=== PATIENT | male | born 1955 | race Caucasian/White ===

== ENCOUNTER 2020-10-06 13:37 | Outpatient (REF) | payer OTHER, SELFPAY ==
--- NOTE | ~2020-10-06 | XR_ITS ---
EXAMINATION: XR HAND, LEFT CLINICAL INFORMATION: S69.90XA - Unspecified injury of unspecified wrist, hand COMPARISON: None TECHNIQUE: PA, lateral, and oblique views of the left hand. FINDINGS: There is no fracture dislocation or destructive process. The ulnar variance is neutral. The MCP and PIP joints are unremarkable. There is some mild spurring at the DIP joints. No erosive change. XR/XR hand LT min 3V IMPRESSION: No fracture or dislocation or destructive process.
== END 2020-10-06 13:38 | disposition home or self-care (01) ==
LOC: HO.HMGCX 13:37
PROVIDERS: PCP Nurse Practitioner Family; Visit Provider Nurse Practitioner Family
DX: S69.92XA Unspecified injury of left wrist, hand and finger(s), initial encounter (principal); X58.XXXA Exposure to other specified factors, initial encounter; Y93.9 Activity, unspecified; Y92.9 Unspecified place or not applicable; Y99.9 Unspecified external cause status
CPT/HCPCS: 73130

== ENCOUNTER 2020-10-22 15:46 | Outpatient (REF) | payer OTHER, SELFPAY | END 2020-10-22 15:47 | disposition home or self-care (01) | LOC: HO.LNP 15:46 | PROVIDERS: Visit Provider Nurse Practitioner Family | DX: S41.109A Unspecified open wound of unspecified upper arm, initial encounter (principal); X58.XXXA Exposure to other specified factors, initial encounter; Y93.9 Activity, unspecified; Y92.9 Unspecified place or not applicable; Y99.9 Unspecified external cause status | CPT/HCPCS: 87071; 87147; 87186; 87205 ==

== ENCOUNTER 2021-03-16 10:03 | Outpatient (REF) | payer OTHER, SELFPAY ==
--- NOTE | ~2021-03-16 | XR_ITS ---
EXAMINATION: XR LUMBOSACRAL SPINE CLINICAL INFORMATION: Low back pain. COMPARISON: MRI lumbar spine 05/03/2010 TECHNIQUE: AP and lateral views of the lumbosacral spine are obtained. A lateral coned-down view of the lumbosacral junction is obtained. FINDINGS: There is no acute fracture or subluxation. There is worsening severe degenerative disc disease at L5-S1, with severe disc space narrowing, endplate sclerosis, and marginal osteophytes. There is moderate bilateral facet arthropathy at L4-L5 and L5-S1. XR/XR lumbar spine 2-3V IMPRESSION: Worsening severe degenerative disc disease at L5-S1 and moderate bilateral facet arthropathy at L4-L5 and L5-S1.
== END 2021-03-16 10:04 | disposition home or self-care (01) ==
LOC: HO.HMGCX 10:03
PROVIDERS: PCP Nurse Practitioner Family; Visit Provider Nurse Practitioner Family
DX: Z13.89 Encounter for screening for other disorder (principal)
CPT/HCPCS: 72100

== ENCOUNTER 2021-04-19 09:40 | Outpatient (REF) | payer OTHER, SELFPAY | END 2021-04-19 09:41 | disposition home or self-care (01) | LOC: HO.MRI 09:40 | PROVIDERS: Visit Provider Nurse Practitioner Family | DX: Z13.89 Encounter for screening for other disorder (principal) ==

== ENCOUNTER 2021-05-05 08:51 | Outpatient (REF) | payer OTHER, SELFPAY ==
--- NOTE | ~2021-05-05 | MR_ITS ---
EXAMINATION: MR LUMBAR SPINE WITHOUT CONTRAST CLINICAL INFORMATION: Lower back pain. COMPARISON: Lumbar spine MRI from 05/03/2010. Lumbar spine radiographs from 03/16/2021. TECHNIQUE: MRI of the lumbar spine was obtained using routine sequences without contrast. FINDINGS: Minimal degenerative spaces of L5 on S1. Otherwise, normal anatomic alignment. Advanced degenerative disc disease at L5-S1. Mild degenerative disc disease from L2-L5. Associated mixed Modic type discogenic endplate changes including minimal Modic type I discogenic edema at L5-S1. Mild marrow edema associated with the L3-L4 facets suggestive of degenerative stress reaction. No additional suspicious marrow edema. The vertebral body heights are well-maintained. The conus medullaris terminates at the level of L1-L2. The distal spinal cord is normal in appearance. No significant abnormalities of the paraspinal musculature. Multiple bilateral peripelvic renal cysts. Otherwise, limited evaluation of the intra-abdominal structures without significant abnormalities. The abdominal aorta is of normal contour and caliber. AXIAL SPINAL LEVELS: L1-L2: Normal annular contour. There is mild bilateral facet joint arthropathy. There is no neural foraminal stenosis. There is no spinal canal stenosis. L2-L3: Shallow diffuse disc bulge. There is mild bilateral facet joint arthropathy. There is no neural foraminal stenosis. There is no spinal canal stenosis. L3-L4: Shallow diffuse disc bulge. There is mild bilateral facet joint arthropathy. There is mild right and no left neural foraminal stenosis. There is no spinal canal stenosis. L4-L5: Mild diffuse disc bulge with superimposed right foraminal disc protrusion. There is moderate bilateral facet joint arthropathy. There is mild bilateral neural foraminal stenosis. There is narrowing of the subarticular zones with no overt spinal canal stenosis centrally. L5-S1: Mild diffuse disc bulge with posterior osseous ridging. There is moderate facet joint arthropathy. There is moderate bilateral neural foraminal stenosis. There is no spinal canal stenosis. MR/MR lumbar spine wo con IMPRESSION: Mild to moderate multilevel degenerative spondyloarthropathy of the lumbar spine as described in detail above. Most notably, there are moderate neural foraminal stenoses at L5-S1. Mild narrowings of the neural foramina and subarticular zones at L4-L5. No overt spinal canal stenosis centrally. Overall, degenerative changes appear similar to slightly progressed compared to exam from 2009.
== END 2021-05-05 08:52 | disposition home or self-care (01) ==
LOC: HO.MRI 08:51
PROVIDERS: Visit Provider Nurse Practitioner Family
DX: M54.50 Low back pain, unspecified (principal); M51.36 Other intervertebral disc degeneration, lumbar region
CPT/HCPCS: 72148

== ENCOUNTER 2021-06-01 07:46 | Outpatient (REF) | payer OTHER, SELFPAY ==
--- NOTE | ~2021-06-01 | CT_ITS ---
EXAMINATION: CT CHEST SCREENING CLINICAL INFORMATION: Nicotine dependence. Current smoker. COMPARISON: 01/03/2019 and 01/01/2018. TECHNIQUE: Multidetector volumetric CT imaging of the chest is performed without contrast using low dose technique. Additional 2D coronal and sagittal reformatted images and axial 3D maximum intensity projection (MIP) images are generated on the CT workstation. This CT examination was performed using dose optimization techniques as appropriate, variously including the following: *Automated exposure control *Adjustment of mA and/or kV according to patient size (this includes techniques or standardized protocols for targeted exams where dose is matched to indication/reason for exam; i.e. extremities or head) *Use of iterative reconstruction technique DLP: 48 mGy-cm. CTDI: 1.55 mGy. FINDINGS: LUNGS: Central airways are patent. There is some mild central bronchial wall thickening seen bilaterally. No confluent parenchymal disease identified. No bronchiectasis is seen. There are bujw-bj-tmoyglqq changes of centrilobular and paraseptal emphysema present. Calcified granulomas are present. There are a few scattered sub-4 mm noncalcified densities present. No suspicious lung masses identified. MEDIASTINUM: Visualized thyroid gland appears unremarkable. Heart normal size. Mild coronary artery calcified plaque present. No pericardial effusion. No thoracic aortic aneurysm. No mediastinal or hilar lymphadenopathy is appreciated. PLEURA: There is no pleural effusion. No pleural mass or thickening. AXILLA: No lymphadenopathy. UPPER ABDOMEN: Unremarkable OSSEOUS STRUCTURES: No destructive bony lesions are appreciated. CT/CT lung screening IMPRESSION: No suspicious lung nodules identified. Old granulomatous disease. ASSESSMENT: Lung-RADS category 2: Benign RECOMMENDATION: Routine annual low-dose CT screening in 12 months.
== END 2021-06-01 07:47 | disposition home or self-care (01) ==
LOC: HO.CT 07:46
PROVIDERS: PCP Nurse Practitioner Family; Visit Provider Physician Assistant Medical
DX: Z12.2 Encounter for screening for malignant neoplasm of respiratory organs (principal); F17.210 Nicotine dependence, cigarettes, uncomplicated
CPT/HCPCS: 71271

== ENCOUNTER 2021-12-09 15:40 | Outpatient (REF) | payer OTHER, SELFPAY ==
--- NOTE | ~2021-12-09 | XR_ITS ---
EXAMINATION: XR WRIST, RIGHT CLINICAL INFORMATION: Right wrist pain. COMPARISON: None TECHNIQUE: PA, lateral, and oblique views of the right wrist. FINDINGS: The bones and soft tissues are normal. No fracture. Alignment is anatomic with normal joint spaces. Probable old healed fifth metacarpal fracture. No erosions or abnormal soft tissue calcifications. XR/XR wrist RT min 3V IMPRESSION: No acute right wrist abnormality.
--- NOTE | ~2021-12-09 | XR_ITS ---
EXAMINATION: XR FOREARM, RIGHT CLINICAL INFORMATION: Right forearm pain. COMPARISON: None TECHNIQUE: AP and lateral views of the right forearm were obtained. FINDINGS: The bones and soft tissues are normal. No fracture. Imaged portions of the elbow and wrist are unremarkable. XR/XR forearm RT 2V IMPRESSION: Unremarkable right forearm.
== END 2021-12-09 15:41 | disposition home or self-care (01) ==
LOC: HO.HMGCX 15:40
PROVIDERS: PCP Nurse Practitioner Family; Visit Provider Nurse Practitioner Family
DX: M79.631 Pain in right forearm (principal); M25.531 Pain in right wrist
CPT/HCPCS: 73090; 73110

== ENCOUNTER 2022-03-15 15:31 | Outpatient (REF) | payer OTHER, SELFPAY ==
--- NOTE | ~2022-03-15 | MR_ITS ---
EXAMINATION: MRI FOREARM WITHOUT CONTRAST, RIGHT CLINICAL INFORMATION: Forearm pain. COMPARISON: X-ray 12/09/2021. TECHNIQUE: MRI multiplanar multisequence imaging in a high-field magnet without contrast. FINDINGS: Large ohdwv-bo-jmpc study, rylgf-mz-zobs extending from the level of the distal humeral metadiaphysis to the mid hand, limiting evaluation. There is significant motion artifact degrading images. In particular, there is significant motion artifact on the axial sequences. On the provided sequences, there is an area of amorphous increased T2/intermediate T1 signal, in the distal forearm at the level of the distal radial metadiaphysis. This is located in the region of the palmar muscles, possibly in the region of the flexor digitorum superficialis muscle. This extends over a distance of approximately 1 x 0.5 x 4.1 cm (transverse, AP, length). Reference image 6:04-29, 4:04-26. This is incompletely imaged and evaluated. No gross signal abnormalities otherwise in the muscles on the motion degraded sequence.. No significant abnormality is identified along the course of the neurovascular bundles. No evidence of obvious abnormal marrow signal in the visualized radius and ulna. MR/MR forearm RT wo con IMPRESSION: Large bkcsd-ob-cjug study with significant motion artifact degrading images, limiting evaluation. Apparent area of abnormal signal in the palmar muscles at the level of the distal forearm measuring approximately 1 x 0.5 x 4.1 cm. This is of indeterminate etiology and significance. This can be further evaluated with repeat MRI of the forearm without and with contrast.
== END 2022-03-15 15:32 | disposition home or self-care (01) ==
LOC: HO.MRI 15:31
PROVIDERS: Visit Provider Nurse Practitioner Family
DX: M79.631 Pain in right forearm (principal)
CPT/HCPCS: 73218

== ENCOUNTER 2022-04-15 08:06 | Outpatient (REF) | payer OTHER, SELFPAY ==
--- NOTE | ~2022-04-15 | MR_ITS ---
EXAMINATION: MR UPPER EXTREMITY WITHOUT CONTRAST, RIGHT CLINICAL INFORMATION: Right forearm pain. COMPARISON: 03/15/2022 TECHNIQUE: MRI of the right forearm was performed using routine sequences on a high-field scanner. The imaging of the patient with the forearm by the side significantly limits the assessment. There is significant motion artifact as well, particularly on axial T2 fat-saturated sequences and sagittal STIR sequences. Axial T2 fat-saturated sequences were repeated. There is poor fat saturation at the proximal and distal margins of the assessment, likely related to field inhomogeneity that was exacerbated by the positioning of the patient's arm. As on the prior study, the large [id number] limits the sensitivity and specificity of the study. FINDINGS: The previously seen abnormal T2 signal around the palmar musculature of the distal forearm does not demonstrate significant enhancement on postcontrast images. As seen on the prior study, this measures approximately 3.6 x 0.8 x 0.5 cm and occurs around the myotendinous junction of the flexor digitorum superficialis within the distal forearm, deep to the flexor carpi radialis tendon, around the region of the median nerve. No additional signal abnormalities are identified. No abnormal enhancement on postcontrast images. Bones are normal in signal intensity. No muscle atrophy or abnormal muscle enhancement. Tendons appear intact. Joints are unremarkable. MR/MR forearm RT wo/w con IMPRESSION: Assessment of the abnormality in the distal forearm is also limited by the large nqilh-al-twhy, positioning, and motion. There is no appreciable enhancement of this lesion on postcontrast images. It occurs along the course of the median nerve and could correspond to a peripheral nerve sheath tumor. A focal muscle strain is also on the differential, though felt to be less likely as it appears to have discrete margins on these images. Consider localized ultrasound to the palmar aspect of the distal forearm at the median nerve for further assessment.
== END 2022-04-15 08:07 | disposition home or self-care (01) ==
LOC: HO.MRI 08:06
PROVIDERS: Visit Provider Nurse Practitioner Family
DX: M79.631 Pain in right forearm (principal); R93.6 Abnormal findings on diagnostic imaging of limbs
CPT/HCPCS: 73220; A9585

== ENCOUNTER 2022-05-11 11:19 | Outpatient (REF) | payer OTHER, SELFPAY ==
--- NOTE | ~2022-05-11 | US_ITS ---
EXAMINATION: ULTRASOUND NONVASCULAR UPPER EXTREMITY, RIGHT CLINICAL INFORMATION: Distal forearm pain. Evaluate median nerve. COMPARISON: MRI 03/15/2022 and 04/15/2022 TECHNIQUE: Targeted ultrasound along the volar aspect of the distal right forearm. FINDINGS: There is a hypoechoic and slightly heterogeneous lesion of the median nerve just proximal to the carpal tunnel measuring 3.5 x 0.8 x 1.7 cm. Patient reports a history of carpal tunnel surgery. May represent a peripheral nerve sheath tumor or possibly a posttraumatic neuroma. This corresponds with the slightly heterogeneous and T2 hyperintense lesion on the MRI. US/US extremity nonvascular nieto IMPRESSION: The structure along the volar aspect of the distal right forearm is of the median nerve, possibly a peripheral nerve sheath tumor or neuroma.
== END 2022-05-11 11:20 | disposition home or self-care (01) ==
LOC: HO.HMGCX 11:19
PROVIDERS: PCP Nurse Practitioner Family; Visit Provider Nurse Practitioner Family
DX: M79.631 Pain in right forearm (principal); R93.6 Abnormal findings on diagnostic imaging of limbs
CPT/HCPCS: 76882

== ENCOUNTER → 2022-05-31 14:24 | Outpatient (BNVA) | payer OTHER, SELFPAY | PROVIDERS: PCP Nurse Practitioner Family; Visit Provider Physician Assistant | DX: M79.631 Pain in right forearm (principal); M25.521 Pain in right elbow; M25.531 Pain in right wrist; R93.6 Abnormal findings on diagnostic imaging of limbs | CPT/HCPCS: 99202 ==

== ENCOUNTER → 2022-06-15 10:01 | Outpatient (BNVA) | payer OTHER, SELFPAY | PROVIDERS: PCP Nurse Practitioner Family; Visit Provider Orthopaedic Surgery | DX: M79.631 Pain in right forearm (principal); G56.01 Carpal tunnel syndrome, right upper limb | CPT/HCPCS: 99212 ==

== ENCOUNTER 2022-12-14 07:32 | Emergency (ER) | payer OTHER, SELFPAY ==
--- NOTE | ~2022-12-14 | CT_ITS ---
EXAMINATION: CT ABDOMEN AND PELVIS WITH CONTRAST CLINICAL INFORMATION: Abdominal pain and nausea COMPARISON: None available. TECHNIQUE: Multidetector volumetric images were obtained from the superior aspect of the liver through the pubic symphysis following administration 85 mL of Omnipaque 350 intravenous contrast. Sagittal and coronal reformatted images were obtained on the technologist's workstation. Oral contrast: Yes This CT examination was performed using dose optimization techniques as appropriate, variously including the following: *Automated exposure control *Adjustment of mA and/or kV according to patient size (this includes techniques or standardized protocols for targeted exams where dose is matched to indication/reason for exam; i.e. extremities or head) *Use of iterative reconstruction technique DLP: 350 mGy-cm FINDINGS: LUNG BASES: The visualized lung bases are unremarkable. LIVER, GALLBLADDER, AND BILIARY TREE: The liver is normal in size, shape, and attenuation. No focal hepatic lesion or biliary ductal dilatation is present. The gallbladder is unremarkable with no evidence of radiopaque gallstones, gallbladder wall thickening, or obvious pericholecystic inflammatory changes. PANCREAS: Unremarkable. SPLEEN: Unremarkable. ADRENAL GLANDS: Unremarkable. KIDNEYS AND URETERS: Small bilateral renal stones. No hydronephrosis, ureteral dilatation or ureteral stone. Bilateral renal peripelvic cysts. No imaging follow-up recommended. BLADDER: Abnormal soft tissue in the bladder in the left UVJ region. This measures 1.2 x 1.5 cm. The prostate gland is slightly enlarged and protrudes into the base of the bladder however this does not appear to be related to the prostate gland. Possible bladder neoplasm should be considered. Urology consultation and correlation with urine cytology recommended. GASTROINTESTINAL TRACT: Diverticulosis of the colon. No evidence of diverticulitis. The small and large bowel are otherwise unremarkable. The appendix is unremarkable. ABDOMINAL WALL: No significant hernia is appreciated. LYMPH NODES: Normal. VASCULAR: Atherosclerotic disease. No aneurysm. PELVIC VISCERA: The prostate gland is slightly enlarged and protrudes into the base of the bladder. OSSEOUS STRUCTURES: Degenerative disc disease at L5-S1. CT/CT abdomen pelvis w IV con IMPRESSION: Abnormal soft tissue in the bladder near the left UVJ region. Neoplasm should be excluded. Correlation with urine cytology and urology consultation recommended. Small nonobstructing bilateral renal stones. Diverticulosis. Fleischner guidelines were followed.
[2022-12-14 07:40] VITALS: BP 146/84; BP 153/94; PULSE 77; PULSE 80; RESP 18; TEMP 36.8; O2SAT 96; O2SAT 97
--- NOTE | 2022-12-14 07:41 | ED.GENADULT ---
HPI - General Adult General Chief complaint: Abdominal Pain Stated complaint: POP LRF PAIN RAD TO LLF AND LOW BACKPAIN Time Seen by Provider: 12/14/22 07:41 Source: patient and EMS Mode of arrival: EMS Limitations: no limitations History of Present Illness HPI narrative: Patient is a 67 year old assigned male at with a history of DDD and COPD presenting to the emergency department today with right sided flank pain. Patient states that he has been having right flank pain intermittently for the last 4 days. Patient denies any dizziness, lightheadedness, vomiting, fever, chills, blurry vision, double vision, loss of vision, chest pain, difficulty breathing, shortness of breath, back pain, night sweats, pain with urination, increased urinary frequency, increased urinary urgency, blood in his urine or stool, syncope or a near syncopal episode, recent trauma or falls, bowel incontinence, bladder incontinence, bowel retention, bladder retention, or any other complaints at this time. Onset (ago): day(s) (4) Location: abdomen and right Severity: mild Severity scale (1-10): 3 Quality: stabbing Pain Consistency: intermittent Relieving factors: none Exacerbating factors: none Associated symptoms: nausea/vomiting Treatments prior to arrival: none Related Data Home Medications Medication Instructions Recorded Confirmed umeclidinium 62.5 mcg/actuation 1 inh inhalation DAILY 08/23/21 08/23/21 blister powder for inhalation (Incruse Ellipta) Previous Rx's Medication Instructions Recorded ear thermometer #1 ea 05/06/20 tape thermometer (Forehead #1 ea 05/07/20 Thermometer) fluticasone furoate 100 1 inh inhalation DAILY #28 ea 07/29/20 mcg-vilanterol 25 mcg/dose inhalation powder (Breo Ellipta) rolling walker with seat and #1 ea 10/01/20 brakes tizanidine 2 mg capsule 2 mg PO BEDTIME PRN muscle 01/27/21 spasticity 10 days #10 caps chair, wheel (Wheel chair) #1 ea 04/08/21 miscellaneous medical supply 1 ea miscellaneous DAILY weakness 05/06/21 30 days #1 ea ketoconazole 2 % topical cream 1 appl topical DAILY 14 days #30 05/24/21 grams tramadol 100 mg tablet 100 mg PO DAILY PRN pain 10 days 06/01/21 #10 tabs prednisone 10 mg tablet 10 mg PO DAILY 12 days #31 tabs 08/23/21 cetirizine 10 mg tablet 10 mg PO DAILY #90 tabs 11/18/21 tramadol 50 mg tablet 50 mg PO BID PRN pain 7 days #14 03/24/22 tabs diazepam 10 mg tablet 10 mg PO ONCE PRN anxiety/MRI 1 04/06/22 day #1 tab albuterol sulfate 90 mcg/actuation 1 puff inhalation QID PRN 07/11/22 aerosol inhaler (Ventolin HFA) shortness of breath or wheezing #8.5 grams ipratropium 0.5 mg-albuterol 3 mg 3 ml inhalation QID #90 mL 07/12/22 (2.5 mg base)/3 mL nebulization soln pantoprazole 40 mg tablet,delayed 40 mg PO DAILY #90 tabs 09/11/22 release gabapentin 100 mg capsule 100 mg PO BEDTIME 30 days #30 caps 09/30/22 bed wedge #1 ea 10/05/22 atorvastatin 40 mg tablet 40 mg PO DAILY 90 days #90 tabs 12/02/22 cholecalciferol (vitamin D3) 50 50 mcg PO DAILY #90 tabs 12/09/22 mcg (2,000 unit) tablet magnesium citrate 75 ml PO DAILY PRN constipation 12/14/22 #296 mL Allergies Allergy/AdvReac Type Severity Reaction Status Date / Time No Known Allergies Allergy Verified 08/26/22 11:52 [No Known Allergies*] Review of Systems Constitutional: Constitutional: Reports no additional constitutional complaints, Denies chills, Denies fever(s) and Denies night sweats Eyes: Eyes: Reports no additional eye complaints, Denies blurry vision, Denies change in vision, Denies diplopia, Denies eye discharge, Denies loss of vision and Denies eye pain ENT: Denies dizziness Cardiovascular: Cardiovascular: Reports no additional cardiovascular complaints, Denies chest pain, Denies lightheadedness, Denies Loss of Consciousness and Denies dyspnea Respiratory: Respiratory: Reports no additional respiratory complaints and Denies dyspnea Gastrointestinal: Gastrointestinal: Reports no additional gastrointestinal complaints, Denies abdominal pain, Denies melena, Denies hematochezia, Denies change in bowel habits, Denies change in stool character and Reports nausea Genitourinary: Genitourinary: Reports no additional male genitourinary complaints, Denies hematuria, Denies oliguria, Denies difficulty urinating, Denies dysuria, Reports flank pain, Denies urinary frequency, Denies urinary hesitancy, Denies urinary incontinence and Denies urinary urgency Musculoskeletal: Musculoskeletal: Reports no additional musculoskeletal complaints, Denies numbness and Denies tingling Neurologic: Denies dizziness, Denies loss of vision, Denies numbness and Denies tingling Psychiatric: Psychiatric: Reports no additional psychiatric complaints Endocrine: Endocrine: Reports no additional endocrine complaints Hematologic/Lymphatic: Hematologic/Lymphatic: Reports no additional hematologic/lymphatic complaints Allergic/Immunologic: Allergic/Immunologic: Reports no additional allergic/immunologic complaints [facility] Past Medical History Attestation statement: The following information was validated with the patient. Source: old records reviewed and nursing notes reviewed Medical History Asthma GERD (gastroesophageal reflux disease) High cholesterol Muscle pain Social History Social History Housing: Apartment Patient Tobacco Use Status: Former Tobacco user Years Smoked: quit 2 years ago e-Cigarette/Vaping Use: Never Used Second Hand Smoke Exposure: No Advance Directives: No Advance Directives Information Provided: Yes service: No Current occupational status: disabled Physical Exam ED Vital Signs: Vital Signs - 24 hr 12/14/22 07:40 12/14/22 12:17 Temperature 98.3 F 98.3 F Pulse Rate 77 77 Respiratory Rate 18 18 Blood Pressure 153/94 H 153/94 H Pulse Oximetry 97 97 Oxygen Delivery Method Room Air Room Air BMI result Body Mass Index 20.0 Const General: cooperative, no acute distress, alert and awake Nutritional Appearance: well nourished Orientation/consciousness: patient oriented x3 Limitations: no limitations HENMT Head: Yes normal to inspection and Yes atraumatic Ears: hearing grossly normal bilaterally and external ears normal General nose exam: Normal external nose present, no nasal discharge noted and no epistaxis Face and sinus: Yes normal facial exam, No abrasion and No laceration Mouth: Normal oral and palatal mucosa present, no drooling and no muffled voice Eyes General: appearance normal, both eyes and all related structures Periorbital: periorbital findings normal Eyelids: Yes eyelids normal Conjunctivae: conjunctivae normal Pupils: Equal, round and reactive pupils present EOM: EOMs intact bilaterally Neck Neck: Yes normal visual inspection, Yes full ROM and Yes no lymphadenopathy Chest Chest palpation & inspection: normal inspection of the chest Resp Effort & Inspection: normal respiratory effort and able to speak in complete sentences GI Inspection: Yes normal to inspection Palpation (GI): Soft to palpation, not firm, nontender and no guarding General: Yes no CVA tenderness Back/Spine/Pelvis Back: no CVA tenderness Neuro General: patient oriented x3 and moves all extremities Cranial nerves: Yes Equal, round and reactive pupils present Cognition (Neuro): normal cognition Motor exam (neuro): 5/5 motor strength present throughout Sensory Exam: Normal double simultaneous stimulation for sensation Coordination: [id number] test normal Extrem General: Yes normal to inspection, Yes full ROM and Yes capillary refill normal Psych Appearance: grossly normal Mental Status: mental status grossly normal Affect: normal affect Attitude: cooperative Thought process: Normal thought process present Thought content: Normal thought content present Insight: Good insight present (Psych) Medications Administered Discontinued Medications Generic Name Dose Route Start Last Admin Trade Name Ezra PRN Reason Stop Dose Admin Iohexol 100 ml 12/14/22 08:54 12/14/22 08:55 Iohexol 350 Mg/Ml 100 Ml Infus..Btl IV 12/14/22 08:55 85 ml ONCE ONE Administration Ketorolac Tromethamine 15 mg 12/14/22 07:41 12/14/22 08:09 Ketorolac Tromethamine 15 Mg/Ml Vial IVPUSH 12/14/22 07:42 15 mg ONCE ONE Administration Medical Decision Making Medical Decision Making [facility] Narrative: Patient is a 67 year old assigned male at with a history of COPD and DDD presenting to the emergency department today with right flank pain. Patient's physical exam was unremarkable. Patient's blood work was unremarkable. Patient's abdomen/pelvis CT showed a possible bladder neoplasm as well as bilateral non-obstructing renal stones. I consulted with urology who confirmed the patient was appropriate for discharge and should follow up in the office on an outpatient basis for further work up of the possible neoplasm. I explained my physical exam findings as well as all test results to the patient. I answered all questions asked by the patient. I stressed the importance of the patient taking his medication as prescribed. I stressed the importance of the patient following up with his primary care provider. I stressed the importance of the patient returning to the emergency department immediately if his symptoms were to worsen or if he were to develop any dizziness, shortness of breath, difficulty breathing, chest pain, blurry vision, loss of vision, nausea, vomiting, abdominal pain, fever, chills, back pain, or any other complaints. Patient verbalized agreement and understanding with this treatment plan and discharge. Differential Diagnosis Differential Diagnoses: The differential diagnosis associated with the presentation includes bladder neoplasm, constipation, passed kidney stones Admission/Observation Patient would have been admitted to the hospital had his work up had any findings where hospital admission was appropriate. Consult Healthcare Provider Management of the patient was discussed with: [employer] (spoke with urology as noted in the MDM portion of this chart. ) Lab Data [facility] Lab Attestation statement: I reviewed the patient's lab results. 12/14/22 08:06 12/14/22 08:06 Labs: Lab Results 12/14/22 12/14/22 12/14/22 Range/Units 08:03 08:03 08:06 WBC 4.9 (4.8-10.8) X10*3/uL RBC 5.28 (4.60-5.80) X10*6/uL Hgb 15.9 (14.0-18.0) g/dl Hct 47.5 (42.0-52.0) % MCV 90.0 (80.0-98.0) fL MCH 30.1 (27.0-33.0) pg MCHC 33.5 (31.0-36.0) g/dl RDW 12.9 (11.0-16.0) % Plt Count 192 (160-400) X10*3/uL MPV 9.1 L (9.4-12.4) fL Immature Gran % (Auto) 0.4 (0.0-0.4) % Neut % (Auto) 69.3 (45-73) % Lymph % (Auto) 17.6 L (20-40) % [place] % (Auto) 9.8 (2-11) % Eos % (Auto) 2.5 (0-4) % Baso % (Auto) 0.4 (0-2) % Lymph # (Auto) 0.9 L (1.2-4.9) X10*3/uL [place] # (Auto) 0.5 (0.1-1.2) X10*3/uL Eos # (Auto) 0.1 (0.0-0.4) X10*3/uL Baso # (Auto) 0.0 (0.0-0.2) X10*3/uL Abs Immat Gran (auto) 0.02 (0.00-0.03) X10*3/uL Absolute Neuts (auto) 3.4 (2.0-8.3) x10*3/uL Absolute Nucleated RBC 0.000 (0.0-0.012) X10*3/uL Nucleated RBC % (auto) 0.0 (0.0-0.2) /100WBC Sodium (135-145) mmol/L Potassium (3.3-5.1) mmol/L Chloride (96-108) mmol/L Carbon Dioxide (22-29) mmol/L Anion Gap (12-20) BUN (9-16) mg/dL Creatinine (0.5-1.4) mg/dL Estim Creat Clear Calc Estimated GFR Random Glucose (60-115) mg/dL Calcium (8.4-10.2) mg/dL Magnesium (1.6-2.6) mg/dL Total Bilirubin (0.0-1.0) mg/dL AST (5-37) U/L ALT (0-40) U/L Alkaline Phosphatase (39-117) U/L Total Protein (6.5-8.0) g/dL Albumin (3.5-5.0) g/dL Urine Color Yellow Urine Appearance Clear Urine pH 8.0 (5.0-9.0) Ur Specific [place] 1.015 (1.005-1.025) Urine Protein Negative (Neg-Trace) mg/dL Urine Glucose (UA) Negative (Negative) mg/dL Urine Ketones Negative (Negative) mg/dL Urine Blood Negative (Negative) Urine Nitrite Negative (Negative) Ur Leukocyte Esterase Negative (Negative) COVID-19 (ADRIANA) Negative (Negative) COVID-19 Clin Com See Note 12/14/22 Range/Units 08:06 WBC (4.8-10.8) X10*3/uL RBC (4.60-5.80) X10*6/uL Hgb (14.0-18.0) g/dl Hct (42.0-52.0) % MCV (80.0-98.0) fL MCH (27.0-33.0) pg MCHC (31.0-36.0) g/dl RDW (11.0-16.0) % Plt Count (160-400) X10*3/uL MPV (9.4-12.4) fL Immature Gran % (Auto) (0.0-0.4) % Neut % (Auto) (45-73) % Lymph % (Auto) (20-40) % [place] % (Auto) (2-11) % Eos % (Auto) (0-4) % Baso % (Auto) (0-2) % Lymph # (Auto) (1.2-4.9) X10*3/uL [place] # (Auto) (0.1-1.2) X10*3/uL Eos # (Auto) (0.0-0.4) X10*3/uL Baso # (Auto) (0.0-0.2) X10*3/uL Abs Immat Gran (auto) (0.00-0.03) X10*3/uL Absolute Neuts (auto) (2.0-8.3) x10*3/uL Absolute Nucleated RBC (0.0-0.012) X10*3/uL Nucleated RBC % (auto) (0.0-0.2) /100WBC Sodium 142 (135-145) mmol/L Potassium 4.4 (3.3-5.1) mmol/L Chloride 109 H (96-108) mmol/L Carbon Dioxide 26 (22-29) mmol/L Anion Gap 11 L (12-20) BUN 15 (9-16) mg/dL Creatinine 0.71 (0.5-1.4) mg/dL Estim Creat Clear Calc 95.3 Estimated GFR > 60 Random Glucose 89 (60-115) mg/dL Calcium 9.3 (8.4-10.2) mg/dL Magnesium 2.3 (1.6-2.6) mg/dL Total Bilirubin 0.9 (0.0-1.0) mg/dL AST 18 (5-37) U/L ALT 16 (0-40) U/L Alkaline Phosphatase 81 (39-117) U/L Total Protein 6.0 L (6.5-8.0) g/dL Albumin 3.9 (3.5-5.0) g/dL Urine Color Urine Appearance Urine pH (5.0-9.0) Ur Specific [place] (1.005-1.025) Urine Protein (Neg-Trace) mg/dL Urine Glucose (UA) (Negative) mg/dL Urine Ketones (Negative) mg/dL Urine Blood (Negative) Urine Nitrite (Negative) Ur Leukocyte Esterase (Negative) COVID-19 (ADRI[place]) (Negative) COVID-19 Clin Com Independent Interpretation I performed an independent interpretation of an: CT Scan Interpretation: My interpretation is in agreement with the radiologist's impression of this imaging study. EXAMINATION: CT ABDOMEN AND PELVIS WITH CONTRAST? CLINICAL INFORMATION: Abdominal pain and nausea? COMPARISON: None available. TECHNIQUE: Multidetector volumetric images were obtained from the superior aspect of the liver through the pubic symphysis following administration 85 mL of Omnipaque 350 intravenous contrast. Sagittal and coronal reformatted images were obtained on the technologist's workstation.? Oral contrast: Yes This CT examination was performed using dose optimization techniques as appropriate, variously including the following: *Automated exposure control *Adjustment of mA and/or kV according to patient size (this includes techniques or standardized protocols for targeted exams where dose is matched to indication/reason for exam; i.e. extremities or head) *Use of iterative reconstruction technique DLP: 350 mGy-cm FINDINGS: LUNG BASES: The visualized lung bases are unremarkable.? LIVER, GALLBLADDER, AND BILIARY TREE: The liver is normal in size, shape, and attenuation. No focal hepatic lesion or biliary ductal dilatation is present. The gallbladder is unremarkable with no evidence of radiopaque gallstones, gallbladder wall thickening, or obvious pericholecystic inflammatory changes.? PANCREAS: Unremarkable.? SPLEEN: Unremarkable.? ADRENAL GLANDS: Unremarkable.? KIDNEYS AND URETERS: Small bilateral renal stones. No hydronephrosis, ureteral dilatation or ureteral stone. Bilateral renal peripelvic cysts. No imaging follow-up recommended. BLADDER: Abnormal soft tissue in the bladder in the left UVJ region. This measures 1.2 x 1.5 cm. The prostate gland is slightly enlarged and protrudes into the base of the bladder however this does not appear to be related to the prostate gland. Possible bladder neoplasm should be considered. Urology consultation and correlation with urine cytology recommended. GASTROINTESTINAL TRACT: Diverticulosis of the colon. No evidence of diverticulitis. The small and large bowel are otherwise unremarkable. The appendix is unremarkable.? ABDOMINAL WALL: No significant hernia is appreciated.? LYMPH NODES: Normal. VASCULAR: Atherosclerotic disease. No aneurysm. PELVIC VISCERA: The prostate gland is slightly enlarged and protrudes into the base of the bladder.? OSSEOUS STRUCTURES: Degenerative disc disease at L5-S1.? CT/CT abdomen pelvis w IV con IMPRESSION: Abnormal soft tissue in the bladder near the left UVJ region. Neoplasm should be excluded. Correlation with urine cytology and urology consultation recommended. Small nonobstructing bilateral renal stones. Diverticulosis.? ? Fleischner guidelines were followed. Dictated By: Jeannette Cox MD Signed By: Electronically signed by Jeannette Cox MD 12/14/22 1126 Independent Historian Clinical information obtained from an independent historian. History obtained from or confirmed by: EMS Critical Care Time Critical Care Time Critical Care Time: Yes Total Critical Care Time: 30 Attestation: I spent 30 minutes of Critical Care Time with this patient. This does not include time spent on separately reported billable procedures. Discharge Plan Discharge Clinical Impression: Bladder neoplasm, Flank pain, Constipation Patient Disposition: Home, Self-Care Instructions: Constipation (DC), Flank Pain (ED) Additional Instructions: Follow up with your primary care provider and a urologist. Return to the emergency department immediately if your symptoms worsen or if you develop any dizziness, shortness of breath, difficulty breathing, chest pain, blurry vision, loss of vision, nausea, vomiting, abdominal pain, fever, chills, back pain, or any other complaints. Prescriptions: New magnesium citrate Solution 75 ml PO DAILY PRN (Reason: constipation) Qty: 296 0RF No Action (DME) ear thermometer Misc See Rx Instructions .ROUTE .MEDSUPPLY Qty: 1 0RF Rx Instructions: As directed (DME) Forehead Thermometer Misc See Rx Instructions .ROUTE .MEDSUPPLY Qty: 1 0RF Rx Instructions: As directed Breo Ellipta 100-25 mcg/dose blister with device 1 inh inhalation DAILY Qty: 28 2RF (DME) rolling walker with seat and brakes See Rx Instructions .Route .MEDSUPPLY Qty: 1 0RF Rx Instructions: As directed tizanidine 2 mg capsule 2 mg PO BEDTIME PRN (Reason: muscle spasticity) 10 Days Qty: 10 0RF (DME) Wheel chair Kit See Rx Instructions .Route Qty: 1 0RF Rx Instructions: use daily as needed ketoconazole 2 % cream 1 appl topical DAILY 14 Days Qty: 30 0RF tramadol 100 mg tablet 100 mg PO DAILY PRN (Reason: pain) 10 Days Qty: 10 0RF cetirizine 10 mg tablet 10 mg PO DAILY Qty: 90 1RF tramadol 50 mg tablet 50 mg PO BID PRN (Reason: pain) 7 Days Qty: 14 0RF Rx Instructions: NARCOTIC PAIN MEDICATION do not share, drive while on this medication, or share this medication diazepam 10 mg tablet 10 mg PO ONCE PRN (Reason: anxiety/MRI) 1 Days Qty: 1 0RF Rx Instructions: please take tab 45 minutes before procedure, you cannot drive while on this med albuterol sulfate [Ventolin HFA] 90 mcg/actuation HFA aerosol inhaler 1 puff inhalation QID PRN (Reason: shortness of breath or wheezing) Qty: 8.5 2RF ipratropium-albuterol 0.5 mg-3 mg(2.5 mg base)/3 mL solution for nebulization 3 ml inhalation QID Qty: 90 0RF pantoprazole 40 mg tablet,delayed release (DR/EC) 40 mg PO DAILY Qty: 90 0RF gabapentin 100 mg capsule 100 mg PO BEDTIME 30 Days Qty: 30 1RF (DME) bed wedge See Rx Instructions .Route .MEDSUPPLY Qty: 1 0RF Rx Instructions: As directed atorvastatin 40 mg tablet 40 mg PO DAILY 90 Days Qty: 90 0RF cholecalciferol (vitamin D3) 50 mcg (2,000 unit) tablet 50 mcg PO DAILY Qty: 90 1RF miscellaneous medical supply Misc 1 ea miscellaneous DAILY 30 Days Qty: 1 0RF Rx Instructions: CANE with a handle Incruse Ellipta 62.5 mcg/actuation blister with device 1 inh inhalation DAILY prednisone 10 mg tablet 10 mg PO DAILY 12 Days Qty: 31 0RF Rx Instructions: take 5 tabs for 2 days, 4 tabs for 2 days, 3 tabs for 2 days, 2 tabs for 2 days, 1 tab for 2 days, .5 tab for 2 days Referrals: [facility] [Provider Group] (Call to establish and follow up with a urologist to further investigate a possible bladder neoplasm.) Fernando Esparza, [employer] [Primary Care Provider] - Interventions: ED Discharge Assessment Last Done: 12/14/22 12:17 Discharge Date/Time: 12/14/22 12:18 Print Language: Yoruba
[2022-12-14] MEDS: Ketorolac Tromethamine 15 MG/ML VIAL IVPUSH (08:09)
[2022-12-14 08:11] LABS: MANUAL DIFF FLAG NO
[2022-12-14 08:13] LABS: Basophils Percent Auto 0.4 % (0-2); Eosinophils Absolute Auto 0.1 X10*3/uL (0.0-0.4); Eosinophils Percent Auto 2.5 % (0-4); Hematocrit 47.5 % (42.0-52.0); Hemoglobin 15.9 g/dl (14.0-18.0); Imm Gran Abs Auto 0.02 X10*3/uL (0.00-0.03); Imm Gran Pct Auto 0.4 % (0.0-0.4); Lymphocytes Absolute Auto 0.9 X10*3/uL (1.2-4.9); Lymphocytes Percent Auto 17.6 % (20-40); Mean Corpuscular HGB Conc 33.5 g/dl (31.0-36.0); Mean Corpuscular Hemoglobin 30.1 pg (27.0-33.0); Mean Platelet Volume 9.1 fL (9.4-12.4); Monocytes Absolute Auto 0.5 X10*3/uL (0.1-1.2); Monocytes Percent Auto 9.8 % (2-11); Neutrophils Absolute Auto 3.4 x10*3/uL (2.0-8.3); Neutrophils Percent Auto 69.3 % (45-73); Platelet Count 192 X10*3/uL (160-400); Red Blood Count 5.28 X10*6/uL (4.60-5.80); Red Cell Distribution Width 12.9 % (11.0-16.0); White Blood Count 4.9 X10*3/uL (4.8-10.8)
[2022-12-14 08:15] LABS: Appearance Urine Clear; Color Urine Yellow; Glucose Urine UA Negative (Negative); Leukocyte Esterase Urine Negative (Negative); Nitrite Urine Negative (Negative); Specific Gravity - Urine 1.015 (1.005-1.025); Urine Blood Negative (Negative); Urine Ketones Negative (Negative); Urine Protein Negative (Neg-Trace)
[2022-12-14 08:27] LABS: Alanine Aminotransferase 16 U/L (0-40); Albumin Level 3.9 g/dL (3.5-5.0); Alkaline Phosphatase 81 U/L (39-117); Anion Gap 11 (12-20); Aspartate Amino Transferase 18 U/L (5-37); Bilirubin Total 0.9 mg/dL (0.0-1.0); Blood Urea Nitrogen 15 mg/dL (9-16); Calcium 9.3 mg/dL (8.4-10.2); Carbon Dioxide 26 mmol/L (22-29); Chloride 109 mmol/L (96-108); Creatinine Clr Calc Pharmacy 95.3; Estimated Glomerular Filt Rate > 60; Glucose Random 89 mg/dL (60-115); Magnesium 2.3 mg/dL (1.6-2.6); Potassium 4.4 mmol/L (3.3-5.1); Sodium 142 mmol/L (135-145)
[2022-12-14 08:54] LABS: COVID-19 Test Negative (Negative); IDNOW Serial# BCCEAD1C
[2022-12-14] MEDS: iohexoL 350 MG/ML 100 ML INFUS..BTL IV (08:55)
[2022-12-14 12:17] VITALS: BP 153/94; PULSE 77; RESP 18; TEMP 36.8; O2SAT 97
== END 2022-12-14 12:18 | disposition home or self-care (01) ==
PROVIDERS: Physician Assistant Medical; Emergency Provider Emergency Medicine; PCP Nurse Practitioner Family
DX: K59.00 Constipation, unspecified (principal); R10.9 Unspecified abdominal pain; D41.4 Neoplasm of uncertain behavior of bladder; Z20.822 Contact with and (suspected) exposure to COVID-19; Z87.891 Personal history of nicotine dependence; Z79.899 Other long term (current) drug therapy
CPT/HCPCS: 74177; 80053; 81003; 83735; 85025; 87635; 96374; 99284; J1885; Q9967

== ENCOUNTER 2022-12-28 10:37 | Outpatient (REF) | payer OTHER, SELFPAY ==
--- NOTE | ~2022-12-28 | XR_ITS ---
EXAMINATION: XR CHEST CLINICAL INFORMATION: COPD COMPARISON: Previous chest CT May 2021 TECHNIQUE: 2 views of the chest were obtained. FINDINGS: The cardiac and mediastinal contours are normal. The lungs are clear. The lungs are well inflated. No pleural effusion or thorax. Bony structures are unremarkable. XR/XR chest 2V IMPRESSION: No evidence for acute disease in the chest.
[2022-12-28 11:22] LABS: MANUAL DIFF FLAG NO
[2022-12-28 11:43] LABS: Basophils Absolute Auto 0.1 X10*3/uL (0.0-0.2); Basophils Percent Auto 0.6 % (0-2); Eosinophils Absolute Auto 0.1 X10*3/uL (0.0-0.4); Eosinophils Percent Auto 0.8 % (0-4); Hematocrit 48.9 % (42.0-52.0); Hemoglobin 16.2 g/dl (14.0-18.0); Imm Gran Abs Auto 0.03 X10*3/uL (0.00-0.03); Imm Gran Pct Auto 0.3 % (0.0-0.4); Lymphocytes Absolute Auto 1.3 X10*3/uL (1.2-4.9); Lymphocytes Percent Auto 13.1 % (20-40); Mean Corpuscular HGB Conc 33.1 g/dl (31.0-36.0); Mean Corpuscular Hemoglobin 30.8 pg (27.0-33.0); Mean Platelet Volume 9.8 fL (9.4-12.4); Monocytes Absolute Auto 0.8 X10*3/uL (0.1-1.2); Monocytes Percent Auto 8.5 % (2-11); Neutrophils Absolute Auto 7.5 x10*3/uL (2.0-8.3); Neutrophils Percent Auto 76.7 % (45-73); Platelet Count 278 X10*3/uL (160-400); Red Blood Count 5.26 X10*6/uL (4.60-5.80); White Blood Count 9.7 X10*3/uL (4.8-10.8)
[2022-12-28 12:20] LABS: Alanine Aminotransferase 16 U/L (0-40); Albumin Level 4.3 g/dL (3.5-5.0); Alkaline Phosphatase 92 U/L (39-117); Anion Gap 11 (12-20); Aspartate Amino Transferase 19 U/L (5-37); Bilirubin Total 1.5 mg/dL (0.0-1.0); Blood Urea Nitrogen 20 mg/dL (9-16); Calcium 9.3 mg/dL (8.4-10.2); Carbon Dioxide 29 mmol/L (22-29); Chloride 105 mmol/L (96-108); Estimated Glomerular Filt Rate > 60; Glucose Random 98 mg/dL (60-115); Potassium 3.8 mmol/L (3.3-5.1); Sodium 141 mmol/L (135-145); Total Protein 6.8 g/dL (6.5-8.0)
[2022-12-28 12:28] LABS: Prostate Specific Antigen Scr 3.15 ng/mL (<0.05-4.0); TSH reflex Free T4 1.35 uIU/mL (0.32-4.0)
[2022-12-28 14:00] LABS: Appearance Urine Turbid; Color Urine Dark Yellow; Glucose Urine UA Negative (Negative); Leukocyte Esterase Urine Negative (Negative); Nitrite Urine Negative (Negative); PH 5.5 (5.0-9.0); Specific Gravity - Urine 1.025 (1.005-1.025); Urine Blood Negative (Negative); Urine Ketones Negative (Negative); Urine Protein Trace mg/dL (Neg-Trace)
== END 2022-12-28 10:38 | disposition home or self-care (01) ==
LOC: HO.HMGCX 10:37
PROVIDERS: PCP Nurse Practitioner Family; Visit Provider Nurse Practitioner Family
DX: J44.9 Chronic obstructive pulmonary disease, unspecified (principal); Z12.5 Encounter for screening for malignant neoplasm of prostate; F41.9 Anxiety disorder, unspecified; R63.8 Other symptoms and signs concerning food and fluid intake
CPT/HCPCS: 36415; 71046; 80053; 81003; 84153; 84443; 85025

== ENCOUNTER → 2022-12-30 08:25 | Outpatient (BNVA) | payer OTHER, SELFPAY | PROVIDERS: PCP Nurse Practitioner Family; Visit Provider Nurse Practitioner Family | DX: D41.4 Neoplasm of uncertain behavior of bladder (principal) | CPT/HCPCS: 52000; 99202 ==

== ENCOUNTER 2023-01-30 11:32 | Day surgery (SDC) | payer OTHER, SELFPAY ==
[2023-01-27 09:16] VITALS: BMI 19.6
[2023-01-30] VITALS (11 sets, daily range): BP systolic 132–154; BP diastolic 72–82; PULSE 66–94; RESP 16–20; TEMP 36.7–37.4; O2SAT 96–99
[2023-01-30] MEDS: Lactated Ringers 1,000 ML 100 ML IVCONT (12:51)
--- NOTE | 2023-01-30 13:42 | HO.ANESPROP2 ---
HPI - Anesthesia Eval Consult details Narrative: 67yo for cysto Copd with freqnt SOB PMFSH Active Problems Active Problems: All Active Problems (Updated 01/30/23 @ 12:47 by Breanna Sanders RN) Acute asthma (Acute) Bronchitis with chronic airway obstruction (Acute) History of smoking (Acute) Chronic GERD (Acute) Unilateral primary osteoarthritis, right knee (Acute) COPD (chronic obstructive pulmonary disease) (Acute) Hand injury (Acute) Abscess (Acute) Pseudofolliculitis (Acute) Low back pain radiating to both legs (Acute) DDD (degenerative disc disease), lumbar (Acute) Physical exam (Acute) Screening PSA (prostate specific antigen) (Acute) Screening for colon cancer (Acute) Right wrist pain (Acute) Right forearm pain (Acute) Right elbow pain (Acute) Abnormal MRI scan, arm (Acute) Numbness of right hand (Acute) Carpal tunnel syndrome of right wrist (Acute) Complaint of melena (Acute) Hematemesis (Acute) Abdominal pain (Acute) Bladder neoplasm of uncertain malignant potential (Acute) Past Medical History Medical History (Updated 01/30/23 @ 12:47 by Breanna Sanders RN) Asthma Bilateral cataracts GERD (gastroesophageal reflux disease) High cholesterol Muscle pain Family History Family history of problems with anesthesia: No Surgical History History of Problems with Anesthesia: No Social History Social History Housing: Apartment Patient Tobacco Use Status: Former Tobacco user Years Smoked: quit 2 years ago e-Cigarette/Vaping Use: Never Used Second Hand Smoke Exposure: No Use of substances other than those prescribed or required for medical reasons: Yes Are you DNR?: No Advance Directives: No Advance Directives Information Provided: Yes Recently lost weight without trying: Yes How much weight loss: 24-33 pounds service: No Current occupational status: disabled Cognitive needs: No Hearing needs: No Vision needs: No Meds Allergies Allergy/AdvReac Type Severity Reaction Status Date / Time No Known Allergies Allergy Verified 12/30/22 09:04 [No Known Allergies*] Active Medications: Current Medications Albuterol Sulfate (Albuterol Sulfate (0.083%) 2.5 Mg/3 Ml Vial.Neb) 2.5 mg INHALE ONCE PRN PRN Reason: Shortness of Breath/Wheezing Lactated Ringer's (Lr) 1,000 mls @ 100 mls/hr IVCONT .Q10H ROXIE Last Admin: 01/30/23 12:51 Dose: 100 mls/hr Home Medications Medication Instructions Recorded Confirmed Last Taken Type umeclidinium 62.5 mcg/actuation 1 inh inhalation DAILY 08/23/21 08/23/21 Unknown History blister powder for inhalation (Incruse Ellipta) Exam Exam Date and Time: January 30, 2023 1342 Height,Weight and Vital Signs: Height 5 ft 11 in Weight 63.73 kg Airway Mallampati Class: I TM Dist: >3cm Neck ROM: Full Denture: Upper and Lower Heart: rr Lungs: cta Assessment and Plan Assessment Anesthesia Assessment: Anesthesia Plan Discussed and Chart Reviewed Final Anesthetic Review Family History of Problems with Anesthesia: No History of Problems with Anesthesia: No NPO: Yes ASA Class: II Final Preanesthetic Review: No Changes in Pt Med Stat, Meds/Allgs Chart Reviewed, Consent Obtained/Reviewed and Anes Risks/Benef Reviewed Patient Risk: Intermediate Procedure Risk: Low Anesthetic Plan Anesthetic Plan: GA Disposition: Standard PACU
[2023-01-30] MEDS: Albuterol Sulfate (0.083%) 2.5 MG/3 ML VIAL.NEB INHALE (13:49)
--- NOTE | 2023-01-30 14:52 | MHC.SHP ---
Pre-Procedural Eval Section A Date of Service: 01/30/23 The patient is an INPATIENT: No Changes since office visit: No Cold of Flu in the past 2 weeks, No New Medical Problems, No Changes in Medication and No Patient answered all questions The History & Physical has been completed within 30 days and I have reviewed it.: Yes Section B Chief Complaint: Neoplasm of uncertain behavior of bladder Allergies: Allergies Allergy/AdvReac Type Severity Reaction Status Date / Time No Known Allergies Allergy Verified 12/30/22 09:04 [No Known Allergies*] Plan Diagnosis/Plan: Unchanged (TURBT) I have reviewed the history and physical and performed a pertinent physical examination on my patient. No changes have occurred unless specified. Time Spent With Patient Time: Total time managing care of this patient today ____ minutes.
--- NOTE | 2023-01-30 15:58 | P.OP_ITS ---
Operative Note Operative Note Date of Service: 01/30/23 Narrative: PreOperative Diagnosis: bladder cancer Post Operative Diagnosis: bladder cancer Procedure: TURBT, left stent placement Surgeon: Dr Vladimir Puentes Anesthesia: general Indications for procedure: Presentation with hematuria. Imaging showed 2 cm lesion on left lower bladder base. Confirmed in office cystoscopy. Procedure: After informed consent was verified the patient was brought to the operating room and placed in a supine position. Anesthesia was administered per protocol. The patient was placed in a modified dorsal lithotomy position and prepped and draped in a sterile fashion. Safety pause time-out was performed. Antibiotics were confirmed. A 26 Malaysian continuous flow resectoscope was inserted per urethra. The visual obturator was used in order to minimize potential for urethral damage. The lesion as described on imaging with seen at the left bladder base. It appeared to involve the area above the left ureteric orifice. Resection was performed using the bipolar resectoscope. After resection was performed we could see that the ureteric orifice had been involved with the area of tumor. Decision was made to place stent. The resectoscope was removed. The cystoscope was placed. The small opening was located. A Glidewire was placed up the ureteric orifice. A 6 Malaysian by 28 cm double-J stent was then placed without difficulty. At this point in attempts made to place the resectoscope in order to address a few small oozing areas. Unfortunately the patient had an erection and due to the length of his urethra we were unable to gain access to the bladder fully. At the completion of the procedure the bladder was irrigated. The cystoscope was removed. A [address] Maurice catheter was inserted into the bladder. 10 cc was placed in the balloon. The patient tolerated the procedure well. They were extubated in the operating room and transferred in stable condition to the recovery area. Pathology: Superficial bladder tumor Drains: None
[2023-01-30] MEDS: traMADoL HCL 50 MG TABLET PO (16:26)
[2023-01-30] MEDS: Phenazopyridine HCL 100 MG TABLET PO (16:27)
[2023-01-30] MEDS: Tranexamic Acid 1,000 MG in 0.9 % Sodium Chloride 50 ML 360 MG IV (17:08)
== END 2023-01-30 18:00 | disposition home or self-care (01) ==
PROVIDERS: PCP Nurse Practitioner Family; Visit Provider Urology
PROC: 0TBB8ZZ Excision of Bladder, Via Natural or Artificial Opening Endoscopic (ICD-10-PCS; CPT 52234; principal; 2023-01-30 13:50)
DX: C67.6 Malignant neoplasm of ureteric orifice (principal); R31.9 Hematuria, unspecified; J44.9 Chronic obstructive pulmonary disease, unspecified; G47.33 Obstructive sleep apnea (adult) (pediatric); E78.5 Hyperlipidemia, unspecified; Z99.89 Dependence on other enabling machines and devices; Z79.51 Long term (current) use of inhaled steroids; Z79.899 Other long term (current) drug therapy; Z87.891 Personal history of nicotine dependence
CPT/HCPCS: 52234; 88307; 94640; C1758; C1769; C2617; J1956; J2405; J2550; J3010

== ENCOUNTER → 2023-01-30 11:32 | Outpatient (BNV) | payer OTHER, SELFPAY | PROVIDERS: PCP Nurse Practitioner Family; Visit Provider Urology | DX: C67.0 Malignant neoplasm of trigone of bladder (principal) | CPT/HCPCS: 52235; 52282 ==

== ENCOUNTER 2023-02-15 13:18 | Outpatient (AMB) | payer OTHER, SELFPAY ==
--- NOTE | 2023-02-15 13:20 | A.OFFVIS_ITS ---
Intake Intake Visit Reasons: 2 weeks (turbt) Intake Note: Patient is present for Follow Up TURBT Urology Med: None Antibiotic Allergy: None Blood Thinner: None Pharmacy: [facility] Allergies No Known Allergies [No Known Allergies*] Allergy (Verified 02/15/23 13:21) Medication List - Last Reconciled 02/15/23 by Vladimir Puentes MD albuterol sulfate 90 mcg/actuation (Ventolin HFA) 1 puff inhalation QID PRN atorvastatin 40 mg PO DAILY 90 days [bed wedge As directed] cetirizine 10 mg PO DAILY chair, wheel (Wheel chair) use daily as needed cholecalciferol (vitamin D3) 50 mcg PO DAILY diazepam 5 mg PO ONCE PRN 1 day ear thermometer As directed fluticasone furoate-vilanterol 100-25 mcg/dose (Breo Ellipta) 1 inh inhalation DAILY gabapentin 100 mg PO BEDTIME 30 days ipratropium-albuterol 0.5 mg-3 mg(2.5 mg base)/3 mL 3 mL inhalation QID ketoconazole 2% 1 appl topical DAILY 14 days magnesium citrate 75 mL PO DAILY PRN miscellaneous medical supply 1 ea miscellaneous DAILY 30 days pantoprazole 40 mg PO DAILY phenazopyridine (Pyridium) 100 mg PO TID PRN 4 days [rolling walker with seat and brakes As directed] tape thermometer (Forehead Thermometer) As directed tramadol 50 mg PO BID PRN 7 days umeclidinium 62.5 mcg/actuation (Incruse Ellipta) 1 inh inhalation DAILY HPI HPI Comments History of Present Illness Details Mert is a pleasant male. He is a patient Dr. Carroll. He seen for the following urologic conditions - superficial bladder cancer Telemedicine Evaluation 15 min Consultation [facility] [place] Video attempted Discussed pathology Plan cysto removal of stent in 3 weeks Superficial bladder cancer 02/05 TURBT Initial presentation abnormality noted on CT scan TURBT - 02/05 - required stent since lesion located on top of left ureteric orifice Pathology - T1 low-grade Has grade 2 trabeculations on initial cystoscopy Imaging - 01/06 CT scan 1.5 cm lesion on left UVJ, no evidence hydronephrosis, mildly enlarged prostatic gland Longstanding cigarette smoker [employer] Medical History Asthma Bilateral cataracts GERD (gastroesophageal reflux disease) High cholesterol Muscle pain Social History Housing: Apartment Patient Tobacco Use Status: Former Tobacco user Years Smoked: quit 2 years ago e-Cigarette/Vaping Use: Never Used Second Hand Smoke Exposure: No service: No Current occupational status: disabled Cognitive needs: No Hearing needs: No Vision needs: No Review of Systems Const All systems reviewed & are unremarkable except as noted in HPI and below Reports no additional complaints Resp Reports no additional complaints GI Reports no additional complaints Reports as per HPI Musc Reports no additional complaints Physical Exam Telemedicine evaluation Appropriate responses Regular breathing rate and rhythm HEENT Head: Yes normal to inspection Ears: hearing grossly normal bilaterally Eyes General: appearance normal, both eyes and all related structures Neck Neck: Yes normal visual inspection Chest Chest palpation & inspection: normal inspection of the chest Resp Effort & Inspection: normal respiratory effort and able to speak in complete sentences Assessment & Plan Assessment & Plan (1) Bladder cancer: Comment: 02/05 TURBT T1LG Code(s): C67.9 - Malignant neoplasm of bladder, unspecified Plan Three week follow-up office cystoscopy removal Patient Instructions: Imaging studies, laboratory and physical exam results were discussed and reviewed in detail. No major barriers to patient understanding were identified. An opportunity to ask questions regarding the treatment plan was provided. All questions were answered. The patient expressed understanding and agreement with the above treatment plan. The patient is aware they should contact our office by phone for worsening of their current condition or the appearance of new urologic symptoms. Compliance is encouraged with any medications and followup testing that is ordered. It is a privilege to participate in the urologic care of your patient. If you have any questions or concerns regarding treatment for the above conditions, or other urologic issues, please do not hesitate to contact me. The office telephone contact is [phone]. This note is constructed using voice recognition software. While every effort has been made to ensure accuracy tube cutter errors may have been included. Yours sincerely, Dr Vladimir Puentes MD, [facility] - Urology Providers of Expert, Compassionate Care for the Genitourinary System Telehealth Telehealth Location of provider rendering services: practice address Location of patient: address on file Patient Identification confirmed using: Name, : Yes Telehealth method: video Patient verbally consented to treatment: Yes Patient verbally consented to billing insurance company: Yes Patient informed of any privacy concerns related to visit: Yes Coding Level of Care Code Tele Est Pt Level 3 (94385) Diagnoses Bladder cancer C67.9
== END 2023-02-15 13:49 | disposition home or self-care (01) ==
LOC: HO.HUSH 13:18
PROVIDERS: PCP Nurse Practitioner Family; Visit Provider Urology
DX: C67.9 Malignant neoplasm of bladder, unspecified (principal)
CPT/HCPCS: 99213

== ENCOUNTER → 2023-02-15 13:18 | Outpatient (BNVA) | payer OTHER, SELFPAY | PROVIDERS: PCP Nurse Practitioner Family; Visit Provider Urology | DX: C67.9 Malignant neoplasm of bladder, unspecified (principal); Z87.891 Personal history of nicotine dependence | CPT/HCPCS: Q3014 ==

== ENCOUNTER 2023-02-17 11:22 | Outpatient (AMB) | payer OTHER, SELFPAY ==
[2023-02-17 11:41] VITALS: BP 114/62; PULSE 72; BMI 19.4
--- NOTE | 2023-02-17 11:41 | A.OFFVIS_ITS ---
Intake Vital Signs 02/17/23 11:41 Height 5 ft 11 in Weight 139 lb 5.314 oz BMI 19.4 BP 114/62 Blood Pressure Location Lt brachial Position Sitting Pulse 72 Intake Visit Reasons: colonoscopy screening Intake Note: Mert presents in office as a new.patient for a colonoscopy screening PT CC: pt reports having constipation pt denies any other GI Issues Stewarding Supervisor Required: No Accompanied by: Self / Same As Patient Allergies No Known Allergies [No Known Allergies*] Allergy (Verified 02/17/23 11:42) HPI colonoscopy screening HPI Details 67 year old? male with past medical history of chronic GERD, COPD, DDD, bladder CA status post TURP is here today for pre colonoscopy screening.? Patient was sent to us by his PCP.? Patient had colonoscopy in 2013 that showed no polyps, diverticulosis was found. Upper endoscopy was performed then and again in 2014. Patient does have trouble swallowing solids, okay drinking fluids.? Patient reports to have acid reflux despite taking pantoprazole daily. Patient also reports constipation. Denies any personal or family history of gastrointestinal disease, colon polyps, or cancer.? Denies history of difficulty with sedation or anesthesia in the past.? History of sleep apnea using CPAP. ? Denies any history of cardiac, renal, pulmonary, or hepatic disease.?? No history of infectious? diseases like hepatitis A, B, C, HIV or tuberculosis.? Patient is not on any anticoagulation therapy. [facility] Medical History Asthma Bilateral cataracts GERD (gastroesophageal reflux disease) High cholesterol Muscle pain Social History Housing: Apartment Patient Tobacco Use Status: Former Tobacco user Years Smoked: quit 2 years ago e-Cigarette/Vaping Use: Never Used Second Hand Smoke Exposure: No service: No Current occupational status: disabled Cognitive needs: No Hearing needs: No Vision needs: No Review of Systems Const Denies weight gain and Denies weight loss ENT Reports no additional complaints, Reports dysphagia (With solids) and Denies odynophagia Card Reports no additional complaints Resp Reports no additional complaints GI Denies abdominal pain, Denies belching, Denies melena, Denies bloating, Reports constipation, Reports dysphagia (With solids), Denies excessive flatus, Denies dyspepsia, Denies heartburn, Denies diarrhea, Denies loose stools, Denies nausea, Denies odynophagia and Denies vomiting Reports no additional complaints Musc Reports no additional complaints Neuro Reports no additional complaints Psych Reports no additional complaints Endo Reports no additional complaints Physical Exam Vital Signs: Last Vital Signs Pulse 72 02/17/23 11:41 BP 114/62 02/17/23 11:41 BMI result Body Mass Index 19.4 Const General: healthy appearing, no acute distress and well developed Nutritional Appearance: well nourished Orientation/consciousness: patient oriented x3 HEENT Head: Yes normal to inspection, Yes normocephalic and Yes atraumatic Face and sinus: Yes normal facial exam Mouth: Normal oral and palatal mucosa present Throat: Yes posterior oropharynx normal, Yes tonsils normal and Yes uvula mid line Eyes General: appearance normal, both eyes and all related structures Neck Neck: Yes normal visual inspection, Yes full ROM and Yes trachea midline Thyroid: Thyroid normal Resp Effort & Inspection: normal respiratory effort, able to speak in complete sentences, no tracheal deviation and symmetric chest movement Auscultation: clear to auscultation bilaterally Cardio Rate: regular rate Heart sounds: S1 normal heart sound present and S2 normal heart sound present GI Inspection: Yes normal to inspection and No distended Palpation (GI): Soft to palpation, not firm, nontender and No hepatosplenomegaly present Auscultation: normal bowel sounds General: Yes no CVA tenderness Back/Spine/Pelvis Back: no CVA tenderness Skin General skin exam: elasticity normal, turgor normal and dry skin Neuro General: patient oriented x3 Psych Appearance: grossly normal Mental Status: mental status grossly normal Speech and movement: Normal speech and movement present Affect: normal affect Assessment & Plan Assessment & Plan (1) Chronic GERD: Code(s): K21.9 - Gastro-esophageal reflux disease without esophagitis Plan: Patient reports acid reflux despite taking pantoprazole. He can start taking Nexium daily. Discussed with patient avoiding dietary triggers in late night snacking. Staying upright for minimal 3 hours after meals discussed with patient. (2) Screening for colon cancer: Code(s): Z12.11 - Encounter for screening for malignant neoplasm of colon Plan: Patient denies any GI, cardiac or respiratory symptoms.? Patient reports of symptoms of acid reflux as well as constipation. Denies any issues with anesthesia in the past.? Patient has a history of sleep apnea and using CPAP every night.? No history infectious diseases in the past or present.? Not on any anticoagulation therapy.? No family or personal history of colon cancer or polyps.? Patient denies melena, hematochezia, unintentional weight loss or ribbon like stools.? (3) Constipation: Code(s): K59.00 - Constipation, unspecified Qualifiers: Constipation type: other constipation type Qualified Code(s): K59.09 - Other constipation Plan: History of constipation will start patient on MiraLax in the morning and Senokot at bedtime. Patient will return in 4 weeks, sooner on as needed basis. He is agreeable to this plan and verbalizes understanding of instructions. He was given the opportunity to ask questions all questions answered. Thank you for allowing me to participate in his care Medications: New esomeprazole magnesium (Nexium) 40 mg PO DAILY 30 caps 5RF K21.9 - Gastro- esophageal reflux disease without esophagitis sennosides (Natural Senna Laxative) 8.6 mg PO BEDTIME 90 tabs 3RF constipation K59.00 - Constipation, unspecified polyethylene glycol 3350 (Miralax) 17 grams PO DAILY 510 grams 2RF Discontinued pantoprazole Discontinued Reason: Doctor's Order 40 mg PO DAILY 90 tabs 0RF K21.9 - Gastro-esophageal reflux disease without esophagitis Coding Level of Care Code New Pt Level 3 (21228) Diagnoses Chronic GERD K21.9 Screening for colon cancer Z12.11 Constipation K59.09 Constipation type: other constipation type Time Spent (min) 40 Comment 30 minutes spent with patient and additional 10 minutes spent reviewing his records
== END 2023-02-17 12:04 | disposition home or self-care (01) ==
PROVIDERS: PCP Nurse Practitioner Family; Visit Provider Nurse Practitioner Family
DX: K21.9 Gastro-esophageal reflux disease without esophagitis (principal); Z12.11 Encounter for screening for malignant neoplasm of colon; K59.09 Other constipation
CPT/HCPCS: 99203

== ENCOUNTER → 2023-02-17 11:22 | Outpatient (BNVA) | payer OTHER, SELFPAY | PROVIDERS: PCP Nurse Practitioner Family; Visit Provider Nurse Practitioner Family | DX: Z12.11 Encounter for screening for malignant neoplasm of colon (principal); K21.9 Gastro-esophageal reflux disease without esophagitis; K59.09 Other constipation | CPT/HCPCS: 99202 ==

== ENCOUNTER 2023-03-10 10:02 | Outpatient (AMB) | payer OTHER, SELFPAY ==
--- NOTE | 2023-03-10 10:33 | A.OFFVIS_ITS ---
Intake Intake Visit Reasons: 3w/cysto stent removal Allergies No Known Allergies [No Known Allergies*] Allergy (Verified 02/17/23 11:42) Medication List - Last Reconciled 03/10/23 by Vladimir Puentes MD albuterol sulfate 90 mcg/actuation (Ventolin HFA) 1 puff inhalation QID PRN atorvastatin 40 mg PO DAILY 90 days [bed wedge As directed] cetirizine 10 mg PO DAILY chair, wheel (Wheel chair) use daily as needed cholecalciferol (vitamin D3) 50 mcg PO DAILY diazepam 5 mg PO ONCE PRN 1 day ear thermometer As directed esomeprazole magnesium (Nexium) 40 mg PO DAILY fluticasone furoate-vilanterol 100-25 mcg/dose (Breo Ellipta) 1 inh inhalation DAILY gabapentin 100 mg PO BEDTIME 30 days ipratropium-albuterol 0.5 mg-3 mg(2.5 mg base)/3 mL 3 mL inhalation QID ketoconazole 2% 1 appl topical DAILY 14 days magnesium citrate 75 mL PO DAILY PRN miscellaneous medical supply 1 ea miscellaneous DAILY 30 days phenazopyridine (Pyridium) 100 mg PO TID PRN 4 days polyethylene glycol 3350 (Miralax) 17 grams PO DAILY [rolling walker with seat and brakes As directed] sennosides (Natural Senna Laxative) 8.6 mg PO BEDTIME tape thermometer (Forehead Thermometer) As directed tramadol 50 mg PO BID PRN 7 days umeclidinium 62.5 mcg/actuation (Incruse Ellipta) 1 inh inhalation DAILY HPI HPI Comments History of Present Illness Details Mert is a pleasant male. He is a patient Dr. Carroll. He seen for the following urologic conditions - superficial bladder cancer - nephrolithiasis Here for cystoscopy with stent removal Discussed pathology Plan for repeat cysto in 4 months Superficial bladder cancer 02/05 TURBT - required stent since close to ureteric orifice Initial presentation abnormality noted on CT scan TURBT - 02/05 - required stent since lesion located on top of left ureteric orifice Pathology - T1 low-grade Has grade 2 trabeculations on initial cystoscopy Imaging - 01/06 CT scan 1.5 cm lesion on left UVJ, no evidence hydronephrosis, mildly enlarged prostatic gland Longstanding cigarette smoker Nephrolithiasis Prior ESWL Surveillance [facility] Medical History Asthma Bilateral cataracts GERD (gastroesophageal reflux disease) High cholesterol Muscle pain Social History Housing: Apartment Patient Tobacco Use Status: Former Tobacco user Years Smoked: quit 2 years ago e-Cigarette/Vaping Use: Never Used Second Hand Smoke Exposure: No service: No Current occupational status: disabled Cognitive needs: No Hearing needs: No Vision needs: No Review of Systems Const Denies chills and Denies fever(s) Card Reports no additional complaints and Denies syncope Resp Denies cough GI Denies abdominal pain and Denies heartburn Reports as per HPI and Denies change in libido Neuro Denies syncope Psych Denies change in libido Endo Denies change in libido Physical Exam Const General: cooperative, healthy appearing, comfortable and no acute distress Orientation/consciousness: patient oriented x3 HEENT Face and sinus: Yes normal facial exam Mouth: moist mucous membranes Neck Neck: Yes normal visual inspection, Yes full ROM and Yes trachea midline Chest Chest palpation & inspection: normal inspection of the chest Resp Effort & Inspection: normal respiratory effort, able to speak in complete sentences and no respiratory distress GI Inspection: Yes normal to inspection Back/Spine/Pelvis Cervical Spine: normal cervical lordosis Thoracic/Lumbar Spine: thoracic and lumbar spine normal to inspection Skin General skin exam: no rashes or lesions noted Neuro General: patient oriented x3, gait normal, tone normal and moves all extremities Extrem General: Yes normal to inspection and Yes capillary refill normal Office Procedures Cystoscopy Consent Discussed risk and benefit or proposed procedure with the patient. Information consent for procedure given to the patient. Discussed technical aspects, risks, benefits and alternatives in full. Addressed all of the patient's questions and concerns regarding the procedure. The patient demonstrated knowledge and understanding. They wish to proceed with this procedure. Preparation The patient was prepped in the usual manner. A sand mill operator was present and in the room. Genitalia was prepped with betadine solution in a sterile manner. Lidocaine Jelly 2% was placed into the urethra and 16Fr flexible Olympus cystoscope was inserted into the meatus after adequate lubrication. Procedure A well lubricated 16 Japanese cystoscope was placed No abnormality noted of urethra during placement Indwelling stent seen within bladder emerging from right ureteric orifices The stent was grasped with a 3 prong grasper and removed without difficulty The patient tolerated the procedure well [id number] with stent removal DISPOSABLE SCOPE URO-G FLEXIBLE SCOPE Procedure code (CPT) selection complete Office Meds lidocaine HCl Performing Provider: Vladimir Puentes MD Administered by: Vladimir Puentes MD on 03/10/23 10:47 Dose Route Admin Location Lot Number Expiration Date NDC Care Navigator 10 mL intra-urethral Assessment & Plan Assessment & Plan (1) Nephrolithiasis: Code(s): N20.0 - Calculus of kidney (2) Bladder cancer: Comment: 02/05 TURBT T1LG Code(s): C67.9 - Malignant neoplasm of bladder, unspecified Plan Four month follow-up renal ultrasound and check cystoscopy Orders: Orders US renal BI 4 Months N20.0 - Calculus of kidney AMB Cystoscopy Today C67.9 - Malignant neoplasm of bladder, unspecified AMB Urinalysis Automated Today Z13.9 - Encounter for screening, unspecified Patient Instructions: Imaging studies, laboratory and physical exam results were discussed and reviewed in detail. No major barriers to patient understanding were identified. An opportunity to ask questions regarding the treatment plan was provided. All questions were answered. The patient expressed understanding and agreement with the above treatment plan. The patient is aware they should contact our office by phone for worsening of their current condition or the appearance of new urologic symptoms. Compliance is encouraged with any medications and followup testing that is ordered. It is a privilege to participate in the urologic care of your patient. If you have any questions or concerns regarding treatment for the above conditions, or other urologic issues, please do not hesitate to contact me. The office telephone contact is [phone]. This note is constructed using voice recognition software. While every effort has been made to ensure accuracy wood bucker errors may have been included. Yours sincerely, Dr Vladimir Puentes MD, [facility] - Urology Providers of Expert, Compassionate Care for the Genitourinary System Coding Level of Care Code Est Pt Level 3 (80240) Diagnoses Nephrolithiasis N20.0 Bladder cancer C67.9 CPT Codes Cystoscopy - CPT: 18744-Uabptpvjgq with stent removal ([id number]) Cystoscopy - CPT: DISPOSABLE SCOPE URO-G FLEXIBLE SCOPE ([id number])
== END 2023-03-10 10:47 | disposition home or self-care (01) ==
PROVIDERS: PCP Nurse Practitioner Family; Visit Provider Urology
DX: N20.0 Calculus of kidney (principal); C67.9 Malignant neoplasm of bladder, unspecified
CPT/HCPCS: 52310; 99213

== ENCOUNTER → 2023-03-10 10:02 | Outpatient (BNVA) | payer OTHER, SELFPAY | PROVIDERS: PCP Nurse Practitioner Family; Visit Provider Urology | DX: Z48.3 Aftercare following surgery for neoplasm (principal); C67.9 Malignant neoplasm of bladder, unspecified | CPT/HCPCS: 52310; 81003; 99212; C1747 ==

== ENCOUNTER 2023-05-03 11:08 | Outpatient (AMB) | payer OTHER, SELFPAY ==
--- NOTE | 2023-05-03 11:12 | MHC.PC.OV ---
Vital Signs 05/03/23 11:16 Height 5 ft 11 in Weight 140 lb BMI 19.5 BP 104/58 L Blood Pressure Location Rt brachial Position Sitting Pulse 72 Pulse Source Pulse Oximeter Pulse Oximetry (%) 98 Oxygen Delivery Method Room Air Intake Visit Reasons: Annual PE Allergies No Known Allergies [No Known Allergies*] Allergy (Verified 05/03/23 12:14) Medication List - Last Reconciled 05/03/23 by Fernando Esparza, CALENDER SUPERVISOR- albuterol sulfate 90 mcg/actuation (Ventolin HFA) 1 puff inhalation QID PRN atorvastatin 40 mg PO DAILY 90 days [bed wedge As directed] cetirizine 10 mg PO DAILY chair, wheel (Wheel chair) use daily as needed cholecalciferol (vitamin D3) 50 mcg PO DAILY clotrimazole-betamethasone 1-0.05 % 1 appl topical BID 2 weeks diazepam 5 mg PO ONCE PRN 1 day ear thermometer As directed esomeprazole magnesium 40 mg PO DAILY esomeprazole magnesium (Nexium) 40 mg PO DAILY fluticasone furoate-vilanterol 100-25 mcg/dose (Breo Ellipta) 1 inh inhalation DAILY gabapentin 100 mg PO BEDTIME 30 days ipratropium-albuterol 0.5 mg-3 mg(2.5 mg base)/3 mL 3 mL inhalation QID ketoconazole 2% 1 appl topical DAILY 14 days magnesium citrate 75 mL PO DAILY PRN miscellaneous medical supply 1 ea miscellaneous DAILY 30 days phenazopyridine (Pyridium) 100 mg PO TID PRN 4 days polyethylene glycol 3350 (Miralax) 17 grams PO DAILY [rolling walker with seat and brakes As directed] sennosides (Natural Senna Laxative) 8.6 mg PO BEDTIME tape thermometer (Forehead Thermometer) As directed tramadol 50 mg PO BID PRN 7 days umeclidinium 62.5 mcg/actuation (Incruse Ellipta) 1 inh inhalation DAILY Tobacco use date assessed: 12/28/22 Fall risk assessment: No Falls in past year Last assessed Fall Risk: 05/03/23 Dental Screening Dental Screen Date: 05/03/23 Did you have a dental visit in the last 12 months?: No Did you have a dental problem in the last 6 months where you did not have access to dental care?: No Was dental information given to patient?: No HPI Annual PE HPI Details Pt is here for a PE. Labs have already been ordered. PSA is up to date, sees urology for bladder carcinoma and kidney stones. Pt reports dysphagia. He will be seeing GI for this. Pt will be having a colonoscopy/endoscopy. Pt reports a mole to his left upper back. He states that this gets caught on things and bleeds. Will refer to derm. Pt also follows up with pulmonology. [facility] Medical History (Updated 05/03/23 @ 12:20 by Fernando Esparza [facility]) Bilateral cataracts Muscle pain High cholesterol Asthma GERD (gastroesophageal reflux disease) Surgical History Hx of cystoscopy Social History Housing: Apartment Patient Tobacco Use Status: Former Tobacco user Years Smoked: quit 2 years ago e-Cigarette/Vaping Use: Never Used Second Hand Smoke Exposure: No service: No Current occupational status: disabled Cognitive needs: No Hearing needs: No Vision needs: No Questionnaire Thrive Questionnaire Date Thrive assessed: 08/23/21 HAN-7 AMB Questionnaire HAN-7 Date HAN - 7 assessed: 08/23/21 Source: Developed by Drs. Luis Byrd, Siobhan Hughes, Rene Ge and colleagues, with an educational marycarmen from [employer]. Review of Systems Const Denies chills and Denies fever(s) Eyes Denies blurry vision ENT Denies vertigo, Denies dizziness and Denies sore throat Card Denies chest pain at rest, Denies chest pain with activity, Denies diaphoresis, Denies dyspnea and Denies dyspnea on exertion Resp Denies cough, Denies dyspnea, Denies dyspnea on exertion and Denies wheezing GI Denies abdominal pain, Denies melena, Denies hematochezia, Denies constipation, Denies diarrhea and Denies loose stools Denies hematuria Musc Denies numbness and Denies tingling Skin/Breast Denies lesions Neuro Denies vertigo, Denies dizziness, Denies numbness and Denies tingling Psych Denies anxiety, Denies depression, Denies homicidal ideation, Denies suicidal ideation and Denies other (substance abuse) Aller/Immun Denies wheezing Physical exam (Primary Care) Vital Signs: Last Vital Signs Pulse 72 05/03/23 11:16 BP 104/58 L 05/03/23 11:16 Pulse Ox 98 05/03/23 11:16 Oxygen Delivery Method Room Air 05/03/23 11:16 BMI result Body Mass Index 19.5 Tobacco/Smoking Status: Tobacco use Status Tobacco use date assessed 12/28/22 05/03/23 11:15 Patient Tobacco Use Status Former Tobacco user 05/03/23 11:15 e-Cigarette/Vaping Use Never Used 05/03/23 11:15 Thrive Assessment: Date of Thrive Assessment Date Thrive assessed 08/23/21 05/03/23 11:15 Const General: cooperative Nutritional Appearance: well nourished Orientation/consciousness: patient oriented x3 HENMT Other: cerumen noted to left ear, after ear lavage TM easily seen, though residual cerumen noted. Head: Yes normal to inspection, Yes normocephalic and Yes atraumatic Ears: TM normal on the right Eyes General: appearance normal, both eyes and all related structures Alignment and Position: alignment normal and position normal Neck Neck: Yes normal visual inspection and Yes no lymphadenopathy Thyroid: Thyroid normal Resp Effort & Inspection: normal respiratory effort Auscultation: clear to auscultation bilaterally Cardio Rate: regular rate Rhythm: regular rhythm Heart sounds: S1 normal heart sound present, S2 normal heart sound present and no murmurs GI Palpation (GI): Soft to palpation and nontender Auscultation: normal bowel sounds Male General Exam: Yes normal external exam Penis: normal penis Scrotum: scrotum normal, testes descended bilaterally and no inguinal hernias Testes: no testicular mass Skin Other: left upper back with papular skin colored mole, macular though slightly raises, dry appearing, circular scabbed lesions to scalp. gluteal crease with faitn erythema, macular, dry (appears tinea) Rashes: no rashes Neuro General: patient oriented x3, moves all extremities, no focal motor deficits and deep tendon reflexes 2+ bilaterally Romberg Test: Negative Psych Appearance: grossly normal Mental Status: mental status grossly normal Speech and movement: Normal speech and movement present Affect: normal affect Attitude: cooperative Thought process: Normal thought process present Thought content: Normal thought content present Insight: Good insight present (Psych) Judgement: Good judgement present (Psych) Office Procedures Cerumen Removal From which ear canal was the cerumen removed: left Removal: irrigation Notes: patient tolerated procedure well [id number] Irrigation/Lavage Immunizations pneumoc 20-cuba conj-dip cr(PF) 0.5 mL IM syringe Performing Provider: DEVANTE Jeronimo Performing Location: [facility] Administered by: Sherrell Mccann CMA on 05/03/23 12:11 Dose Route Admin Location Dispensed Lot Number Expiration Date NDC Health Lead 0.5 mL IM Left Deltoid 0.5 mL [id number] 05/16/24 0656-6053-14 Oscar/Shwrüm VIS Given Date VIS Provided VIS Publication Date 05/03/23 Single Vaccine 21 Eligibility Eligibility Date Funding Source Not [facility] Eligible 05/03/23 Private Assessment and Plan Assessment & Plan (1) Skin lesion: Code(s): L98.9 - Disorder of the skin and subcutaneous tissue, unspecified (2) Cerumen impaction: Code(s): H61.20 - Impacted cerumen, unspecified ear (3) Physical exam: Code(s): Z00.00 - Encounter for general adult medical examination without abnormal findings (4) Tinea: Code(s): B35.9 - Dermatophytosis, unspecified Plan The patient agreed to the use of a medical office manager for this encounter. Scribed for DEVANTE Siddiqi by Gris Villafana medical office manager, on 05/03/2023 at 11:35 EST Orders: Orders Pneumococcal 20 Immunization Today Z23 - Encounter for immunization Referrals Dermatology Referral L98.9 - Disorder of the skin and subcutaneous tissue, unspecified Medications: New clotrimazole-betamethasone 1-0.05 % 1 appl topical BID 2 weeks 15 grams 0RF Discontinued ketoconazole 2% Discontinued Reason: Duplicate 1 appl topical DAILY 14 days 30 grams 0RF Coding Level of Care Code Est Pt Prev Care >65y(16347) Diagnoses Skin lesion L98.9 Cerumen impaction H61.20 Physical exam Z00.00 Tinea B35.9 CPT Codes Office Procedure - CPT: 20176-Wki Irrigation/Lavage ([id number])
[2023-05-03 11:16] VITALS: BP 104/58; PULSE 72; O2SAT 98; BMI 19.5
== END 2023-05-03 12:12 | disposition home or self-care (01) ==
PROVIDERS: PCP Nurse Practitioner Family; Visit Provider Nurse Practitioner Family
DX: Z00.00 Encounter for general adult medical examination without abnormal findings (principal); L98.9 Disorder of the skin and subcutaneous tissue, unspecified; H61.22 Impacted cerumen, left ear; B35.9 Dermatophytosis, unspecified; Z23 Encounter for immunization
CPT/HCPCS: 69209; 90471; 90677; 99397

== ENCOUNTER 2023-08-02 09:12 | Outpatient (REF) | payer OTHER, SELFPAY ==
--- NOTE | ~2023-08-02 | US_ITS ---
EXAMINATION: US RETROPERITONEAL LIMITED (RENAL ONLY) CLINICAL INFORMATION: Calculus of kidney. COMPARISON: CT abdomen and pelvis with contrast 12/14/2022. Renal ultrasound 10/07/2014 and 12/25/2013. TECHNIQUE: Real-time imaging of the kidneys. FINDINGS: RIGHT KIDNEY: 11.7 x 5.0 x 5.4 cm (SAG x AP x TRV). The kidney is normal in size, contour, and echogenicity. Renal cortical thickness is normal. No definite renal calculi or hydronephrosis. There are echogenic foci which do not meet formal ultrasound criteria for calculi. Multiple simple parapelvic cysts are seen. At the upper pole, an 8 mm benign, simple cyst is seen. These require no imaging follow-up. LEFT KIDNEY: 11.5 x 4.9 x 5.5 cm (SAG x AP x TRV). The kidney is normal in size, contour, and echogenicity. Renal cortical thickness is normal. No hydronephrosis. At the interpolar aspect, a 4 mm nonobstructing calculus is seen. At the upper pole, a 1.6 cm benign, simple cyst is seen. At the lower pole, a 1.6 cm benign, simple cyst is seen. These require no imaging follow-up. US/US renal BI IMPRESSION: 4 mm nonobstructing left renal calculus is seen. No right renal calculus is seen. No hydronephrosis is noted bilaterally.
== END 2023-08-02 09:13 | disposition home or self-care (01) ==
LOC: HO.HMGCX 09:12
PROVIDERS: PCP Nurse Practitioner Family; Visit Provider Urology
DX: N20.0 Calculus of kidney (principal)
CPT/HCPCS: 76775

== ENCOUNTER 2023-08-17 10:17 | Outpatient (AMB) | payer OTHER, SELFPAY ==
--- NOTE | 2023-08-17 10:19 | MHC.PC.OV ---
Vital Signs 08/17/23 10:21 Height 5 ft 11 in Weight 143 lb BMI 19.9 BP 110/70 Blood Pressure Location Lt brachial Position Sitting Pulse 66 Pulse Source Pulse Oximeter Pulse Oximetry (%) 94 Oxygen Delivery Method Room Air Intake Visit Reasons: 3-4 month Intake Note: Pt to follow up for lipids Allergies No Known Allergies [No Known Allergies*] Allergy (Verified 08/17/23 10:23) Tobacco use date assessed: 08/17/23 Fall risk assessment: 1 Fall in past year Last assessed Fall Risk: 08/17/23 Dental Screening Dental Screen Date: 08/17/23 Did you have a dental visit in the last 12 months?: No Did you have a dental problem in the last 6 months where you did not have access to dental care?: No Was dental information given to patient?: No HPI 3-4 month HPI Details Dyslipidemia: On atorvastatin 40mg. Labs have been ordered, encouraged pt to have these drawn. Denies chest pain, increased shortness of breath, and dizziness. Pt is following up with urology due to bladder cancer and kidney stones. He has an upcoming cystoscopy. [facility] Medical History DDD (degenerative disc disease), lumbar COPD (chronic obstructive pulmonary disease) Renal calculi Bladder cancer Bilateral cataracts Muscle pain High cholesterol Asthma GERD (gastroesophageal reflux disease) Surgical History History of testicular surgery Hx of lithotripsy History of esophagogastroduodenoscopy (EGD) H/O colonoscopy Hx of cystoscopy Social History Housing: Apartment Patient Tobacco Use Status: Former Tobacco user Years Smoked: quit 2 years ago e-Cigarette/Vaping Use: Never Used Second Hand Smoke Exposure: No service: No Current occupational status: disabled Cognitive needs: No Hearing needs: No Vision needs: No Questionnaire Thrive Questionnaire Date Thrive assessed: 08/23/21 AUDIT C Alcohol Use Questionnaire (AUDIT-C) 1. How often do you have a drink containing alcohol?: Never Total Score: 0 HAN-7 AMB Questionnaire HAN-7 Date HAN - 7 assessed: 02/07/22 Source: Developed by Drs. Luis Byrd, Siobhan Hughes, Rene Ge and colleagues, with an educational marycarmen from [employer]. Review of Systems Const Reports as per HPI Physical exam (Primary Care) Vital Signs: Last Vital Signs Pulse 66 08/17/23 10:21 BP 110/70 08/17/23 10:21 Pulse Ox 94 08/17/23 10:21 Oxygen Delivery Method Room Air 08/17/23 10:21 BMI result Body Mass Index 19.9 Tobacco/Smoking Status: Tobacco use Status Tobacco use date assessed 08/17/23 08/17/23 10:31 Patient Tobacco Use Status Former Tobacco user 08/17/23 10:19 e-Cigarette/Vaping Use Never Used 08/17/23 10:19 Thrive Assessment: Date of Thrive Assessment Date Thrive assessed 08/23/21 08/17/23 10:19 Const General: cooperative Orientation/consciousness: patient oriented x3 Resp Other: lungs diminished though moving air Effort & Inspection: normal respiratory effort Cardio Rate: regular rate Rhythm: regular rhythm Heart sounds: S1 normal heart sound present and S2 normal heart sound present Neuro General: patient oriented x3 Psych Appearance: grossly normal Mental Status: mental status grossly normal Speech and movement: Normal speech and movement present Affect: normal affect Attitude: cooperative Thought process: Normal thought process present Thought content: Normal thought content present Insight: Good insight present (Psych) Judgement: Good judgement present (Psych) Assessment and Plan Assessment & Plan (1) Bladder cancer: Comment: 02/05 TURBT T1LG Code(s): C67.9 - Malignant neoplasm of bladder, unspecified (2) Dyslipidemia: Code(s): E78.5 - Hyperlipidemia, unspecified Plan The patient agreed to the use of a medical concierge for this encounter. Scribed for JAMI Siddiqi- by Gris Villafana medical concierge, on 08/17/2023 at 10:40 EST. Coding Level of Care Code Est Pt Level 3 (72720) Diagnoses Bladder cancer C67.9 Dyslipidemia E78.5
[2023-08-17 10:21] VITALS: BP 110/70; PULSE 66; O2SAT 94; BMI 19.9
== END 2023-08-17 13:37 | disposition home or self-care (01) ==
PROVIDERS: PCP Nurse Practitioner Family; Visit Provider Nurse Practitioner Family
DX: E78.5 Hyperlipidemia, unspecified (principal); C67.9 Malignant neoplasm of bladder, unspecified
CPT/HCPCS: 99213

== ENCOUNTER 2023-09-12 15:15 | Outpatient (AMB) | payer OTHER, SELFPAY ==
--- NOTE | 2023-09-12 15:19 | A.OFFVIS_ITS ---
Intake Intake Visit Reasons: H&P Cysto In OR Intake Note: Patient is Present for Telephone H&P Urology Med: None Antibiotic Allergy: None Blood Thinner: None Allergies No Known Allergies [No Known Allergies*] Allergy (Verified 08/17/23 10:23) HPI HPI Comments History of Present Illness Details Mert is a pleasant male. He is a patient Dr. Carroll. He seen for the following urologic conditions - superficial bladder cancer - nephrolithiasis Can not tolerate cystoscopy in office Plan for inpatient cystoscopy with possible bladder biopsy Superficial bladder cancer 02/05 TURBT - required stent since close to ureteric orifice Initial presentation abnormality noted on CT scan TURBT - 02/05 - required stent since lesion loc ated on top of left ureteric orifice Pathology - T1 low-grade Has grade 2 trabeculations on initial cystoscopy Imaging - 01/06 CT scan 1.5 cm lesion on left UVJ, no evidence hydronephrosis, mildly enlarged prostatic gland Longstanding cigarette smoker Nephrolithiasis Prior ESWL Surveillance PFSH Medical History DDD (degenerative disc disease), lumbar COPD (chronic obstructive pulmonary disease) Renal calculi Bladder cancer Bilateral cataracts Muscle pain High cholesterol Asthma GERD (gastroesophageal reflux disease) Surgical History History of testicular surgery Hx of lithotripsy History of esophagogastroduodenoscopy (EGD) H/O colonoscopy Hx of cystoscopy Social History Housing: Apartment Patient Tobacco Use Status: Former Tobacco user Years Smoked: quit 2 years ago e-Cigarette/Vaping Use: Never Used Second Hand Smoke Exposure: No service: No Current occupational status: disabled Cognitive needs: No Hearing needs: No Vision needs: No Review of Systems Const Denies chills and Denies fever(s) Card Reports no additional complaints and Denies syncope Resp Denies cough GI Denies abdominal pain and Denies heartburn Reports as per HPI and Denies change in libido Neuro Denies syncope Psych Denies change in libido Endo Denies change in libido Physical Exam Const General: cooperative, healthy appearing, comfortable and no acute distress Orientation/consciousness: patient oriented x3 HEENT Face and sinus: Yes normal facial exam Mouth: moist mucous membranes Neck Neck: Yes normal visual inspection, Yes full ROM and Yes trachea midline Chest Chest palpation & inspection: normal inspection of the chest Resp Effort & Inspection: normal respiratory effort, able to speak in complete sentences and no respiratory distress GI Inspection: Yes normal to inspection Back/Spine/Pelvis Cervical Spine: normal cervical lordosis Thoracic/Lumbar Spine: thoracic and lumbar spine normal to inspection Skin General skin exam: no rashes or lesions noted Neuro General: patient oriented x3, gait normal, tone normal and moves all extremities Extrem General: Yes normal to inspection and Yes capillary refill normal Assessment & Plan Assessment & Plan (1) Nephrolithiasis: Code(s): N20.0 - Calculus of kidney (2) Bladder cancer: Comment: 02/05 TURBT T1LG Code(s): C67.9 - Malignant neoplasm of bladder, unspecified Plan Risks, benefits and alternatives to therapy were discussed. These include but are not limited to infection, bleeding, damage to local organs and tissues, need for further interventions. Anesthetic risks regarding cardiac arrhythmia, blood clots, and potential mortality were discussed. The patient understands the typical recovery time and the outpatient nature of the procedure. After consideration of these risks the patient gives full informed consent and they wish to move ahead with the procedure. Cystoscopy - possible bladder biopsy Patient Instructions: Imaging studies, laboratory and physical exam results were discussed and reviewed in detail. No major barriers to patient understanding were identified. An opportunity to ask questions regarding the treatment plan was provided. All questions were answered. The patient expressed understanding and agreement with the above treatment plan. The patient is aware they should contact our office by phone for worsening of their current condition or the appearance of new urologic symptoms. Compliance is encouraged with any medications and followup testing that is ordered. It is a privilege to participate in the urologic care of your patient. If you have any questions or concerns regarding treatment for the above conditions, or other urologic issues, please do not hesitate to contact me. The office telephone contact is [phone]. This note is constructed using voice recognition software. While every effort has been made to ensure accuracy healthcare management consultant errors may have been included. Yours sincerely, Dr Vladimir Puentes MD, [facility] - Urology Providers of Expert, Compassionate Care for the Genitourinary System Telehealth Telehealth Location of provider rendering services: practice address Location of patient: address on file Patient Identification confirmed using: Name, : Yes Telehealth method: video Patient verbally consented to treatment: Yes Patient verbally consented to billing insurance company: Yes Patient informed of any privacy concerns related to visit: Yes Coding Level of Care Code Est Pt Level 3 (80788) Diagnoses Nephrolithiasis N20.0 Bladder cancer C67.9
== END 2023-09-12 16:08 | disposition home or self-care (01) ==
LOC: HO.HUSH 15:15
PROVIDERS: PCP Nurse Practitioner Family; Visit Provider Urology
DX: N20.0 Calculus of kidney (principal); C67.9 Malignant neoplasm of bladder, unspecified
CPT/HCPCS: 99213

== ENCOUNTER → 2023-09-12 15:15 | Outpatient (BNVA) | payer OTHER, SELFPAY | PROVIDERS: PCP Nurse Practitioner Family; Visit Provider Urology | DX: N20.0 Calculus of kidney (principal); C67.9 Malignant neoplasm of bladder, unspecified | CPT/HCPCS: 99212 ==

== ENCOUNTER 2023-11-20 06:03 | Day surgery (SDC) | payer OTHER, SELFPAY ==
--- NOTE | 2023-11-17 09:53 | P.CONAN_ITS ---
Documented by User: Haley Lange NP 11/17/23 09:56 HPI - Anesthesia Eval Consult details Narrative: 68yo M for Cystoscopy Follows pulmo for COPD/Asthma. PMFSH Active Problems Active Problems: All Active Problems Dyslipidemia (Acute) Tinea (Acute) Cerumen impaction (Acute) Skin lesion (Acute) Nephrolithiasis (Acute) Bladder cancer (Acute) Bladder neoplasm of uncertain malignant potential (Acute) Abdominal pain (Acute) Hematemesis (Acute) Complaint of melena (Acute) Carpal tunnel syndrome of right wrist (Acute) Numbness of right hand (Acute) Abnormal MRI scan, arm (Acute) Right elbow pain (Acute) Right forearm pain (Acute) Right wrist pain (Acute) Screening for colon cancer (Acute) Screening PSA (prostate specific antigen) (Acute) Physical exam (Acute) DDD (degenerative disc disease), lumbar (Acute) Low back pain radiating to both legs (Acute) Pseudofolliculitis (Acute) Abscess (Acute) Hand injury (Acute) COPD (chronic obstructive pulmonary disease) (Acute) Unilateral primary osteoarthritis, right knee (Acute) Chronic GERD (Acute) History of smoking (Acute) Bronchitis with chronic airway obstruction (Acute) Acute asthma (Acute) High cholesterol (Acute) Past Medical History Medical History DDD (degenerative disc disease), lumbar COPD (chronic obstructive pulmonary disease) Renal calculi Bladder cancer Bilateral cataracts Muscle pain High cholesterol Asthma GERD (gastroesophageal reflux disease) Family History Family history of problems with anesthesia: No Surgical History Surgical History History of carpal tunnel release History of testicular surgery Hx of lithotripsy History of esophagogastroduodenoscopy (EGD) H/O colonoscopy Hx of cystoscopy History of Problems with Anesthesia: No Social History Social History Housing: Apartment Patient Tobacco Use Status: Former Tobacco user Quit Date: 5 yrs ago Years Smoked: quit 2 years ago e-Cigarette/Vaping Use: Never Used Second Hand Smoke Exposure: No Use of substances other than those prescribed or required for medical reasons: Yes Substance Use Frequency: Occasionally Are you DNR?: No Advance Directives: No Advance Directives Information Provided: Yes service: No Current occupational status: disabled Cognitive needs: No Hearing needs: No Vision needs: No Meds Allergies Allergy/AdvReac Type Severity Reaction Status Date / Time No Known Allergies Allergy Verified 11/20/23 06:17 [No Known Allergies*] Home Medications ?Medication ?Instructions ?Recorded ?Confirmed ?Last Taken ?Type umeclidinium 62.5 mcg/actuation 1 inh inhalation DAILY 08/23/21 11/20/23 Unknown History blister powder for inhalation (Incruse Ellipta) esomeprazole magnesium 40 mg 40 mg PO DAILY 05/03/23 11/20/23 Unknown History capsule,delayed release Assessment and Plan Assessment Anesthesia Assessment: Chart Reviewed Final Anesthetic Review Family History of Problems with Anesthesia: No History of Problems with Anesthesia: No Documented by User: Jeannette Martin MD 11/20/23 07:35 [facility] Past Medical History Medical History DDD (degenerative disc disease), lumbar COPD (chronic obstructive pulmonary disease) Renal calculi Bladder cancer Bilateral cataracts Muscle pain High cholesterol Asthma GERD (gastroesophageal reflux disease) Surgical History Surgical History History of carpal tunnel release History of testicular surgery Hx of lithotripsy History of esophagogastroduodenoscopy (EGD) H/O colonoscopy Hx of cystoscopy Social History Social History Housing: Apartment Patient Tobacco Use Status: Former Tobacco user Quit Date: 5 yrs ago Years Smoked: quit 2 years ago e-Cigarette/Vaping Use: Never Used Second Hand Smoke Exposure: No Use of substances other than those prescribed or required for medical reasons: Yes Substance Use Frequency: Occasionally Are you DNR?: No Advance Directives: No Advance Directives Information Provided: Yes service: No Current occupational status: disabled Cognitive needs: No Hearing needs: No Vision needs: No Meds Allergies Allergy/AdvReac Type Severity Reaction Status Date / Time No Known Allergies Allergy Verified 11/20/23 06:17 [No Known Allergies*] Home Medications ?Medication ?Instructions ?Recorded ?Confirmed ?Last Taken ?Type umeclidinium 62.5 mcg/actuation 1 inh inhalation DAILY 08/23/21 11/20/23 Unknown History blister powder for inhalation (Incruse Ellipta) esomeprazole magnesium 40 mg 40 mg PO DAILY 05/03/23 11/20/23 Unknown History capsule,delayed release Exam Airway Mallampati Class: II (edentulous) TM Dist: >3cm Neck ROM: Full Loose/Missing/Broken Teeth: Yes, Upper and Lower Heart: RRR Lungs: CTA Assessment and Plan Assessment Anesthesia Assessment: Anesthesia Plan Discussed Final Anesthetic Review NPO: Yes ASA Class: III Final Preanesthetic Review: Meds/Allgs Chart Reviewed, Consent Obtained/Reviewed and Anes Risks/Benef Reviewed Patient Risk: Intermediate Procedure Risk: Low Anesthetic Plan Anesthetic Plan: MAC: Disposition: Standard PACU
[2023-11-20] VITALS (7 sets, daily range): BP systolic 93–131; BP diastolic 55–82; PULSE 56–74; RESP 16–17; TEMP 36.4–36.7; O2SAT 98–100; BMI 19.7
[2023-11-20] MEDS: Lactated Ringers 1,000 ML 100 ML IVCONT (06:41)
[2023-11-20] MEDS: levoFLOXacin 500 MG TABLET PO (07:52)
--- NOTE | 2023-11-20 07:52 | MHC.SHP ---
Pre-Procedural Eval Section A - 24 Hr Update-Section A only Date of Service: 11/20/23 The patient is an INPATIENT: No Changes since office visit: No Cold of Flu in the past 2 weeks, No New Medical Problems, No Changes in Medication and No Patient answered all questions The patient has been examined within 24 hours of the surgical procedure. The History & Physical has been completed within 30 days and I have reviewed it.: No Section B - Complete if H&P > 30 days Chief Complaint: Malignant neoplasm of bladder, unspecified Relevant Family History (Specify if Yes): No Relevant Social History: Tobacco Use Present Medications: see Short Stay Collaborative assessment Medical History: No relevant PMH History of Previous Operations: Relevant previous surgery/procedure and date(s) Allergies: Allergies Allergy/AdvReac Type Severity Reaction Status Date / Time No Known Allergies Allergy Verified 11/20/23 06:17 [No Known Allergies*] Review of Systems Sugical H&P ROS: Negative: Constitution, Cardiovascular, Respiratory, Neurological, Psychiatric, Hem-Onc, Allergic/Immunologic, Gastrointestinal, Genitourinary, Musculoskeletal, Integumentary, Endocrine and Eyes/Ears/Nose/Throat Exam Surgical H&P Exam: Normal: HEENT, Normal: Heart, Normal: Lungs, Normal: Extremities, Normal: Abdomen, Normal: Skin and Normal: Neurological Plan Diagnosis/Plan: Unchanged (cysto in OR) I have reviewed the history and physical and performed a pertinent physical examination on my patient. No changes have occurred unless specified. Time Spent With Patient Time: Total time managing care of this patient today ____ minutes.
--- NOTE | 2023-11-20 08:06 | W.PM.OPN ---
Operative Note Operative Note Date of Service: 11/20/23 Narrative: PreOperative Diagnosis: Superficial bladder cancer Post Operative Diagnosis: Superficial bladder cancer Procedure: Cystoscopy Surgeon: Dr Vladimir Puentes Anesthesia: None Indications for procedure: Superficial bladder cancer 02/05 Procedure: Cystoscopy performed using a disposable Urovue digital 16 [place] cystoscope. Meatus circumcised Urethra anterior and posterior urethra normal Prostatic Urethra unremarkable Bladder examination with retroflexion of cystoscope Bladder Orifices normal shape and position Bladder Capacity normal Trabeculations grade 1 Cellule Formation none Diverticulum Formation none Mucosal Erythema injected vascularity consistent with mild IC Bladder Tumor none
== END 2023-11-20 09:18 | disposition home or self-care (01) ==
PROVIDERS: PCP Nurse Practitioner Family; Visit Provider Urology
PROC: 0TJB8ZZ Inspection of Bladder, Via Natural or Artificial Opening Endoscopic (ICD-10-PCS; CPT 52000; principal; 2023-11-20 07:30)
DX: C67.9 Malignant neoplasm of bladder, unspecified (principal); J44.9 Chronic obstructive pulmonary disease, unspecified; E78.00 Pure hypercholesterolemia, unspecified; K21.9 Gastro-esophageal reflux disease without esophagitis; G47.33 Obstructive sleep apnea (adult) (pediatric); Z87.442 Personal history of urinary calculi; Z79.51 Long term (current) use of inhaled steroids; Z79.899 Other long term (current) drug therapy; Z98.890 Other specified postprocedural states; Z87.891 Personal history of nicotine dependence
CPT/HCPCS: 52000; J2250; J2405; J2704; J3010

== ENCOUNTER → 2023-11-20 06:03 | Outpatient (BNV) | payer OTHER, SELFPAY | PROVIDERS: PCP Nurse Practitioner Family; Visit Provider Urology | DX: C67.9 Malignant neoplasm of bladder, unspecified (principal); N30.10 Interstitial cystitis (chronic) without hematuria | CPT/HCPCS: 52000 ==

== ENCOUNTER 2023-12-06 10:50 | Outpatient (AMB) | payer OTHER, SELFPAY ==
--- NOTE | 2023-12-06 10:53 | A.OFFVIS_ITS ---
Intake Visit Reasons: OR Cysto follow up Intake Note: Patient is Present for Telephone Cysto f/u Urology Med: None Antibiotic Allergy: None Blood Thinner: None Distribution Superintendent Required: No Accompanied by: Self / Same As Patient Allergies No Known Allergies [No Known Allergies*] Allergy (Verified 12/06/23 10:53) HPI Comments Details: Mert is a pleasant male. He is a patient Dr. Carroll. He seen for the following urologic conditions - superficial bladder cancer - nephrolithiasis Telemedicine Evaluation 15 min Consultation Co-Work Stuart Video attempted Cystoscopy with no evidence of disease Repeat in 6 months Superficial bladder cancer 02/05 TURBT - required stent since close to ureteric orifice Initial presentation abnormality noted on CT scan TURBT - 02/05 - required stent since lesion located on top of left ureteric orifice Pathology - T1 low-grade Has grade 2 trabeculations on initial cystoscopy Imaging - 01/06 CT scan 1.5 cm lesion on left UVJ, no evidence hydronephrosis, mildly enlarged prostatic gland Longstanding cigarette smoker Nephrolithiasis Prior ESWL Surveillance [facility] Medical History DDD (degenerative disc disease), lumbar COPD (chronic obstructive pulmonary disease) Renal calculi Bladder cancer Bilateral cataracts Muscle pain High cholesterol Asthma GERD (gastroesophageal reflux disease) Surgical History History of carpal tunnel release History of testicular surgery Hx of lithotripsy History of esophagogastroduodenoscopy (EGD) H/O colonoscopy Hx of cystoscopy Social History Housing: Apartment Patient Tobacco Use Status: Former Tobacco user Quit Date: 5 yrs ago Years Smoked: quit 2 years ago e-Cigarette/Vaping Use: Never Used Second Hand Smoke Exposure: No service: No Current occupational status: disabled Cognitive needs: No Hearing needs: No Vision needs: No Telehealth Telehealth [facility]health [facility] Location of provider rendering services: practice address Location of patient: address on file Patient Identification confirmed using: Name, : Yes Telehealth method: voice only Patient verbally consented to treatment: Yes Patient verbally consented to billing insurance company: Yes Patient informed of any privacy concerns related to visit: No Minutes spent on Phone/Video with Pt.: 15 Assessment & Plan Assessment & Plan (1) Bladder cancer: Comment: 02/05 TURBT T1LG Code(s): C67.9 - Malignant neoplasm of bladder, unspecified Category: Medical (2) Nephrolithiasis: Code(s): N20.0 - Calculus of kidney Category: Medical Plan Six-month follow-up renal ultrasound Six-month follow-up cysto check our Orders: Orders US renal BI 6 Months N20.0 - Calculus of kidney Patient Instructions: Imaging studies, laboratory and physical exam results were discussed and reviewed in detail. No major barriers to patient understanding were identified. An opportunity to ask questions regarding the treatment plan was provided. All questions were answered. The patient expressed understanding and agreement with the above treatment plan. The patient is aware they should contact our office by phone for worsening of their current condition or the appearance of new urologic symptoms. Compliance is encouraged with any medications and followup testing that is ordered. It is a privilege to participate in the urologic care of your patient. If you have any questions or concerns regarding treatment for the above conditions, or other urologic issues, please do not hesitate to contact me. The office telephone contact is [phone]. This note is constructed using voice recognition software. While every effort has been made to ensure accuracy cyber security consultant errors may have been included. Yours sincerely, Dr Vladimir Puentes MD, [facility] - Urology Providers of Expert, Compassionate Care for the Genitourinary System Coding Level of Care Code Tele Est Pt Level 3 (03888) Diagnoses Bladder cancer C67.9 Nephrolithiasis N20.0
== END 2023-12-06 12:03 | disposition home or self-care (01) ==
LOC: HO.HUSH 10:50
PROVIDERS: PCP Nurse Practitioner Family; Visit Provider Urology
DX: C67.9 Malignant neoplasm of bladder, unspecified (principal); N20.0 Calculus of kidney
CPT/HCPCS: 99442

== ENCOUNTER → 2023-12-06 10:50 | Outpatient (BNVA) | payer OTHER, SELFPAY | PROVIDERS: PCP Nurse Practitioner Family; Visit Provider Urology ==

== ENCOUNTER 2024-04-02 09:41 | Day surgery (SDC) | payer OTHER, SELFPAY ==
[2023-07-18 10:09] VITALS: BMI 19.5
--- NOTE | 2023-07-19 09:58 | HO.ANESPROP2 ---
HPI - Anesthesia Eval Consult details Narrative: 68yo M for Upper Endoscopy and Colonoscopy s/p TURBT 01/2023 with GA-LMA 4 PMFSH Active Problems Active Problems: All Active Problems (Updated 07/18/23 @ 09:57 by Mari Smith RN) Tinea (Acute) Cerumen impaction (Acute) Skin lesion (Acute) Nephrolithiasis (Acute) Bladder cancer (Acute) Bladder neoplasm of uncertain malignant potential (Acute) Abdominal pain (Acute) Hematemesis (Acute) Complaint of melena (Acute) Carpal tunnel syndrome of right wrist (Acute) Numbness of right hand (Acute) Abnormal MRI scan, arm (Acute) Right elbow pain (Acute) Right forearm pain (Acute) Right wrist pain (Acute) Screening for colon cancer (Acute) Screening PSA (prostate specific antigen) (Acute) Physical exam (Acute) DDD (degenerative disc disease), lumbar (Acute) Low back pain radiating to both legs (Acute) Pseudofolliculitis (Acute) Abscess (Acute) Hand injury (Acute) COPD (chronic obstructive pulmonary disease) (Acute) Unilateral primary osteoarthritis, right knee (Acute) Chronic GERD (Acute) History of smoking (Acute) Bronchitis with chronic airway obstruction (Acute) Acute asthma (Acute) High cholesterol (Acute) Past Medical History Medical History (Updated 07/18/23 @ 09:57 by Mari Smith RN) DDD (degenerative disc disease), lumbar COPD (chronic obstructive pulmonary disease) Renal calculi Bladder cancer Bilateral cataracts Muscle pain High cholesterol Asthma GERD (gastroesophageal reflux disease) Family History Family history of problems with anesthesia: No Surgical History Surgical History (Updated 07/18/23 @ 10:04 by Mari Smith RN) History of testicular surgery Hx of lithotripsy History of esophagogastroduodenoscopy (EGD) H/O colonoscopy Hx of cystoscopy History of Problems with Anesthesia: No Social History Social History Housing: Apartment Patient Tobacco Use Status: Former Tobacco user Years Smoked: quit 2 years ago e-Cigarette/Vaping Use: Never Used Second Hand Smoke Exposure: No service: No Current occupational status: disabled Cognitive needs: No Hearing needs: No Vision needs: No Meds Allergies Allergy/AdvReac Type Severity Reaction Status Date / Time No Known Allergies Allergy Verified 05/03/23 12:14 [No Known Allergies*] Home Medications Medication Instructions Recorded Confirmed Last Taken Type umeclidinium 62.5 mcg/actuation 1 inh inhalation DAILY 08/23/21 07/18/23 Unknown History blister powder for inhalation (Incruse Ellipta) esomeprazole magnesium 40 mg 40 mg PO DAILY 05/03/23 07/18/23 Unknown History capsule,delayed release Exam Height,Weight and Vital Signs: Height 5 ft 11 in Weight 63.503 kg Pertinent Lab Results Pertinent Lab Results: Laboratory Tests 12/28/22 10:42 WBC 9.7 Hgb 16.2 Hct 48.9 Plt Count 278 D Sodium 141 Potassium 3.8 Chloride 105 Carbon Dioxide 29 BUN 20 H Creatinine 0.74 Narrative Narrative: EKG 04/2023 SR @ 69 with short NH ? LAE Assessment and Plan Assessment Anesthesia Assessment: Chart Reviewed Final Anesthetic Review Family History of Problems with Anesthesia: No History of Problems with Anesthesia: No
--- NOTE | 2024-04-01 13:04 | HO.ANESPROP2 ---
HPI - Anesthesia Eval Consult details Narrative: 68yo M for Upper Endoscopy and Colonoscopy [facility] Active Problems Active Problems: All Active Problems Loss of hearing (Acute) Dyslipidemia (Acute) Tinea (Acute) Cerumen impaction (Acute) Skin lesion (Acute) Nephrolithiasis (Acute) Bladder cancer (Acute) Bladder neoplasm of uncertain malignant potential (Acute) Abdominal pain (Acute) Hematemesis (Acute) Complaint of melena (Acute) Carpal tunnel syndrome of right wrist (Acute) Numbness of right hand (Acute) Abnormal MRI scan, arm (Acute) Right elbow pain (Acute) Right forearm pain (Acute) Right wrist pain (Acute) Screening for colon cancer (Acute) Screening PSA (prostate specific antigen) (Acute) Physical exam (Acute) DDD (degenerative disc disease), lumbar (Acute) Low back pain radiating to both legs (Acute) Pseudofolliculitis (Acute) Abscess (Acute) Hand injury (Acute) COPD (chronic obstructive pulmonary disease) (Acute) Unilateral primary osteoarthritis, right knee (Acute) Chronic GERD (Acute) History of smoking (Acute) Bronchitis with chronic airway obstruction (Acute) Acute asthma (Acute) High cholesterol (Acute) Past Medical History Medical History Normal esophagogastroduodenoscopy (EGD) DDD (degenerative disc disease), lumbar COPD (chronic obstructive pulmonary disease) Renal calculi Bladder cancer Bilateral cataracts Muscle pain High cholesterol Asthma GERD (gastroesophageal reflux disease) Family History Family history of problems with anesthesia: No Surgical History Surgical History History of carpal tunnel release History of testicular surgery Hx of lithotripsy History of esophagogastroduodenoscopy (EGD) H/O colonoscopy Hx of cystoscopy History of Problems with Anesthesia: No Social History Social History Housing: Apartment Patient Tobacco Use Status: Former Tobacco user Years Smoked: quit 2 years ago e-Cigarette/Vaping Use: Never Used Second Hand Smoke Exposure: No Substance Use Type Other:: LAST SMOKED ONE MONTH AGO Have you been hit, kicked, punched, or otherwise hurt by someone within the past year? If so, by whom?: No Are you DNR?: No Advance Directives: No Advance Directives Information Provided: Yes service: No Current occupational status: disabled Cognitive needs: No Hearing needs: No Vision needs: No Meds Allergies Allergy/AdvReac Type Severity Reaction Status Date / Time No Known Allergies Allergy Verified 12/06/23 10:53 [No Known Allergies*] Home Medications ?Medication ?Instructions ?Recorded ?Confirmed ?Last Taken ?Type umeclidinium 62.5 mcg/actuation 1 inh inhalation DAILY 08/23/21 11/20/23 Unknown History blister powder for inhalation (Incruse Ellipta) Exam Height,Weight and Vital Signs: Height 5 ft 11 in Weight 63.503 kg Assessment and Plan Assessment Anesthesia Assessment: Chart Reviewed Final Anesthetic Review Family History of Problems with Anesthesia: No History of Problems with Anesthesia: No
--- OUTSIDE RECORDS SUMMARY | 2024-04-02 09:44 | XMS_ITS | Continuity of Care Document ---
Author Organization [facility] Address [address] [place] [id number]- Care Team Providers Care Head Banquet Waiter/Waitress Name Role Phone Isaias HOLLIS, Fernando Norris Primary Care Physician [phone] [place] [facility] [place]): [place] 02/19/22 [facility] [address] [place] [address] Attending Physician: Admtr, [id number] Admitting Physician: Admtr, [id number] Referring Physician: Admtr, Ar8 Allergies, Adverse Reactions, Alerts No Known Allergies Medications albuterol 0.083% inhalation solution 3 mL = 2.5 mg, Inhalation, Every 6 hours, PRN Wheezing/Shortness of Breath, J44.9, # 360 mL, 5 Refills, Maintenance, 01/31/21 13:08:00 EDT, [facility] #[id number], Partial fill upon patient request if the prescription is for a schedule... Start Date: 01/31/21 Stop Date: 07/30/21 Status: Ordered atorvastatin 40 mg oral tablet 1 tablet = 40 mg, By Mouth, Daily at bedtime, 0 Refills, Maintenance, 03/14/15 11:15:01 Start Date: 03/14/15 Status: Ordered Azithromycin 5 Day Dose Pack 250 mg oral tablet 1 pack/packet, By Mouth, Once, # 6 tablet, 1 Refills, Soft Stop, 11/06/20 15:12:00 EDT, [facility] #[id number], Partial fill upon patient request if the prescription is for a schedule IIopioid drug., 180, cm, 09/07/20 12:38:00 EST, Height Start Date: 11/06/20 Status: Ordered Breo Ellipta 100 mcg-25 mcg/inh inhalation powder 1 puffs, Inhalation, Daily, # 1 each, 11 Refills, Maintenance, 08/04/20 13:07:00 EST, Powder, [facility] #[id number], 1 puffs Inhalation Daily,x30 days, 180, cm, 01/14/19 9:07:00 EDT, Height Start Date: 08/04/20 Stop Date: 07/30/21 Status: Ordered Cetirizine = 10 mg, By Mouth, Daily, 0 Refills, Maintenance, 07/30/17 22:14:30 Start Date: 07/30/17 Status: Ordered cholecalciferol 1000 intl units oral tablet 2 tablet = 2,000 International_Units, By Mouth, Daily, # 30 tablet, 0 Refills, Maintenance, 07/31/17 0:05:53, Tablet Start Date: 07/31/17 Stop Date: 08/30/17 Status: Ordered Flomax 0.4 mg oral capsule 0.4 mg, 1, capsule, By Mouth, Daily, # 7 capsule, Refills 0, Tot. Refills 0, Maintenance, 08/23/19 10:23:00 EST, Route to Pharmacy Electronically, [facility] #[id number], 180, cm, 01/14/19 9:07:00 EDT, Height Start Date: 08/23/19 Stop Date: 08/30/19 Status: Ordered Incruse Ellipta 62.5 mcg/inh inhalation powder 1 each, Inhalation, Every 24 hours, doses should be taken at least 24 hours apart, replaces Spiriva, # 30 each, 5 Refills, Maintenance, 03/29/21 14:03:00 EDT, Powder, [facility] #[id number], COPD j44.9, 180, cm, 09/07/20 12:38:00 EST, Height Start Date: 03/29/21 Stop Date: 09/25/21 Status: Ordered nebulizer supplies nebulizer supplies, See Instructions, # 1 each, Refills 0, Tot. Refills 0, Maintenance, All relatedsmall volume nebulizer/compressor supplies to include: all nebulizer circuits, filters, tubing and masks Diagnosis: J44.9, 01/31/20 13:51:00 EDT, Supply Start Date: 01/31/20 Status: Ordered ondansetron 4 mg oral tablet 1 tablet = 4 mg, By Mouth, Every 8 hours, # 12 tablet, 0 Refills, Maintenance, 08/23/19 10:22:00 EST, Tablet, [facility] #[id number], 180, cm, 01/14/19 9:07:00 EDT, Height Start Date: 08/23/19 Stop Date: 08/27/19 Status: Ordered ProAir HFA 90 mcg/inh inhalation aerosol with adapter 2, puffs, Inhalation, Every 4 hours, PRN, j44.9, # 1 each, Refills 5, Tot. Refills 5, Maintenance, 11/06/20 14:15:00 EDT, Aerosol, Route to Pharmacy Electronically, MDPDP_[id number], [facility] #[id number], J 44.9, 180, cm, 09/07/20 12:38:00 EST,... Start Date: 11/06/20 Status: Ordered ProAir RespiClick 90 mcg/inh inhalation powder See Instructions, # 1 each, Refills 11 Tot. Refills 11, inhale 2 puffs by mouth every 4 hours if needed, [facility] Start Date: 12/27/18 Status: Ordered Protonix 40 mg oral delayed release tablet 1 tablet = 40 mg, By Mouth, 2 times a day, # 60 tablet, 3 Refills, Maintenance, 12/19/17 10:25:00 EDT Start Date: 12/19/17 Status: Ordered Ventolin Ventolin, 2, puffs, Inhalation, Daily, Refills 0, Maintenance, 09/12/17 10:21:14, Compound Start Date: 09/12/17 Status: Ordered Problem List Condition Effective Dates Status Health Status Inform ant Chronic cough(Confirmed) Active Hoarseness, chronic(Confirmed) Active Asthma with COPD(Confirmed) Active Dysphagia(Confirmed) Active NICKY on CPAP(Confirmed) Active Encounter for screening for lung cancer(Confirmed) Active Odynophagia(Confirmed) Active Vital Signs Most recent to oldest [Reference Range]: 1 Height 180 cm (12/06/18 4:08 PM) Weight 68.18 kg (12/06/18 4:08 PM) Social History Social History Type Response Smoking Status Former smoker; Tobac co user in household: No; Other: quit smoking 2009; entered on: 08/24/15 Sex
--- OUTSIDE RECORDS SUMMARY | 2024-04-02 09:44 | XMS_ITS | Continuity of Care Document ---
Author Organization [facility] Address [address] [place] [address] [address] [place] [address]- Care Team Providers Care Bricklayer Name Role Phone Isaias HOLLIS, Fernando Norris Primary Care Physician Encounter [facility] [place] Date(s): 01/31/20 - 04/11/20 [facility] [address] [place] [id number]- [facility] Attending Physician: Myah Monroe MD Admitting Physician: Myah Monroe MD Referring Physician: Fernando Esparza NP Allergies, Adverse Reactions, Alerts Substance Reaction Severity Status NKA Active Medications atorvastatin 40 mg oral tablet 1 tablet = 40 mg, By Mouth, Daily at bedtime, 0 Refills, Maintenance, 03/14/15 11:15:01 Start Date: 03/14/15 Status: Ordered Azithromycin 5 Day Dose Pack 250 mg oral tablet 1 pack/packet, By Mouth, Once, as directed on package labeling, # 6 tablet, 0 Refills, Soft Stop, 03/13/18 11:26:15 EDT, Tablet Start Date: 03/13/18 Status: Ordered Breo Ellipta 100 mcg-25 mcg/inh inhalation powder 1 puffs, Inhalation, Daily, # 1 box, 11 Refills, Maintenance, 09/12/17 10:30:19, Powder, 1 puffs Inhalation Daily,x30 days Start Date: 09/12/17 Stop Date: 09/07/18 Status: Ordered Cetirizine = 10 mg, By [...] 08/23/19 10:23:00 EST, Route to Pharmacy Electronically, [facility] #[id number], 180, cm, 01/14/19 9:07:00 EDT, Height Start Date: 08/23/19 Stop Date: 08/30/19 Status: Ordered nebulizer supplies nebulizer supplies, See [...] 0 Refills, Maintenance, 08/23/19 10:22:00 EST, Tablet, [facility] #[id number], 180, cm, 01/14/19 9:07:00 EDT, Height Start Date: 08/23/19 Stop Date: 08/27/19 Status: Ordered ProAir HFA 90 mcg/inh inhalation aerosol with adapter 2, puffs, Inhalation, Every 4 hours, PRN, j44.9, # 1 each, Refills 11, Tot. Refills 11, Maintenance, 01/31/20 12:22:00 EDT, Aerosol, Route to Pharmacy Electronically, PRPDP_[id number], [facility] #[id number], J 44.9, 180, cm, 01/14/19 9:07:00 EDT... Start Date: 01/31/20 Status: Ordered ProAir RespiClick 90 mcg/inh inhalation powder See Instructions, # 1 each, Refills 11 Tot. Refills 11, inhale 2 puffs by mouth every 4 hours if needed, [facility] Start Date: 12/27/18 Status: Ordered Protonix 40 mg oral delayed release tablet 1 tablet = 40 mg, By Mouth, 2 times a day, # 60 tablet, 3 Refills, Maintenance, 12/19/17 10:25:00 EDT Start Date: 12/19/17 Status: Ordered Spiriva HandiHaler 18 mcg Inhalation Capsule 1 capsule = 18 mcg, Inhalation, Daily, # 30 capsule, 11 Refills, Maintenance, 09/12/17 10:30:18, Inhalation Capsule, 1 capsule Inhalation Daily,x30 days Start Date: 09/12/17 Stop Date: 09/07/18 Status: Ordered Ventolin Ventolin, 2, puffs, Inhalation, Daily, Refills 0, Maintenance, 09/12/17 10:21:14, Compound Start Date: 09/12/17 Status: Ordered Problem List Condition Effective Dates Status Health Status Inform ant Chronic cough(Confirmed) Active Hoarseness, chronic(Confirmed) Active Asthma with COPD(Confirmed) Active Dysphagia(Confirmed) Active Odynophagia(Confirmed) Active Social History Social History Type Response Smoking Status Former smoker; Tobac co user in household: No; Other: quit smoking 2009; entered on: 08/24/15 Sex
--- OUTSIDE RECORDS SUMMARY | 2024-04-02 09:44 | XMS_ITS | Continuity of Care Document ---
Author Organization [facility] Address [address] [place] [address]- Care Team Providers Care Residential Carpet Installer Name Role Phone Isaias HOLLIS, Fernando Norris Primary Care Physician Encounter [facility] Date(s): 08/13/20 - 08/20/20 [facility] [address] [place] [id number] Attending Physician: Myah Monroe MD Allergies, Adverse Reactions, Alerts Substance Reaction Severity Status NKA Active Medications albuterol 0.083% inhalation solution 3 mL = 2.5 mg, Inhalation, Every 6 hours, PRN Wheezing/Shortness of Breath, # 180 mL, 5 Refills, Maintenance, 08/04/20 13:08:00 EST, [facility] #[id number], Partial fill upon patient request if the prescription is for a schedule II opio... Start Date: 08/04/20 Stop Date: 01/31/21 Status: Ordered atorvastatin 40 mg oral tablet [...] each, 11 Refills, Maintenance, 08/04/20 13:07:00 EST, [facility] #[id number], 1 puffs Inhalation Daily,x30 days, 180, cm, 07/01/19 9:07:00 EDT, Height Start Date: 08/04/20 Stop [...] 08/23/19 10:23:00 EST, Route to Pharmacy Electronically, [facility] #[id number], 180, cm, 01/14/19 9:07:00 EDT, Height Start Date: 08/23/19 Stop Date: 08/30/19 Status: Ordered nebulizer supplies nebulizer supplies, See Instructions, # 1 each, Refills 0, Tot. Refills 0, Maintenance, All relatedsmall volume nebulizer/compressor supplies to include: all nebulizer circuits, filters, tubing and masks Diagnosis: [place], 01/31/20 13:51:00 EDT, Supply Start Date: 01/31/20 Status: Ordered ondansetron 4 mg oral tablet 1 tablet = 4 mg, By Mouth, Every 8 hours, # 12 tablet, 0 Refills, Maintenance, 08/23/19 10:22:00 EST, Tablet, [facility] #[id number], 180, cm, 01/14/19 9:07:00 EDT, Height Start Date: 08/23/19 Stop Date: 08/27/19 Status: Ordered ProAir HFA 90 mcg/inh inhalation aerosol with adapter 2, puffs, Inhalation, Every 4 hours, PRN, aye, # 1 each, Refills 11, Tot. Refills 11, Maintenance, 08/04/20 13:07:00 EST, Aerosol, Route to Pharmacy Electronically, KYPDP_[id number], [facility] #[id number], J 44.9, 180, cm, 01/14/19 9:07:00 EDT... Start Date: 08/04/20 Status: Ordered ProAir RespiClick 90 mcg/inh inhalation powder See Instructions, # 1 each, Refills 11 Tot. Refills 11, inhale 2 puffs by mouth every 4 hours if needed, [facility] Start Date: 12/27/18 Status: Ordered Protonix 40 mg oral delayed release tablet 1 tablet = 40 mg, By Mouth, 2 times a day, # 60 tablet, 3 Refills, Maintenance, 12/19/17 10:25:00 EDT Start Date: 12/19/17 Status: Ordered Spiriva HandiHaler 18 mcg inhalation capsule 1 capsule = 18 mcg, Inhalation, Daily, # 30 capsule, 11 Refills, Maintenance, 08/04/20 13:07:00 EST, [facility] #[id number], Partial fill upon patient request if the prescription is for a schedule II opioid drug., 180, cm, 01/14/19 9:07:00 EDT, H... Start Date: 08/04/20 Stop Date: 07/30/21 Status: Ordered Ventolin Ventolin, 2, puffs, Inhalation, [...]
--- OUTSIDE RECORDS SUMMARY | 2024-04-02 09:44 | XMS_ITS | Continuity of Care Document ---
Author Organization [facility] Address [address] [place] [address]- Care Team Providers Care Over The Horizon Targeting Supervisor Name Role Phone Isaias HOLLIS, Fernando Norris Primary Care Physician [phone] Encounter [facility] [place] Date(s): 08/24/22 - 09/23/22 [facility] [address] [place] [id number] Allergies, Adverse Reactions, Alerts No Known Allergies Medications albuterol 0.083% inhalation solution 3 mL = 2.5 mg, Inhalation, Every 6 hours, PRN Wheezing/Shortness of Breath, J44.9, # 360 mL, 6 Refills, Maintenance, 07/12/22 12:02:00 EST, Solution, [facility] #[id number], Partial fill upon patient request if the prescription is for a schedule... Start Date: 07/12/22 Stop Date: 02/07/23 Status: Ordered atorvastatin 40 mg oral tablet 1 tablet = 40 mg, By Mouth, Daily at bedtime, 0 Refills, Maintenance, 03/14/15 11:15:01 Start Date: 03/14/15 Status: Ordered Azithromycin 5 Day Dose Pack 250 mg oral tablet 1 pack/packet, By Mouth, Once, # 6 tablet, 1 Refills, Soft Stop, 11/06/20 15:12:00 EDT, Tablet, [facility] #[id number], Partial fill upon patient request if the prescription is for a schedule IIopioid drug., 180, cm, 09/07/20 12:38:00 EST, Height Start Date: 11/06/20 Status: Ordered Breo Ellipta 100 mcg-25 mcg/inh inhalation powder 1 puffs, Inhalation, Daily, j44.9, # 1 each, 2 Refills, Maintenance, 08/25/22 16:34:00 EST, Powder,[facility] #[id number], 1 puffs Inhalation Daily,Instr:j44.9, 180, cm, 09/07/20 12:38:00 EST, Height Start Date: 08/25/22 Status: Ordered Cetirizine = 10 mg, By Mouth, Daily, 0 Refills, Maintenance, 07/30/17 22:14:30 Start Date: 07/30/17 Status: Ordered cholecalciferol 1000 intl units oral tablet 2 tablet = 2,000 International_Units, By Mouth, Daily, # 30 tablet, 0 Refills, Maintenance, 07/31/17 0:05:53, Tablet Start Date: 07/31/17 Stop Date: 08/30/17 Status: Ordered CPAP mask CPAP mask, See Instructions, # 1 each, Refills 0, Tot. Refills 0, Maintenance, CPAP Mask Fitting DxOSA G47.33, 08/26/22 17:17:00 EST, Supply Start Date: 08/26/22 Status: Ordered Flomax 0.4 mg oral capsule 0.4 mg, 1, capsule, By Mouth, Daily, # 7 capsule, Refills 0, Tot. Refills 0, Maintenance, 08/23/19 10:23:00 EST, Route to Pharmacy Electronically, [facility] #[id number], 180, cm, 01/14/19 9:07:00 EDT, Height Start Date: 08/23/19 Stop Date: 08/30/19 Status: Ordered Incruse Ellipta 62.5 mcg/inh inhalation powder 1 each, Inhalation, Every 24 hours, doses should be taken at least 24 hours apart, replaces Hakaycdn78.9, # 1 each, 2 Refills, Maintenance, 08/25/22 16:34:00 EST, Powder, [facility] #[id number], COPD j44.9, 180, cm, 09/07/20 12:38:00 EST, Height Start Date: 08/25/22 Status: Ordered nebulizer supplies nebulizer supplies, See Instructions, # 1 each, Refills 0, Tot. Refills 0, Maintenance, All relatedsmall volume nebulizer/compressor supplies to include: all nebulizer circuits, filters, tubing and masks Diagnosis: J44.[place], 01/31/20 13:51:00 EDT, Supply Start Date: 01/31/20 Status: Ordered ondansetron 4 mg oral tablet 1 tablet = 4 mg, By Mouth, Every 8 hours, # 12 tablet, 0 Refills, Maintenance, 08/23/19 10:22:00 EST, Tablet, [facility] #[id number], 180, cm, 01/14/19 9:07:00 EDT, Height Start Date: 08/23/19 Stop Date: 08/27/19 Status: Ordered ProAir HFA 90 mcg/inh inhalation aerosol with adapter 2, puffs, Inhalation, Every 4 hours, PRN, j44.9, # 1 each, Refills 5, Tot. Refills 5, Maintenance, 11/06/20 14:15:00 EDT, Aerosol, Route to Pharmacy Electronically, NCPDP_[id number], [facility] #[id number], J 44.9, 180, cm, 09/07/20 12:38:00 EST,... Start Date: 11/06/20 Status: Ordered ProAir RespiClick 90 mcg/inh inhalation powder See Instructions, # 1 each, Refills 11 Tot. Refills 11, inhale 2 puffs by mouth every 4 hours if needed, [facility] Start Date: 12/27/18 Status: Ordered Protonix 40 mg oral delayed release tablet 1 tablet = 40 mg, By Mouth, 2 times a day, # 60 tablet, 3 Refills, Maintenance, 12/19/17 10:25:00 EDT Start Date: 12/19/17 Status: Ordered Ventolin Ventolin, 2, puffs, Inhalation, Daily, Refills 0, Maintenance, 09/12/17 10:21:14, Compound Start Date: 09/12/17 Status: Ordered Problem List Condition Confirmation Course Effective Dates Status Health St atus Informant Chronic cough Confirmed Active Hoarseness, chronic Confirmed Active Asthma with COPD Confirmed Active Dysphagia Confirmed Active NICKY on CPAP Confirmed Active Encounter for screening for lung cancer Confirmed Active Odynophagia Confirmed Active Social History Social History Type Response Smoking Status Former smoker; Tobac co user in household: No; Other: quit smoking 2009; entered on: 08/24/15 Sex Patient Care team information Care Team Personnel Name: Glogowski ASSEMBLER CORNCOB PIPES , Aik Position: Reference Physician Member Role: PCP Address: Address: [address] [place] [address]- [place] Care Team Related Persons Name: ZARINA CAVAZOS Address: [place] [address] Name: MARCO A RAUSCH Address: home [address] [address] Name: CONCHITA GUZMAN Name: VÍCTOR DONG Address: home [address] [place] [address]
--- OUTSIDE RECORDS SUMMARY | 2024-04-02 09:44 | XMS_ITS | Continuity of Care Document ---
Author Organization [facility] Address [address] [place] [address]- Care Team Providers Care Sewer Repairer Name Role Phone Isaias HOLLIS, Fernando Norris Primary Care Physician En[place] [facility] [place] Date(s): 08/24/22 - 09/29/22 [facility] [address] [place] [address]- Attending Physician: Myah Monroe MD Admitting Physician: Myah Monroe MD Referring Physician: Fernando Esparza NP Allergies, Adverse Reactions, Alerts No Known Allergies Medications albuterol 0.083% inhalation solution 3 mL = 2.5 mg, Inhalation, Every 6 hours, PRN Wheezing/Shortness of Breath, J44.9, # 360 mL, 6 Refills, Maintenance, 07/12/22 12:02:00 EST, Solution, [facility] #[id number], Partial fill upon patient request if the [...] Refills, Soft Stop, 11/06/20 15:12:00 EDT, Tablet, [facility] #[id number], Partial fill upon patient request if the prescription is for a schedule IIopioid drug., 180, cm, 09/07/20 12:38:00 EST, Height Start Date: 11/06/20 Status: Ordered Breo Ellipta 100 mcg-25 mcg/inh inhalation powder 1 puffs, Inhalation, Daily, j44.9, # 1 each, 2 Refills, Maintenance, 08/25/22 16:34:00 EST, Powder,[facility] #[id number], 1 puffs Inhalation Daily,Instr:j44.9, 180, cm, 09/07/20 [...] 08/23/19 10:23:00 EST, Route to Pharmacy Electronically, [facility] #[id number], 180, cm, 01/14/19 9:07:00 EDT, Height Start Date: 08/23/19 Stop Date: 08/30/19 Status: Ordered Incruse Ellipta 62.5 mcg/inh inhalation powder 1 each, Inhalation, Every 24 hours, doses should be taken at least 24 hours apart, replaces Kcsutvub19.9, # 1 each, 2 Refills, Maintenance, 08/25/22 16:34:00 EST, Powder, [facility] #[id number], COPD j44.9, 180, cm, 09/07/20 12:38:00 EST, [...] 0 Refills, Maintenance, 08/23/19 10:22:00 EST, Tablet, [facility] #[id number], 180, cm, 01/14/19 9:07:00 EDT, Height Start Date: 08/23/19 Stop Date: 08/27/19 Status: Ordered ProAir HFA 90 mcg/inh inhalation aerosol with adapter 2, puffs, Inhalation, Every 4 hours, PRN, j44.9, # 1 each, Refills 5, Tot. Refills 5, Maintenance, 11/06/20 14:15:00 EDT, Aerosol, Route to Pharmacy Electronically, NCPDP_[id number], [facility] #[id number], J 44.9, 180, cm, 09/07/20 12:38:00 EST,... Start Date: 11/06/20 Status: Ordered ProAir RespiClick 90 mcg/inh inhalation powder See Instructions, # 1 each, Refills 11 Tot. Refills 11, inhale 2 puffs by mouth every 4 hours if needed, [facility] Start Date: 12/27/18 Status: Ordered Protonix 40 [...] Care team information Care Team Personnel Name: Fernando Esparza NP Position: Reference Physician Member Role: PCP Address: Address: [address] [place] [address]- Care Team Related Persons Name: ZARINA CAVAZOS Address: [place] [address] Name: MARCO A RAUSCH Address: home [address] [address] Name: CONCHITA GUZMAN Name: VÍCTOR DONG Address: home [address] [place] [address]
--- OUTSIDE RECORDS SUMMARY | 2024-04-02 09:44 | XMS_ITS | Continuity of Care Document ---
Author Organization [facility] Address [address] [place] [address]- Care Team Providers Care Auto Mechanics Teacher Name Role Phone Isaias HOLLIS, Fernando Norris Primary Care Physician [place] [facility] [place]23 - 04/21/23 [facility] [address] [place] [id number] Allergies, Adverse Reactions, Alerts No Known Allergies Medications albuterol 0.083% inhalation solution 3 mL = 2.5 mg, Inhalation, Every 6 hours, PRN for wheezing/shortness of breath, # 180 mL, 11 Refills, Maintenance, 01/03/23 8:21:00 EDT, Solution, [facility] #[id number], copd j44.9, 180, cm, 01/03/23 8:06:00 EDT, Height Start Date: 01/03/23 Stop Date: 12/29/23 Status: Ordered atorvastatin 40 mg oral tablet 1 tablet = 40 mg, By Mouth, Daily at bedtime, 0 Refills, Maintenance, 03/14/15 11:15:01 Start Date: 03/14/15 Status: Ordered Azithromycin 5 Day Dose Pack 250 mg oral tablet 1 pack/packet, By Mouth, Once, # 6 tablet, 1 Refills, Soft Stop, 11/06/20 15:12:00 EDT, Tablet, [facility] #[id number], Partial fill upon patient request if the prescription is for a schedule IIopioid drug., 180, cm, 09/07/20 12:38:00 EST, Height Start Date: 11/06/20 Status: Ordered Azithromycin 5 Day Dose Pack 250 mg oral tablet 1 pack/packet, By Mouth, Once, as directed on package labeling, # 6 tablet, 0 Refills, Soft Stop, 03/22/23 14:15:00 EDT, Tablet, [facility] #[id number], Partial fill upon patient request if the prescription is for a schedule II opioid drug., 180,... Start Date: 03/22/23 Status: Ordered Breo Ellipta 100 mcg-25 mcg/inh inhalation powder 1 puffs, Inhalation, Daily, # 1 each, 11 Refills, Maintenance, 01/03/23 8:20:00 EDT, Powder, [facility] #[id number], copd j44.9, 1 puffs Inhalation Daily,x30 days, 180, cm, 01/03/23 8:06:00 EDT,Height Start Date: 01/03/23 Stop Date: 12/29/23 Status: Ordered Cetirizine = 10 mg, By Mouth, Daily, 0 Refills, Maintenance, 07/30/17 22:14:30 Start Date: 07/30/17 Status: Ordered cholecalciferol 1000 intl units oral tablet 2 tablet = 2,000 International_Units, By Mouth, Daily, # 30 tablet, 0 Refills, Maintenance, 07/31/17 0:05:53, Tablet Start Date: 07/31/17 Stop Date: 08/30/17 Status: Ordered CPAP Equipment See Instructions, # 1 each, Refills 11, Tot. Refills 11, Maintenance, PAP supplies Refill mask and supplies A4604 Heated Tubing/Climate line or A7037 Tubing A7038 or A7039 Filters A7036 Chin strap A7046 Humidifier Chamber A7035 Headgear A7027,... Start Date: 01/03/23 Status: Ordered CPAP mask CPAP mask, See Instructions, # 1 each, Refills 0, Tot. Refills 0, Maintenance, CPAP Mask Fitting DxOSA G47.33, 08/26/22 17:17:00 EST, Supply Start Date: 08/26/22 Status: Ordered Flomax 0.4 mg oral capsule 0.4 mg, 1, capsule, By Mouth, Daily, # 7 capsule, Refills 0, Tot. Refills 0, Maintenance, 08/23/19 10:23:00 EST, Route to Pharmacy Electronically, [facility] #[id number], 180, cm, 01/14/19 9:07:00 EDT, Height Start Date: 08/23/19 Stop Date: 08/30/19 Status: Ordered Incruse Ellipta 62.5 mcg/inh inhalation powder 1 each, Inhalation, Every 24 hours, doses should be taken at least 24 hours apart, # 30 each, 11 Refills, Maintenance, 01/03/23 8:20:00 EDT, Powder, [facility] #[id number], copd j44.9, 180, cm, 01/03/23 8:06:00 EDT, Height Start Date: 01/03/23 Stop Date: 12/29/23 Status: Ordered nebulizer supplies nebulizer supplies, See [...] 0 Refills, Maintenance, 08/23/19 10:22:00 EST, Tablet, [facility] #[id number], 180, cm, 01/14/19 9:07:00 EDT, Height Start Date: 08/23/19 Stop Date: 08/27/19 Status: Ordered PAP Mask Fitting PAP Mask Fitting, See Instructions, # 1 each, Refills 0, Tot. Refills 0, Maintenance, CPAP Mask fitting Dx NICKY G47.33, 02/21/23 8:42:00 EDT, Supply Start Date: 02/21/23 Status: Ordered ProAir RespiClick 90 mcg/inh inhalation powder See Instructions, # 1 each, Refills 11 Tot. Refills 11, inhale 2 puffs by mouth every 4 hours if needed, [facility] Start Date: 12/27/18 Status: Ordered [...] Reference Physician Member Role: PCP Address: Address: [address] [place] [address]- Care Team Related Persons Name: ZARINA CAVAZOS Address: [place] [address] Name: MARCO A RAUSCH Address: home [address] [address] Name: CONCHITA GUZMAN Name: VÍCTOR DONG Address: home [address] [place] [address]
--- OUTSIDE RECORDS SUMMARY | 2024-04-02 09:44 | XMS_ITS | Continuity of Care Document ---
Author Organization [facility] ter Address [address] [place] [address]- Care Team Providers Care Crimping Machine Operator For Metal Name Role Phone Isaias HOLLIS, Fernando Norris Primary Care Physician [phone] Encounter [facility] [place] Date(s): 06/16/19 - 08/11/[address] [address]- [facility] Attending Physician: Myah Monroe MD Admitting Physician: Myah Monroe MD Referring Physician: Myah Monroe MD Allergies, Adverse Reactions, [...] Date: 07/31/17 Stop Date: 08/30/17 Status: Ordered ProAir HFA 90 mcg/inh inhalation aerosol with adapter 2, puffs, Inhalation, Every 4 hours, PRN, # 1 each, Refills 11, Tot. Refills 11, Maintenance, 12/27/18 13:40:00 EDT, Aerosol, [id number], J 44.9 Start Date: 12/27/18 Status: Ordered ProAir RespiClick 90 mcg/inh inhalation powder See Instructions, # 1 each, Refills 11 Tot. Refills 11, inhale 2 puffs by mouth every 4 hours if needed, [facility] Start Date: 12/27/18 Status: Ordered Protonix 40 [...]
--- OUTSIDE RECORDS SUMMARY | 2024-04-02 09:44 | XMS_ITS | Continuity of Care Document ---
Author Organization [facility] Address [address] [place] [address]- Care Team Providers Care Angle Shearer Name Role Phone sIaias HOLLIS, Fernando Norris Primary Care Physician [phone] Encounter [facility] [place] Date(s): 02/17/23 - 03/19/23 [facility] [address] [place] [id number] Allergies, Adverse Reactions, Alerts No Known Allergies Medications albuterol 0.083% inhalation solution 3 mL = 2.5 mg, Inhalation, Every 6 hours, PRN for wheezing/shortness of breath, # 180 mL, 11 Refills, Maintenance, 01/03/23 8:21:00 EDT, Solution, [facility] #[id number], copd j44.9, 180, cm, 01/03/23 8:06:00 EDT, [...] 1 Refills, Soft Stop, 11/06/20 15:12:00 EDT, [facility] #[id number], Partial fill upon patient request if the prescription is for a schedule IIopioid drug., 180, cm, 09/07/20 12:38:00 EST, Height Start Date: 11/06/20 Status: Ordered Breo Ellipta 100 mcg-25 mcg/inh inhalation powder 1 puffs, Inhalation, Daily, # 1 each, 11 Refills, Maintenance, 01/03/23 8:20:00 EDT, Powder, [facility] #[id number], copd j44.9, 1 puffs Inhalation Daily,x30 days, [...] 08/23/19 10:23:00 EST, Route to Pharmacy Electronically, [facility] #[id number], 180, cm, 01/14/19 9:07:00 EDT, Height Start Date: 08/23/19 Stop Date: 08/30/19 Status: Ordered Incruse Ellipta 62.5 mcg/inh inhalation powder 1 each, Inhalation, Every 24 hours, doses should be taken at least 24 hours apart, # 30 each, 11 Refills, Maintenance, 01/03/23 8:20:00 EDT, Powder, [facility] #[id number], copd j44.9, 180, cm, 01/03/23 8:06:00 EDT, [...] 0 Refills, Maintenance, 08/23/19 10:22:00 EST, Tablet, [facility] #[id number], 180, cm, 01/14/19 9:07:00 EDT, Height Start [...] hours if needed, [facility] Start Date: 12/27/18 Status: Ordered Protonix [...] Reference Physician Member Role: PCP Address: Address: [address] [place] [address]- Care Team Related Persons Name: ZARINA CAVAZOS Address: [place] [address] Name: MARCO A RAUSCH Address: home [address] [place] [address] Name: CONCHITA GUZMAN Name: VÍCTOR DONG Address: home [address] [place] [address]
--- OUTSIDE RECORDS SUMMARY | 2024-04-02 09:44 | XMS_ITS | Continuity of Care Document ---
Author Organization [facility] Address [address] [place] [address]- Care Team Providers Care Truck Crane Operator Helper Name Role Phone Isaias HOLLIS, Fernando Norris Primary Care Physician Encounter [facility] [place] Date(s): 11/06/20 - 01/02/21 [facility] [address] [place] [address] [address] [place] [address]- Attending Physician: Myah Monroe MD Allergies, Adverse Reactions, Alerts Substance Reaction Severity Status NKA Active Medications albuterol 0.083% inhalation solution 3 mL = 2.5 mg, Inhalation, Every 6 hours, PRN Wheezing/Shortness of Breath, J44.9, # 360 mL, 5 Refills, Maintenance, 01/31/21 13:08:00 EDT, [facility] #[id number], Partial fill upon patient request if the prescription is for a schedule... Start Date: 01/31/21 Stop Date: 07/30/21 Status: Ordered albuterol 0.083% inhalation solution 3 mL = 2.5 mg, Inhalation, Every 6 hours, PRN Wheezing/Shortness of Breath, for 30 days, # 180 mL, 5 Refills, Hard Stop 01/31/21 13:08:00 EDT, 08/04/20 13:08:00 EST, [facility] #[id number], Partial fill upon patient request if the presc... Start Date: 08/04/20 Stop Date: 01/31/21 Status: Ordered atorvastatin 40 mg oral tablet 1 tablet = 40 mg, By Mouth, Daily at bedtime, 0 Refills, Maintenance, 03/14/15 11:15:01 Start Date: 03/14/15 Status: Ordered Azithromycin 5 Day Dose Pack 250 mg oral tablet 1 pack/packet, By Mouth, Once, # 6 tablet, 1 Refills, Soft Stop, 11/06/20 15:12:00 EDT, Tablet, [facility] #[id number], Partial fill upon patient request if the prescription is for a schedule IIopioid drug., 180, cm, 09/07/20 12:38:00 EST, Height Start Date: 11/06/20 Status: Ordered Breo Ellipta 100 mcg-25 mcg/inh inhalation powder 1 puffs, Inhalation, Daily, # 1 each, 11 Refills, Maintenance, 08/04/20 13:07:00 EST, Powder, [facility] #[id number], 1 puffs Inhalation Daily,x30 days, 180, cm, [...] 08/23/19 10:23:00 EST, Route to Pharmacy Electronically, [facility] #[id number], 180, cm, 01/14/19 9:07:00 EDT, Height Start [...] 0 Refills, Maintenance, 08/23/19 10:22:00 EST, Tablet, [facility] #[id number], 180, cm, 01/14/19 9:07:00 EDT, Height Start Date: 08/23/19 Stop Date: 08/27/19 Status: Ordered predniSONE 5 mg oral tablet 1 tablet = 5 mg, By Mouth, Daily, 4 tabs daily reduce by 1 tab every 3 days (or if wheezing resolved, every 2 days), # 30 tablet, 0 Refills, Acute 04/25/21 15:12:00 EDT, 11/06/20 15:12:00 EDT, [facility] #[id number], Partial fill upon patient req... Start Date: 11/06/20 Stop Date: 04/25/21 Status: Ordered ProAir HFA 90 mcg/inh inhalation aerosol with adapter 2, puffs, Inhalation, Every 4 hours, PRN, j44.9, # 1 each, Refills 5, Tot. Refills 5, Maintenance, 11/06/20 14:15:00 EDT, Aerosol, Route to Pharmacy Electronically, [facility]_[id number], [facility] #[id number], J 44.9, 180, cm, 09/07/20 12:38:00 EST,... Start Date: 11/06/20 Status: Ordered ProAir RespiClick 90 mcg/inh inhalation powder See Instructions, # 1 each, Refills 11 Tot. Refills 11, inhale 2 puffs by mouth every 4 hours if needed, [facility] Start Date: 12/27/18 Status: Ordered Protonix 40 mg oral delayed release tablet 1 tablet = 40 mg, By Mouth, 2 times a day, # 60 tablet, 3 Refills, Maintenance, 12/19/17 10:25:00 EDT Start Date: 12/19/17 Status: Ordered Spiriva HandiHaler 18 mcg inhalation capsule 1 capsule = 18 mcg, Inhalation, Daily, # 30 capsule, 11 Refills, Maintenance, 08/04/20 13:07:00 EST, [facility] #[id number], Partial fill upon patient request if the prescription is for a schedule II opioid drug., 180, cm, 01/14/19 9:07:00 EDTamra Hanks.. Start Date: 08/04/20 Stop Date: 07/30/21 Status: Ordered Ventolin Ventolin, 2, puffs, Inhalation, Daily, Refills 0, Maintenance, 09/12/17 10:21:14, Compound Start Date: 09/12/17 Status: Ordered Problem List Condition Effective Dates Status Health Status Inform ant Chronic cough(Confirmed) Active Hoarseness, chronic(Confirmed) Active Asthma with COPD(Confirmed) Active Dysphagia(Confirmed) Active NICKY on CPAP(Confirmed) Active Encounter for screening for lung cancer(Confirmed) Active Odynophagia(Confirmed) Active Social History Social History Type Response Smoking Status Former smoker; Tobac co user in household: No; Other: quit smoking 2009; entered on: 08/24/15 Sex
--- OUTSIDE RECORDS SUMMARY | 2024-04-02 09:44 | XMS_ITS | Continuity of Care Document ---
Author Organization [facility] ter Address [address] [place] [address]- Care Team Providers Care Center Specialists Name Role Phone Isaias HOLLIS, Fernando Norris Primary Care Physician [place] [facility] [place](s): 09/21/20 - 11/12/[address] [email or web address] Attending Physician: Tulio Marsh MD Admitting Physician: Tulio Marsh MD Referring Physician: Tulio Marsh MD Allergies, Adverse Reactions, Alerts Substance Reaction Severity Status NKA Active Medications albuterol 0.083% inhalation solution 3 mL = 2.5 mg, Inhalation, Every 6 hours, PRN Wheezing/Shortness of Breath, J44.9, # 360 mL, 5 Refills, Maintenance, 01/31/21 13:08:00 EDT, [facility] #[id number], Partial fill upon patient request if the prescription is for a schedule... Start Date: 01/31/21 Stop Date: 07/30/21 Status: Ordered albuterol 0.083% inhalation solution 3 mL = 2.5 mg, Inhalation, Every 6 hours, PRN Wheezing/Shortness of Breath, for 30 days, # 180 mL, 5 Refills, Hard Stop 01/31/21 13:08:00 EDT, 08/04/20 13:08:00 EST, [facility] #[id number], Partial fill upon patient request if the [...] Refills, Soft Stop, 11/06/20 15:12:00 EDT, Tablet, [facility] #[id number], Partial fill upon patient request if the prescription is for a schedule IIopioid drug., 180, cm, 09/07/20 12:38:00 EST, Height Start Date: 11/06/20 Status: Ordered Breo Ellipta 100 mcg-25 mcg/inh inhalation powder 1 puffs, Inhalation, Daily, # 1 each, 11 Refills, Maintenance, 08/04/20 13:07:00 EST, Powder, [facility] #[id number], 1 puffs Inhalation Daily,x30 days, 180, cm, [...] 08/23/19 10:23:00 EST, Route to Pharmacy Electronically, [facility] #[id number], 180, cm, 01/14/19 9:07:00 EDT, Height Start [...] 0 Refills, Maintenance, 08/23/19 10:22:00 EST, Tablet, [facility] #[id number], 180, cm, 01/14/19 9:07:00 EDT, Height Start Date: 08/23/19 Stop Date: 08/27/19 Status: Ordered predniSONE 5 mg oral tablet 1 tablet = 5 mg, By Mouth, Daily, 4 tabs daily reduce by 1 tab every 3 days (or if wheezing resolved, every 2 days), # 30 tablet, 0 Refills, Acute 04/25/21 15:12:00 EDT, 11/06/20 15:12:00 EDT, [facility] #[id number], Partial fill upon patient req... Start Date: 11/06/20 Stop Date: 04/25/21 Status: Ordered ProAir HFA 90 mcg/inh inhalation aerosol with adapter 2, puffs, Inhalation, Every 4 hours, PRN, j44.9, # 1 each, Refills 5, Tot. Refills 5, Maintenance, 11/06/20 14:15:00 EDT, Aerosol, Route to Pharmacy Electronically, [facility]_[id number], [facility] #[id number], J 44.9, 180, cm, 09/07/20 12:38:00 EST,... Start Date: 11/06/20 Status: Ordered ProAir RespiClick 90 mcg/inh inhalation powder See Instructions, # 1 each, Refills 11 Tot. Refills 11, inhale 2 puffs by mouth every 4 hours if needed, [facility] Start Date: 12/27/18 Status: Ordered Protonix 40 mg oral delayed release tablet 1 tablet = 40 mg, By Mouth, 2 times a day, # 60 tablet, 3 Refills, Maintenance, 12/19/17 10:25:00 EDT Start Date: 12/19/17 Status: Ordered Spiriva HandiHaler 18 mcg inhalation capsule 1 capsule = 18 mcg, Inhalation, Daily, # 30 capsule, 11 Refills, Maintenance, 08/04/20 13:07:00 EST, [facility] #[id number], Partial fill upon patient request if the [...] Active Asthma with COPD(Confirmed) Active Dysphagia(Confirmed) Active NIKCY on CPAP(Confirmed) Active Encounter for screening for lung cancer(Confirmed) Active Odynophagia(Confirmed) Active Social History Social History Type Response Smoking Status Former smoker; Tobac co user in household: No; Other: quit smoking 2009; entered on: 08/24/15 Sex
--- OUTSIDE RECORDS SUMMARY | 2024-04-02 09:44 | XMS_ITS | Continuity of Care Document ---
Author Organization [facility] Address [address] [place] [address]- Care Team Providers Care Financial Services Rep Name Role Phone Isaias HOLLIS, Fernando Norris Primary Care Physician [phone] Encounter [facility] [place] Date(s): 11/29/23 - 12/29/23 [facility] [address] [place] [address] [address] [place], [place] [address] Allergies, Adverse Reactions, Alerts No Known Allergies Medications albuterol 0.083% inhalation solution 3 mL = 2.5 mg, Inhalation, Every 6 hours, PRN for wheezing/shortness of breath, # 180 mL, 11 Refills, Maintenance, 11/22/23 8:53:00 EDT, Solution, [facility] #[id number], copd j44.9, 180, cm, 11/22/23 8:32:00 EDT, Height Start Date: 11/22/23 Stop Date: 11/16/24 Status: Ordered atorvastatin 40 mg oral tablet 1 tablet = 40 mg, By Mouth, Daily at bedtime, 0 Refills, Maintenance, 03/14/15 11:15:01 Start Date: 03/14/15 Status: Ordered Azithromycin 5 Day Dose Pack 250 mg oral tablet 1 pack/packet, By Mouth, Once, # 6 tablet, 1 Refills, Soft Stop, 11/06/20 15:12:00 EDT, Tablet, [facility] #[id number], Partial fill upon patient request if the prescription is for a schedule IIopioid drug., 180, cm, 09/07/20 12:38:00 EST, Height Start Date: 11/06/20 Status: Ordered Azithromycin 5 Day Dose Pack 250 mg oral tablet 1 pack/packet, By Mouth, Once, as directed on package labeling, # 6 tablet, 0 Refills, Soft Stop, 03/22/23 14:15:00 EDT, Tablet, [facility] #[id number], Partial fill upon patient request if the prescription is for a schedule II opioid drug., 180,... Start Date: 03/22/23 Status: Ordered Breo Ellipta 100 mcg-25 mcg/inh inhalation powder 1 puffs, Inhalation, Daily, # 1 each, 11 Refills, Maintenance, 11/22/23 8:53:00 EDT, Powder, [facility] #[id number], copd j44.9, 1 puffs Inhalation Daily,x30 days, 180, cm, 11/22/23 8:32:00 EDT,Height Start Date: 11/22/23 Stop Date: 11/16/24 Status: Ordered Cetirizine = 10 mg, By [...] 08/23/19 10:23:00 EST, Route to Pharmacy Electronically, [facility] #[id number], 180, cm, 01/14/19 9:07:00 EDT, Height Start Date: 08/23/19 Stop Date: 08/30/19 Status: Ordered Incruse Ellipta 62.5 mcg/inh inhalation powder 1 each, Inhalation, Every 24 hours, doses should be taken at least 24 hours apart, # 30 each, 11 Refills, Maintenance, 11/22/23 8:53:00 EDT, Powder, [facility] #55354, copd j44.9, 180, cm, 11/22/23 8:32:00 EDT, Height Start Date: 11/22/23 Stop Date: 11/16/24 Status: Ordered Nebulizer supplies Nebulizer supplies, See Instructions, # 1 each, Refills 0, Tot. Refills 0, Maintenance, A7003 Neb Disp Set A7014 Neb non-Disp Filter A7005 Neb Non-Disp set A7015 Aerosol Mask A7013 Neb Disp Filter length of need lifetime 99 months for home use, 05... Start Date: 11/29/23 Status: Ordered nebulizer supplies nebulizer supplies, See [...] 0 Refills, Maintenance, 08/23/19 10:22:00 EST, Tablet, [facility] #[id number], 180, cm, 01/14/19 9:07:00 EDT, Height Start Date: 08/23/19 Stop Date: 08/27/19 Status: Ordered PAP Mask Fitting PAP Mask Fitting, See Instructions, # 1 each, Refills 0, Tot. Refills 0, Maintenance, CPAP Mask fitting Dx NICKY G47.33, 02/21/23 8:42:00 EDT, Supply Start Date: 02/21/23 Status: Ordered PAP SUPPLIES PAP SUPPLIES, See Instructions, # 1 each, Refills 11, Tot. Refills 11, Maintenance, PAP supplies Refill mask and supplies A4604 Heated Tubing/Climate line or A7037 Tubing A7038 or A7039 Filters O5540Cqle strap A7046 Humidifier Chamber A7035 H... Start Date: 11/22/23 Status: Ordered ProAir HFA 90 mcg/inh inhalation aerosol with adapter 2, puffs, Inhalation, Every 6 hours, PRN, # 8.5 Gm, Refills 11, Tot. Refills 11, Maintenance, 11/22/23 8:54:00 EDT, Aerosol, Route to Pharmacy Electronically, [facility]_[id number], [facility] #[id number], copd j44.9, 180, cm, 11/22/23 8:32:00 EDT, He... Start Date: 11/22/23 Stop Date: 11/16/24 Status: Ordered ProAir RespiClick 90 mcg/inh inhalation powder See Instructions, # 1 each, Refills 11 Tot. Refills 11, inhale 2 puffs by mouth every 4 hours if needed, [facility] Start Date: 12/27/18 Status: Ordered Protonix [...] team information Care Team Personnel Name: Fernando Espraza NP Position: Reference Physician Member Role: PCP Address: Address: [address] [place] [address]- Care Team Related Persons Name: ZARINA CAVAZOS Address: [place] [address] Name: MARCO A RAUSCH Address: home [address] [address] Name: CONCHITA GUZMAN Name: VÍCTOR DONG Address: home [address] [place] [address]
--- OUTSIDE RECORDS SUMMARY | 2024-04-02 09:44 | XMS_ITS | Continuity of Care Document ---
Author Organization [facility] ter Address [address] [place] [address]- Care Team Providers Care Head Waiter Name Role Phone Isaias HOLLIS, Fernando Norris Primary Care Physician [phone] Encounter [facility] [place] Date(s): 03/22/23 - 05/05/[address] [address] Attending Physician: Tim Faust MD Admitting Physician: Tim Faust MD Referring Physician: Fernando Esparza NP Allergies, Adverse Reactions, Alerts No Known Allergies Medications albuterol 0.083% inhalation solution 3 mL = 2.5 mg, Inhalation, Every 6 hours, PRN for wheezing/shortness of breath, # 180 mL, 11 Refills, Maintenance, 01/03/23 8:21:00 EDT, Solution, [facility] #[id number], copd j44.9, 180, cm, 01/03/23 8:06:00 EDT, [...] Refills, Soft Stop, 11/06/20 15:12:00 EDT, Tablet, [facility] #[id number], Partial fill upon patient request if the prescription is for a schedule IIopioid drug., 180, cm, 09/07/20 12:38:00 EST, Height Start Date: 11/06/20 Status: Ordered Azithromycin 5 Day Dose Pack 250 mg oral tablet 1 pack/packet, By Mouth, Once, as directed on package labeling, # 6 tablet, 0 Refills, Soft Stop, 03/22/23 14:15:00 EDT, Tablet, [facility] #[id number], Partial fill upon patient request if the prescription is for a schedule II opioid drug., 180,... Start Date: 03/22/23 Status: Ordered Breo Ellipta 100 mcg-25 mcg/inh inhalation powder 1 puffs, Inhalation, Daily, # 1 each, 11 Refills, Maintenance, 01/03/23 8:20:00 EDT, Powder, [facility] #15794, copd j44.9, 1 puffs Inhalation Daily,x30 days, [...] 08/23/19 10:23:00 EST, Route to Pharmacy Electronically, [facility] #[id number], 180, cm, 01/14/19 9:07:00 EDT, Height Start Date: 08/23/19 Stop Date: 08/30/19 Status: Ordered Incruse Ellipta 62.5 mcg/inh inhalation powder 1 each, Inhalation, Every 24 hours, doses should be taken at least 24 hours apart, # 30 each, 11 Refills, Maintenance, 01/03/23 8:20:00 EDT, Powder, [facility] #[id number], copd j44.9, 180, cm, 01/03/23 8:06:00 EDT, [...] 0 Refills, Maintenance, 08/23/19 10:22:00 EST, Tablet, [facility] #[id number], 180, cm, 01/14/19 9:07:00 EDT, Height Start [...] hours if needed, [facility] Start Date: 12/27/18 Status: Ordered Protonix 40 [...] Reference Physician Member Role: PCP Address: Address: [address] [place] [address]- Care Team Related Persons Name: ZARINA CAVAZOS Address: [place] [address] Name: MARCO A RAUSCH Address: home [address] [place] [address] Name: CONCHITA GUZMAN Name: VÍCTOR DONG Address: home [address] [place] [address]
--- OUTSIDE RECORDS SUMMARY | 2024-04-02 09:44 | XMS_ITS | Continuity of Care Document ---
Author Organization [facility] Address [address] [place] [address]- Care Team Providers Care Chemistry Teacher Name Role Phone Isaias HOLLIS, Fernando Norris Primary Care Physician En[place] [facility] [place](s[place] 06/27/23 - 07/27/23 [facility] [address] [place] [address] Attending Physician: Admtr, Sondra Admitting Physician: Admtr, Ar8 Referring Physician: Admtr, Ar8 Allergies, Adverse Reactions, Alerts No Known Allergies Medications albuterol 0.083% inhalation solution 3 mL = 2.5 mg, Inhalation, Every 6 hours, PRN for wheezing/shortness of breath, # 180 mL, 11 Refills, Maintenance, 01/03/23 8:21:00 EDT, Solution, [facility] #[id number], copd j44.9, 180, cm, 01/03/23 8:06:00 EDT, [...] Refills, Soft Stop, 11/06/20 15:12:00 EDT, Tablet, [facility] #[id number], Partial fill upon patient request if the prescription is for a schedule IIopioid drug., 180, cm, 09/07/20 12:38:00 EST, Height Start Date: 11/06/20 Status: Ordered Azithromycin 5 Day Dose Pack 250 mg oral tablet 1 pack/packet, By Mouth, Once, as directed on package labeling, # 6 tablet, 0 Refills, Soft Stop, 03/22/23 14:15:00 EDT, Tablet, [facility] #[id number], Partial fill upon patient request if the prescription is for a schedule II opioid drug., 180,... Start Date: 03/22/23 Status: Ordered Breo Ellipta 100 mcg-25 mcg/inh inhalation powder 1 puffs, Inhalation, Daily, # 1 each, 11 Refills, Maintenance, 01/03/23 8:20:00 EDT, Powder, [facility] #[id number], copd j44.9, 1 puffs Inhalation Daily,x30 days, [...] 08/23/19 10:23:00 EST, Route to Pharmacy Electronically, [facility] #[id number], 180, cm, 01/14/19 9:07:00 EDT, Height Start Date: 08/23/19 Stop Date: 08/30/19 Status: Ordered Incruse Ellipta 62.5 mcg/inh inhalation powder 1 each, Inhalation, Every 24 hours, doses should be taken at least 24 hours apart, # 30 each, 11 Refills, Maintenance, 01/03/23 8:20:00 EDT, Powder, [facility] #[id number], copd j44.9, 180, cm, 01/03/23 8:06:00 EDT, [...] 0 Refills, Maintenance, 08/23/19 10:22:00 EST, Tablet, [facility] #[id number], 180, cm, 01/14/19 9:07:00 EDT, Height Start [...] lung cancer Confirmed Active Odynophagia Confirmed Active Vital Signs Most recent to oldest [...] Reference Physician Member Role: PCP Address: Address: [address] [place] [address]- Care Team Related Persons Name: ZARINA CAVAZOS Address: [place] [address] Name: MARCO A RAUSCH Address: home [address] [address] Name: CONCHITA GUZMAN Name: VÍCTOR DONG Address: home [address] [place] [address]
--- OUTSIDE RECORDS SUMMARY | 2024-04-02 09:44 | XMS_ITS | Continuity of Care Document ---
Author Organization [facility] ed[facility] Address [address] [place] [address] [address] [place] [address]- Care Team Providers Care Gaming Associate Name Role Phone Isaias HOLLIS, Fernando Norris Primary Care Physician [phone] Encounter [place] Date(s): 09/14/20 - 10/14/20 [facility] Medicine [address] [place] [address] [address] [place], [place] [address] Attending Physician: Admtr, Sondra Admitting Physician: Admtr, Ar8 Referring Physician: Admtr, Ar8 Allergies, Adverse Reactions, Alerts Substance Reaction Severity Status NKA Active Medications albuterol 0.083% inhalation solution 3 mL = 2.5 mg, Inhalation, Every 6 hours, PRN Wheezing/Shortness of Breath, # 180 mL, 5 Refills, Maintenance, 08/04/20 13:08:00 EST, Solution, [facility] #[id number], Partial fill upon patient request if the [...] EDT, Tablet Start Date: 03/13/18 Status: Ordered Azithromycin 5 Day Dose Pack 250 mg oral tablet 1 pack/packet, By Mouth, Once, # 6 tablet, 0 Refills, Soft Stop, 09/07/20 13:15:00 EST, Tablet, [facility] #[id number], Partial fill upon patient request if the prescription is for a schedule IIopioid drug., 180, cm, 09/07/20 12:38:00 EST, Height Start Date: 09/07/20 Status: Ordered Breo Ellipta 100 mcg-25 mcg/inh inhalation powder 1 puffs, Inhalation, Daily, # 1 each, 11 Refills, Maintenance, 08/04/20 13:07:00 EST, Powder, [facility] #[id number], 1 puffs Inhalation Daily,x30 days, 180, cm, [...] 08/23/19 10:23:00 EST, Route to Pharmacy Electronically, [facility] #[id number], 180, cm, 01/14/19 9:07:00 EDT, Height Start [...] 0 Refills, Maintenance, 08/23/19 10:22:00 EST, Tablet, [facility] #[id number], 180, cm, 01/14/19 9:07:00 EDT, Height Start Date: 08/23/19 Stop Date: 08/27/19 Status: Ordered ProAir HFA 90 mcg/inh inhalation aerosol with adapter 2, puffs, Inhalation, Every 4 hours, PRN, j44.9, # 1 each, Refills 11, Tot. Refills 11, Maintenance, 08/04/20 13:07:00 EST, Aerosol, [id number][id number], J 44.9, 180, cm, 01/14/19 9:07:00 EDT... Start Date: 08/04/20 Status: Ordered ProAir RespiClick 90 mcg/inh inhalation powder See Instructions, # 1 each, Refills 11 Tot. Refills 11, inhale 2 puffs by mouth every 4 hours if needed, [facility] Start Date: 12/27/18 Status: Ordered Protonix 40 mg oral delayed release tablet 1 tablet = 40 mg, By Mouth, 2 times a day, # 60 tablet, 3 Refills, Maintenance, 12/19/17 10:25:00 EDT Start Date: 12/19/17 Status: Ordered Spiriva HandiHaler 18 mcg inhalation capsule 1 capsule = 18 mcg, Inhalation, Daily, # 30 capsule, 11 Refills, Maintenance, 08/04/20 13:07:00 EST, [facility] #[id number], Partial fill upon patient request if the [...]
--- OUTSIDE RECORDS SUMMARY | 2024-04-02 09:44 | XMS_ITS | Continuity of Care Document ---
Author Organization [facility] Address [address] [place] [address]- Care Team Providers Care Management Advisor Name Role Phone Isaias HOLLIS, Fernando Norris Primary Care Physician Encounter [facility] [place] Date(s): 10/22/21 - 02/19/22 [facility] Medicine [address] [place] [address] [address] [place] [address]- Attending Physician: Myah Monroe MD Admitting Physician: Myah Monroe MD Referring Physician: Fernando Esparza NP Allergies, Adverse Reactions, Alerts No Known Allergies Medications albuterol 0.083% inhalation solution 3 mL = 2.5 mg, Inhalation, Every 6 hours, PRN Wheezing/Shortness of Breath, J44.9, # 360 mL, 5 Refills, Maintenance, 01/31/21 13:08:00 EDT, Solution, [facility] #[id number], Partial fill upon patient request if the [...] 1 Refills, Soft Stop, 11/06/20 15:12:00 EDT, [facility][id number], Partial fill upon patient request if the prescription is for a schedule IIopioid drug., 180, cm, 09/07/20 12:38:00 EST, Height Start Date: 11/06/20 Status: Ordered Breo Ellipta 100 mcg-25 mcg/inh inhalation powder 1 puffs, Inhalation, Daily, # 1 each, 11 Refills, Maintenance, 08/04/20 13:07:00 EST, Powder, [facility] #[id number], 1 puffs Inhalation Daily,x30 days, 180, cm, [...] 08/23/19 10:23:00 EST, Route to Pharmacy Electronically, [facility] #[id number], 180, cm, 01/14/19 9:07:00 EDT, Height Start Date: 08/23/19 Stop Date: 08/30/19 Status: Ordered Incruse Ellipta 62.5 mcg/inh inhalation powder 1 each, Inhalation, Every 24 hours, doses should be taken at least 24 hours apart, replaces Spiriva, # 30 each, 5 Refills, Maintenance, 03/29/21 14:03:00 EDT, Powder, [facility] #[id number], COPD j44.9, 180, cm, 09/07/20 12:38:00 EST, [...] 0 Refills, Maintenance, 08/23/19 10:22:00 EST, Tablet, [facility] #[id number], 180, cm, 01/14/19 9:07:00 EDT, Height Start Date: 08/23/19 Stop Date: 08/27/19 Status: Ordered ProAir HFA 90 mcg/inh inhalation aerosol with adapter 2, puffs, Inhalation, Every 4 hours, PRN, j44.9, # 1 each, Refills 5, Tot. Refills 5, Maintenance, 11/06/20 14:15:00 EDT, Aerosol, Route to Pharmacy Electronically, [id number], [facility] #[id number], J 44.9, 180, cm, 09/07/20 12:38:00 EST,... Start Date: 11/06/20 Status: Ordered ProAir RespiClick 90 mcg/inh inhalation powder See Instructions, # 1 each, Refills 11 Tot. Refills 11, inhale 2 puffs by mouth every 4 hours if needed, [facility] Start Date: 12/27/18 Status: Ordered Protonix 40 [...]
--- OUTSIDE RECORDS SUMMARY | 2024-04-02 09:44 | XMS_ITS | Continuity of Care Document ---
Author Organization [facility] Address [address] [place] [address]- Care Team Providers Care Vehicle Dynamics Engineer Name Role Phone Isaias HOLLIS, Fernando Norris Primary Care Physician [phone] Encounter [facility] [place] Date(s): 10/06/23 - 11/05/23 [facility] [address] [place] [address] Allergies, Adverse Reactions, Alerts No Known Allergies Medications albuterol 0.083% inhalation solution 3 mL = 2.5 mg, Inhalation, Every 6 hours, PRN for wheezing/shortness of breath, # 180 mL, 11 Refills, Maintenance, 01/03/23 8:21:00 EDT, Solution, [facility] #[id number], copd j44.9, 180, cm, 01/03/23 8:06:00 EDT, [...] Refills, Soft Stop, 11/06/20 15:12:00 EDT, Tablet, [facility] #[id number], Partial fill upon patient request if the prescription is for a schedule IIopioid drug., 180, cm, 09/07/20 12:38:00 EST, Height Start Date: 11/06/20 Status: Ordered Azithromycin 5 Day Dose Pack 250 mg oral tablet 1 pack/packet, By Mouth, Once, as directed on package labeling, # 6 tablet, 0 Refills, Soft Stop, 03/22/23 14:15:00 EDT, Tablet, [facility] #[id number], Partial fill upon patient request if the prescription is for a schedule II opioid drug., 180,... Start Date: 03/22/23 Status: Ordered Breo Ellipta 100 mcg-25 mcg/inh inhalation powder 1 puffs, Inhalation, Daily, # 1 each, 11 Refills, Maintenance, 01/03/23 8:20:00 EDT, Powder, [facility] #[id number], copd j44.9, 1 puffs Inhalation Daily,x30 days, [...] 08/23/19 10:23:00 EST, Route to Pharmacy Electronically, [facility] #[id number], 180, cm, 01/14/19 9:07:00 EDT, Height Start Date: 08/23/19 Stop Date: 08/30/19 Status: Ordered Incruse Ellipta 62.5 mcg/inh inhalation powder 1 each, Inhalation, Every 24 hours, doses should be taken at least 24 hours apart, # 30 each, 11 Refills, Maintenance, 01/03/23 8:20:00 EDT, Powder, [facility] #[id number], copd j44.9, 180, cm, 01/03/23 8:06:00 EDT, [...] 0 Refills, Maintenance, 08/23/19 10:22:00 EST, Tablet, [facility] #[id number], 180, cm, 01/14/19 9:07:00 EDT, Height Start [...] Reference Physician Member Role: PCP Address: Address: [address] [place] [address]- Care Team Related Persons Name: ZARINA CAVAZOS Address: [place] [address] Name: MARCO A RAUSCH Address: home [address] [address] Name: CONCHITA GUZMAN Name: VÍCTOR DONG Address: home [address] [place] [address]
--- OUTSIDE RECORDS SUMMARY | 2024-04-02 09:44 | XMS_ITS | Continuity of Care Document ---
Author Organization [facility] Address [address] [place] [address]- Care Team Providers Care Database Design Analyst Name Role Phone Isaias HOLLIS, Fernando Norris Primary Care Physician [place] [facility] [place] 03/22/20 [facility] [address] [place] [address]- [facility] Attending Physician: Yury Junior MD Admitting Physician: Yury Junior MD Referring Physician: Not on Staff, Referring MD Allergies, Adverse Reactions, Alerts Substance Reaction [...] Daily, # 30 tablet, 0 Refills, Maintenance, 01/15/18 0:05:53, Tablet Start Date: 07/31/17 Stop Date: 08/30/17 Status: Ordered Flomax 0.4 mg oral capsule 0.4 mg, 1, capsule, By Mouth, Daily, # 7 capsule, Refills 0, Tot. Refills 0, Maintenance, 08/23/19 10:23:00 EST, Route to Pharmacy Electronically, [facility] #[id number], 180, cm, 01/14/19 9:07:00 EDT, Height Start [...] 0 Refills, Maintenance, 08/23/19 10:22:00 EST, Tablet, [facility] #[id number], 180, cm, 01/14/19 9:07:00 EDT, Height Start Date: 08/23/19 Stop Date: 08/27/19 Status: Ordered ProAir HFA 90 mcg/inh inhalation aerosol with adapter 2, puffs, Inhalation, Every 4 hours, PRN, j44.9, # 1 each, Refills 11, Tot. Refills 11, Maintenance, 01/31/20 12:22:00 EDT, Aerosol, [id number][id number], J 44.9, 180, cm, 01/14/19 9:07:00 EDT... Start Date: 01/31/20 Status: Ordered ProAir RespiClick 90 mcg/inh inhalation powder See Instructions, # 1 each, Refills 11 Tot. Refills 11, inhale 2 puffs by mouth every 4 hours if needed, [facility] Start Date: 12/27/18 Status: Ordered Protonix 40 [...]
--- OUTSIDE RECORDS SUMMARY | 2024-04-02 09:44 | XMS_ITS | Continuity of Care Document ---
Author Organization [facility] Address [address] [place] [address]- Care Team Providers Care Engine House Helper Name Role Phone Isaias HOLLIS, Fernando Norris Primary Care Physician En[place] [facility] [id number] Date(s): 01/10/23 - 03/05/[address] [address] Attending Physician: Tim Faust MD Admitting Physician: Tim Faust MD Referring Physician: Fernando Esparza NP Allergies, Adverse Reactions, Alerts No Known Allergies Medications albuterol 0.083% inhalation solution 3 mL = 2.5 mg, Inhalation, Every 6 hours, PRN for wheezing/shortness of breath, # 180 mL, 11 Refills, Maintenance, 01/03/23 8:21:00 EDT, Solution, [facility] #[id number], copd j44.9, 180, cm, 01/03/23 8:06:00 EDT, [...] 1 Refills, Soft Stop, 11/06/20 15:12:00 EDT, [facility] #[id number], Partial fill upon patient request if the prescription is for a schedule IIopioid drug., 180, cm, 09/07/20 12:38:00 EST, Height Start Date: 11/06/20 Status: Ordered Breo Ellipta 100 mcg-25 mcg/inh inhalation powder 1 puffs, Inhalation, Daily, # 1 each, 11 Refills, Maintenance, 01/03/23 8:20:00 EDT, Powder, [facility] #[id number], copd j44.9, 1 puffs Inhalation Daily,x30 days, [...] 08/23/19 10:23:00 EST, Route to Pharmacy Electronically, [facility] #[id number], 180, cm, 01/14/19 9:07:00 EDT, Height Start Date: 08/23/19 Stop Date: 08/30/19 Status: Ordered Incruse Ellipta 62.5 mcg/inh inhalation powder 1 each, Inhalation, Every 24 hours, doses should be taken at least 24 hours apart, # 30 each, 11 Refills, Maintenance, 01/03/23 8:20:00 EDT, Powder, [facility] #[id number], copd j44.9, 180, cm, 01/03/23 8:06:00 EDT, [...] 0 Refills, Maintenance, 08/23/19 10:22:00 EST, Tablet, [facility] #[id number], 180, cm, 01/14/19 9:07:00 EDT, Height Start [...] hours if needed, [facility] Start Date: 12/27/18 Status: Ordered Protonix [...] Reference Physician Member Role: PCP Address: Address: [address] [place] [address]- Care Team Related Persons Name: ZARINA CAVAZOS Address: [place] [address] Name: MARCO A RAUSCH Address: home [address] [place] [address] Name: CONCHITA GUZMAN Name: VÍCTOR DONG Address: home [address] [place] [address]
--- OUTSIDE RECORDS SUMMARY | 2024-04-02 09:44 | XMS_ITS | Continuity of Care Document ---
Author Organization [facility] Address [address] [place] [address]- Care Team Providers Care Upholstery Trimmer Name Role Phone Isaias HOLLIS, Fernando Norris Primary Care Physician [phone] [place] [facility] [place] 12/06/20 [facility] [address] [place] [address]- Allergies, Adverse Reactions, Alerts Substance Reaction Severity Status NKA Active Medications albuterol 0.083% inhalation solution 3 mL = 2.5 mg, Inhalation, Every 6 hours, PRN Wheezing/Shortness of Breath, J44.9, # 360 mL, 5 Refills, Maintenance, 01/31/21 13:08:00 EDT, [facility] #[id number], Partial fill upon patient request if the prescription is for a schedule... Start Date: 01/31/21 Stop Date: 07/30/21 Status: Ordered albuterol 0.083% inhalation solution 3 mL = 2.5 mg, Inhalation, Every 6 hours, PRN Wheezing/Shortness of Breath, for 30 days, # 180 mL, 5 Refills, Hard Stop 01/31/21 13:08:00 EDT, 08/04/20 13:08:00 EST, [facility] #[id number], Partial fill upon patient request if the [...] Refills, Soft Stop, 11/06/20 15:12:00 EDT, Tablet, [facility] #[id number], Partial fill upon patient request if the prescription is for a schedule IIopioid drug., 180, cm, 09/07/20 12:38:00 EST, Height Start Date: 11/06/20 Status: Ordered Breo Ellipta 100 mcg-25 mcg/inh inhalation powder 1 puffs, Inhalation, Daily, # 1 each, 11 Refills, Maintenance, 08/04/20 13:07:00 EST, Powder, [facility] #[id number], 1 puffs Inhalation Daily,x30 days, 180, cm, [...] 08/23/19 10:23:00 EST, Route to Pharmacy Electronically, [facility] #[id number], 180, cm, 01/14/19 9:07:00 EDT, Height Start [...] 0 Refills, Maintenance, 08/23/19 10:22:00 EST, Tablet, [facility] #[id number], 180, cm, 01/14/19 9:07:00 EDT, Height Start Date: 08/23/19 Stop Date: 08/27/19 Status: Ordered predniSONE 5 mg oral tablet 1 tablet = 5 mg, By Mouth, Daily, 4 tabs daily reduce by 1 tab every 3 days (or if wheezing resolved, every 2 days), # 30 tablet, 0 Refills, Acute 04/25/21 15:12:00 EDT, 11/06/20 15:12:00 EDT, [facility] #[id number], Partial fill upon patient req... Start Date: 11/06/20 Stop Date: 04/25/21 Status: Ordered ProAir HFA 90 mcg/inh inhalation aerosol with adapter 2, puffs, Inhalation, Every 4 hours, PRN, j44.9, # 1 each, Refills 5, Tot. Refills 5, Maintenance, 11/06/20 14:15:00 EDT, Aerosol, Route to Pharmacy Electronically, [id number], [facility] #[id number], J 44.9, 180, cm, 09/07/20 12:38:00 EST,... Start Date: 11/06/20 Status: Ordered ProAir RespiClick 90 mcg/inh inhalation powder See Instructions, # 1 each, Refills 11 Tot. Refills 11, inhale 2 puffs by mouth every 4 hours if needed, [facility] Start Date: 12/27/18 Status: Ordered Protonix 40 mg oral delayed release tablet 1 tablet = 40 mg, By Mouth, 2 times a day, # 60 tablet, 3 Refills, Maintenance, 12/19/17 10:25:00 EDT Start Date: 12/19/17 Status: Ordered Spiriva HandiHaler 18 mcg inhalation capsule 1 capsule = 18 mcg, Inhalation, Daily, # 30 capsule, 11 Refills, Maintenance, 08/04/20 13:07:00 EST, [facility] #[id number], Partial fill upon patient request if the [...]
--- OUTSIDE RECORDS SUMMARY | 2024-04-02 09:45 | XMS_ITS | Continuity of Care Document ---
Author Organization [facility] Address [address] [place] [address] [address] [place] [address]- Care Team Providers Care Ergonomics Engineer Name Role Phone Isaias HOLLIS, Fernando Norris Primary Care Physician Encounter [facility] [place] Date(s): 10/06/23 - 11/05/23 [facility] [address] [place] [address] [address] [place], [place] [address] Allergies, Adverse Reactions, Alerts No Known Allergies Medications albuterol 0.083% inhalation solution 3 mL = 2.5 mg, Inhalation, Every 6 hours, PRN for wheezing/shortness of breath, # 180 mL, 11 Refills, Maintenance, 01/03/23 8:21:00 EDT, Solution, [facility] #[id number], copd j44.9, 180, cm, 01/03/23 8:06:00 EDT, [...] Refills, Soft Stop, 11/06/20 15:12:00 EDT, Tablet, [facility] #[id number], Partial fill upon patient request if the prescription is for a schedule IIopioid drug., 180, cm, 09/07/20 12:38:00 EST, Height Start Date: 11/06/20 Status: Ordered Azithromycin 5 Day Dose Pack 250 mg oral tablet 1 pack/packet, By Mouth, Once, as directed on package labeling, # 6 tablet, 0 Refills, Soft Stop, 03/22/23 14:15:00 EDT, Tablet, [facility] #[id number], Partial fill upon patient request if the prescription is for a schedule II opioid drug., 180,... Start Date: 03/22/23 Status: Ordered Breo Ellipta 100 mcg-25 mcg/inh inhalation powder 1 puffs, Inhalation, Daily, # 1 each, 11 Refills, Maintenance, 01/03/23 8:20:00 EDT, Powder, [facility] #83054, copd j44.9, 1 puffs Inhalation Daily,x30 days, [...] 08/23/19 10:23:00 EST, Route to Pharmacy Electronically, [facility] #[id number], 180, cm, 01/14/19 9:07:00 EDT, Height Start Date: 08/23/19 Stop Date: 08/30/19 Status: Ordered Incruse Ellipta 62.5 mcg/inh inhalation powder 1 each, Inhalation, Every 24 hours, doses should be taken at least 24 hours apart, # 30 each, 11 Refills, Maintenance, 01/03/23 8:20:00 EDT, Powder, [facility] #[id number], copd j44.9, 180, cm, 01/03/23 8:06:00 EDT, [...] 0 Refills, Maintenance, 08/23/19 10:22:00 EST, Tablet, [facility] #[id number], 180, cm, 01/14/19 9:07:00 EDT, Height Start [...] hours if needed, [facility] Start Date: 12/27/18 Status: Ordered Protonix 40 [...] Reference Physician Member Role: PCP Address: Address: [address] [place] [address]- Care Team Related Persons Name: ZARINA CAVAZOS Address: [place] [address] Name: MARCO A RAUSCH Address: home [address] [address] Name: CONCHITA GUZMAN Name: VÍCTOR DONG Address: home [address] [place] [address]
--- OUTSIDE RECORDS SUMMARY | 2024-04-02 09:45 | XMS_ITS | Continuity of Care Document ---
Author Organization [facility] Address [address] [place] [address] [address] [place] [address]- Care Team Providers Care Pipeline Dispatch Operator Name Role Phone Isaias HOLLIS, Fernando Norris Primary Care Physician [phone] Encounter [facility] [place] Date(s): 12/03/20 - 01/02/21 [facility] [address] [place] [address] [address] [place], [place] [address] Attending Physician: Admtr, Ar8 Admitting Physician: Admtr, Ar8 Referring Physician: Admtr, Ar8 Allergies, Adverse Reactions, Alerts Substance Reaction Severity Status NKA Active Medications albuterol 0.083% inhalation solution 3 mL = 2.5 mg, Inhalation, Every 6 hours, PRN Wheezing/Shortness of Breath, J44.9, # 360 mL, 5 Refills, Maintenance, 01/31/21 13:08:00 EDT, [facility] #[id number], Partial fill upon patient request if the prescription is for a schedule... Start Date: 01/31/21 Stop Date: 07/30/21 Status: Ordered albuterol 0.083% inhalation solution 3 mL = 2.5 mg, Inhalation, Every 6 hours, PRN Wheezing/Shortness of Breath, for 30 days, # 180 mL, 5 Refills, Hard Stop 01/31/21 13:08:00 EDT, 08/04/20 13:08:00 EST, [facility] #[id number], Partial fill upon patient request if the [...] Refills, Soft Stop, 11/06/20 15:12:00 EDT, Tablet, [facility] #[id number], Partial fill upon patient request if the prescription is for a schedule IIopioid drug., 180, cm, 09/07/20 12:38:00 EST, Height Start Date: 11/06/20 Status: Ordered Breo Ellipta 100 mcg-25 mcg/inh inhalation powder 1 puffs, Inhalation, Daily, # 1 each, 11 Refills, Maintenance, 08/04/20 13:07:00 EST, Powder, [facility] #99392, 1 puffs Inhalation Daily,x30 days, 180, cm, [...] 08/23/19 10:23:00 EST, Route to Pharmacy Electronically, [facility] #[id number], 180, cm, 01/14/19 9:07:00 EDT, Height Start [...] 0 Refills, Maintenance, 08/23/19 10:22:00 EST, Tablet, [facility] #[id number], 180, cm, 01/14/19 9:07:00 EDT, Height Start Date: 08/23/19 Stop Date: 08/27/19 Status: Ordered predniSONE 5 mg oral tablet 1 tablet = 5 mg, By Mouth, Daily, 4 tabs daily reduce by 1 tab every 3 days (or if wheezing resolved, every 2 days), # 30 tablet, 0 Refills, Acute 04/25/21 15:12:00 EDT, 11/06/20 15:12:00 EDT, [facility] #[id number], Partial fill upon patient req... Start Date: 11/06/20 Stop Date: 04/25/21 Status: Ordered ProAir HFA 90 mcg/inh inhalation aerosol with adapter 2, puffs, Inhalation, Every 4 hours, PRN, j44.9, # 1 each, Refills 5, Tot. Refills 5, Maintenance, 11/06/20 14:15:00 EDT, Aerosol, Route to Pharmacy Electronically, KSPDP_[id number], [facility] #[id number], J 44.9, 180, cm, 09/07/20 12:38:00 EST,... Start Date: 11/06/20 Status: Ordered ProAir RespiClick 90 mcg/inh inhalation powder See Instructions, # 1 each, Refills 11 Tot. Refills 11, inhale 2 puffs by mouth every 4 hours if needed, [facility] Start Date: 12/27/18 Status: Ordered Protonix 40 mg oral delayed release tablet 1 tablet = 40 mg, By Mouth, 2 times a day, # 60 tablet, 3 Refills, Maintenance, 12/19/17 10:25:00 EDT Start Date: 12/19/17 Status: Ordered Spiriva HandiHaler 18 mcg inhalation capsule 1 capsule = 18 mcg, Inhalation, Daily, # 30 capsule, 11 Refills, Maintenance, 08/04/20 13:07:00 EST, [facility] #[id number], Partial fill upon patient request if the [...]
--- OUTSIDE RECORDS SUMMARY | 2024-04-02 09:45 | XMS_ITS | Continuity of Care Document ---
Author Organization [facility] ter Address [address] [place] [address]- Care Team Providers Care Disaster Or Damage Control Specialist Name Role Phone Isaias HOLLIS, Fernando Norris Primary Care Physician [phone] [place] [facility] [place](s[place] 08/23/19 - 08/23/[address] [address]- [facility] Encounter Diagnosis Kidney stone(Final) - 08/23/19 Discharge Disposition: A-D/C Home Attending Physician: Luis Ghosh MD Admitting Physician: Luis Ghosh MD Referring Physician: Not on Staff, Referring [...] 08/23/19 10:23:00 EST, Route to Pharmacy Electronically, [facility] #[id number], 180, cm, 01/14/19 9:07:00 EDT, Height Start Date: 08/23/19 Stop Date: 08/30/19 Status: Ordered ibuprofen 400 mg oral tablet 400 mg, 1, tablet, By Mouth, Every 8 hours, for 10 days, # 30 tablet, Refills 0, Tot. Refills 0, Acute 09/02/19 10:23:00 EST, 08/23/19 10:23:00 EST, Route to Pharmacy Electronically, [facility] #[id number], 180, cm, 01/14/19 9:07:00 EDT, Height Start Date: 08/23/19 Stop Date: 09/02/19 Status: Ordered MiraLax oral powder for reconstitution = 17 Gm, By Mouth, 2 times a day, for 7 days, dissolve in water before taking, # 255 Gm, 0 Refills,Acute 08/30/19 10:23:00 EST, 08/23/19 10:23:00 EST, REC Powder, [facility] #[id number], 17 Gm By Mouth 2 times a day,x7 days,Instr:dissolve in efrain... Start Date: 08/23/19 Stop Date: 08/30/19 Status: Ordered ondansetron 4 mg oral tablet 1 tablet = 4 mg, By Mouth, Every 8 hours, # 12 tablet, 0 Refills, Maintenance, 08/23/19 10:22:00 EST, Tablet, [facility] #04676, 180, cm, 01/14/19 9:07:00 EDT, Height Start Date: 08/23/19 Stop Date: 08/27/19 Status: Ordered oxyCODONE 5 mg oral capsule 1 capsule = 5 mg, By Mouth, Every 8 hours, PRN as needed for pain, for 2 days, # 6 capsule, 0 Refills, Acute 08/25/19 10:24:00 EST, 08/23/19 10:24:00 EST, Capsule, [email or web address] #[id number], Partial fill upon patient request, 180, cm, 01/14/19 9:07:... Start Date: 08/23/19 Stop Date: 08/25/19 Status: Ordered ProAir HFA 90 mcg/inh inhalation aerosol with adapter 2, puffs, Inhalation, Every 4 hours, PRN, # 1 each, Refills 11, Tot. Refills 11, Maintenance, 12/27/18 13:40:00 EDT, Aerosol, [id number], J 44.9 Start Date: 12/27/18 [...] with COPD(Confirmed) Active Dysphagia(Confirmed) Active Odynophagia(Confirmed) Active Vital Signs Most recent to oldest [Reference Range]: 1 2 3 Oxygen Saturation [94-100 %] 98 % (08/23/19 10:18 AM) 96 % (08/23/19 7:59 AM) 97 % (08/23/19 5:46 AM) Pulse Rate [55-90 bpm] 84 bpm (08/23/19 10:18 AM) 98 bpm *H* (08/23/19 7:59 AM) 90 bpm (08/23/19 5:46 AM) Blood Pressure [90-138/55-84 mm Hg] 144/85mm Hg *H* (08/23/19 10:18 AM) 141/87mm Hg *H* (08/23/19 7:59 AM) 144/78mm Hg *H* (08/23/19 5:46 AM) Respiratory Rate [16-30 br/min] 16 br/min (08/23/19 10:18 AM) 16 br/min (08/23/19 8:59 AM) 16 br/min (08/23/19 8:29 AM) Temperature [96.8-100.4 DegF] 98.0 DegF (08/23/19 2:38 AM) Mode of Delivery (Oxygen) Room air (08/23/19 10:18 AM) Room air (08/23/19 7:59 AM) Room air (08/23/19 5:46 AM) Temperature Route Oral (08/23/19 2:38 AM) Social History Social History Type Response Smoking Status Former smoker; Tobac co user in household: No; Other: quit smoking 2009; entered on: 08/24/15 Sex
--- OUTSIDE RECORDS SUMMARY | 2024-04-02 09:45 | XMS_ITS | Continuity of Care Document ---
Author Organization [facility] Address [address] [place] [address] [address] [place] [address]- Care Team Providers Care Specimen Accessioner Name Role Phone Isaias HOLLIS, Fernando Norris Primary Care Physician [place] [facility] [place] 09[place]12[place]20 [facility] [address] [place] [address] [address] [place], [place] [address] Attending Physician: Admtr, Sondra Admitting Physician: Admtr, Ar8 Referring Physician: Admtr, Ar8 Allergies, Adverse Reactions, Alerts Substance Reaction Severity Status NKA Active Medications albuterol 0.083% inhalation solution 3 mL = 2.5 mg, Inhalation, Every 6 hours, PRN Wheezing/Shortness of Breath, # 180 mL, 5 Refills, Maintenance, 08/04/20 13:08:00 EST, Solution, [facility] #[id number], Partial fill upon patient request if the [...] Refills, Soft Stop, 09/07/20 13:15:00 EST, Tablet, [facility] #[id number], Partial fill upon patient request if the prescription is for a schedule IIopioid drug., 180, cm, 09/07/20 12:38:00 EST, Height Start Date: 09/07/20 Status: Ordered Breo Ellipta 100 mcg-25 mcg/inh inhalation powder 1 puffs, Inhalation, Daily, # 1 each, 11 Refills, Maintenance, 08/04/20 13:07:00 EST, Powder, [facility] #[id number], 1 puffs Inhalation Daily,x30 days, 180, cm, [...] 08/23/19 10:23:00 EST, Route to Pharmacy Electronically, [facility] #[id number], 180, cm, 01/14/19 9:07:00 EDT, Height Start [...] 0 Refills, Maintenance, 08/23/19 10:22:00 EST, Tablet, [facility] #[id number], 180, cm, 01/14/19 9:07:00 EDT, Height Start Date: 08/23/19 Stop Date: 08/27/19 Status: Ordered predniSONE 10 mg oral tablet See Instructions, take 4 tabl for 2 days, then 3 for 2 d, then 2 for 2 d, then 1 for 2 d, with food, # 20 tablet, 0 Refills, Acute 09/15/20 13:13:00 EST, 09/07/20 13:13:00 EST, [facility] #55825, Partial fill upon patient request if the p... Start Date: 09/07/20 Stop Date: 09/15/20 Status: Ordered ProAir HFA 90 mcg/inh inhalation aerosol with adapter 2, puffs, Inhalation, Every 4 hours, PRN, j44.9, # 1 each, Refills 11, Tot. Refills 11, Maintenance, 08/04/20 13:07:00 EST, Aerosol, [id number] #[id number], J 44.9, 180, cm, 01/14/19 9:07:00 EDT... Start Date: 08/04/20 Status: Ordered ProAir RespiClick 90 mcg/inh inhalation powder See Instructions, # 1 each, Refills 11 Tot. Refills 11, inhale 2 puffs by mouth every 4 hours if needed, [facility] Start Date: 12/27/18 Status: Ordered Protonix 40 mg oral delayed release tablet 1 tablet = 40 mg, By Mouth, 2 times a day, # 60 tablet, 3 Refills, Maintenance, 12/19/17 10:25:00 EDT Start Date: 12/19/17 Status: Ordered Spiriva HandiHaler 18 mcg inhalation capsule 1 capsule = 18 mcg, Inhalation, Daily, # 30 capsule, 11 Refills, Maintenance, 08/04/20 13:07:00 EST, [facility] #[id number], Partial fill upon patient request if the [...]
--- OUTSIDE RECORDS SUMMARY | 2024-04-02 09:45 | XMS_ITS | Continuity of Care Document ---
Author Organization [facility] Address [address] [place] [address]- Care Team Providers Care Tool Trouble Shooter Name Role Phone Isaias HOLLIS, Fernando Norris Primary Care Physician Encounter [facility] [place] Date(s): 03/12/20 - 04/11/20 [facility] [address] [place] [address]- [facility] Attending Physician: AdmSondra snider Admitting Physician: AdmtrSondra Referring Physician: Admtr, Ar8 Allergies, Adverse Reactions, [...] 08/23/19 10:23:00 EST, Route to Pharmacy Electronically, [facility] #[id number], 180, cm, 01/14/19 9:07:00 EDT, Height Start [...] 0 Refills, Maintenance, 08/23/19 10:22:00 EST, Tablet, [facility] #[id number], 180, cm, 01/14/19 9:07:00 EDT, Height Start Date: 08/23/19 Stop Date: 08/27/19 Status: Ordered ProAir HFA 90 mcg/inh inhalation aerosol with adapter 2, puffs, Inhalation, Every 4 hours, PRN, j44.9, # 1 each, Refills 11, Tot. Refills 11, Maintenance, 01/31/20 12:22:00 EDT, Aerosol, Route to Pharmacy Electronically, [id number], [facility] #[id number], J 44.9, 180, cm, 01/14/19 9:07:00 EDT... Start Date: 01/31/20 Status: Ordered ProAir RespiClick 90 mcg/inh inhalation powder See Instructions, # 1 each, Refills 11 Tot. Refills 11, inhale 2 puffs by mouth every 4 hours if needed, [facility] Start Date: 12/27/18 Status: Ordered Protonix 40 [...]
--- OUTSIDE RECORDS SUMMARY | 2024-04-02 09:45 | XMS_ITS | Continuity of Care Document ---
Author Organization [facility] ter Address [address] [place] [address]- Care Team Providers Care Automatic Spinning Lathe Setter Name Role Phone Isaias HOLLIS, Fernando Norris Primary Care Physician [phone] [place]counter [facility] [id number] Date(s): 11/22/23 - 01/13/[address] [id number] Attending Physician: Alex Warren MD Admitting Physician: Alex Warren MD Referring Physician: Myah Monroe MD Allergies, Adverse Reactions, Alerts No Known Allergies Medications albuterol 0.083% inhalation solution 3 mL = 2.5 mg, Inhalation, Every 6 hours, PRN for wheezing/shortness of breath, # 180 mL, 11 Refills, Maintenance, 11/22/23 8:53:00 EDT, Solution, [facility] #[id number], copd j44.9, 180, cm, 11/22/23 8:32:00 EDT, [...] 1 Refills, Soft Stop, 11/06/20 15:12:00 EDT, [facility] #[id number], Partial fill upon patient request if the prescription is for a schedule IIopioid drug., 180, cm, 09/07/20 12:38:00 EST, Height Start Date: 11/06/20 Status: Ordered Azithromycin 5 Day Dose Pack 250 mg oral tablet 1 pack/packet, By Mouth, Once, as directed on package labeling, # 6 tablet, 0 Refills, Soft Stop, 03/22/23 14:15:00 EDT, Tablet, [facility] #[id number], Partial fill upon patient request if the prescription is for a schedule II opioid drug., 180,... Start Date: 03/22/23 Status: Ordered Breo Ellipta 100 mcg-25 mcg/inh inhalation powder 1 puffs, Inhalation, Daily, # 1 each, 11 Refills, Maintenance, 11/22/23 8:53:00 EDT, Powder, [facility] #[id number], copd j44.9, 1 puffs Inhalation Daily,x30 days, [...] 08/23/19 10:23:00 EST, Route to Pharmacy Electronically, [facility] #[id number], 180, cm, 01/14/19 9:07:00 EDT, Height Start Date: 08/23/19 Stop Date: 08/30/19 Status: Ordered Incruse Ellipta 62.5 mcg/inh inhalation powder 1 each, Inhalation, Every 24 hours, doses should be taken at least 24 hours apart, # 30 each, 11 Refills, Maintenance, 11/22/23 8:53:00 EDT, Powder, [facility] #[id number], copd j44.9, 180, cm, 11/22/23 8:32:00 EDT, [...] 0 Refills, Maintenance, 08/23/19 10:22:00 EST, Tablet, [facility] #63401, 180, cm, 01/14/19 9:07:00 EDT, Height Start [...] or A7037 Tubing A7038 or A7039 Filters N7945Rifi strap A7046 Humidifier Chamber A7035 H... Start Date: 11/22/23 Status: Ordered ProAir HFA 90 mcg/inh inhalation aerosol with adapter 2, puffs, Inhalation, Every 6 hours, PRN, # 8.5 Gm, Refills 11, Tot. Refills 11, Maintenance, 11/22/23 8:54:00 EDT, Aerosol, Route to Pharmacy Electronically, NCPDP_[id number], [facility] #[id number], copd j44.9, 180, cm, 11/22/23 8:32:00 EDT, He... Start Date: 11/22/23 Stop Date: 11/16/24 Status: Ordered ProAir RespiClick 90 mcg/inh inhalation powder See Instructions, # 1 each, Refills 11 Tot. Refills 11, inhale 2 puffs by mouth every 4 hours if needed, [facility] Start Date: 12/27/18 Status: Ordered [...] List Condition Confirmation Course Effective Dates Status [facility] Informant Chronic cough Confirmed Active [...] Physician Member Role: PCP Address: Address: [address] [place] [address]- Care Team Related Persons Name: ZARINA CAVAZOS Address: [place] [address] Name: MARCO A RAUSCH Address: home [address] [place] [address] Name: CONCHITA GUZMAN Name: VÍCTOR DONG Address: [address] [address]
--- OUTSIDE RECORDS SUMMARY | 2024-04-02 09:45 | XMS_ITS | Continuity of Care Document ---
Author Organization [facility] Address [address] [place] [address]- Care Team Providers Care Boom Stick Man Name Role Phone Isaias HOLLIS, Fernando Norris Primary Care Physician [place] [facility] [place]23 [facility] [address] [place] [id number] Allergies, Adverse Reactions, Alerts No Known Allergies Medications albuterol 0.083% inhalation solution 3 mL = 2.5 mg, Inhalation, Every 6 hours, PRN for wheezing/shortness of breath, # 180 mL, 11 Refills, Maintenance, 01/03/23 8:21:00 EDT, Solution, [facility] #[id number], copd j44.9, 180, cm, 01/03/23 8:06:00 EDT, [...] Refills, Soft Stop, 11/06/20 15:12:00 EDT, Tablet, [facility] #[id number], Partial fill upon patient request if the prescription is for a schedule IIopioid drug., 180, cm, 09/07/20 12:38:00 EST, Height Start Date: 11/06/20 Status: Ordered Azithromycin 5 Day Dose Pack 250 mg oral tablet 1 pack/packet, By Mouth, Once, as directed on package labeling, # 6 tablet, 0 Refills, Soft Stop, 03/22/23 14:15:00 EDT, Tablet, [facility] #[id number], Partial fill upon patient request if the prescription is for a schedule II opioid drug., 180,... Start Date: 03/22/23 Status: Ordered Breo Ellipta 100 mcg-25 mcg/inh inhalation powder 1 puffs, Inhalation, Daily, # 1 each, 11 Refills, Maintenance, 01/03/23 8:20:00 EDT, Powder, [facility] #51596, copd j44.9, 1 puffs Inhalation Daily,x30 days, [...] 08/23/19 10:23:00 EST, Route to Pharmacy Electronically, [facility] #[id number], 180, cm, 01/14/19 9:07:00 EDT, Height Start Date: 08/23/19 Stop Date: 08/30/19 Status: Ordered Incruse Ellipta 62.5 mcg/inh inhalation powder 1 each, Inhalation, Every 24 hours, doses should be taken at least 24 hours apart, # 30 each, 11 Refills, Maintenance, 01/03/23 8:20:00 EDT, Powder, [facility] #07869, copd j44.9, 180, cm, 01/03/23 8:06:00 EDT, [...] 0 Refills, Maintenance, 08/23/19 10:22:00 EST, Tablet, [facility] #[id number], 180, cm, 01/14/19 9:07:00 EDT, Height Start [...] hours if needed, [facility] Start Date: 12/27/18 Status: Ordered [...] Reference Physician Member Role: PCP Address: Address: [address] [place] [address]- Care Team Related Persons Name: ZARINA CAVAZOS Address: [place] [address] Name: MARCO A RAUSCH Address: home [address] [address] Name: CONCHITA GUZMAN Name: VÍCTOR DONG Address: home [address] [place] [address]
--- OUTSIDE RECORDS SUMMARY | 2024-04-02 09:45 | XMS_ITS | Continuity of Care Document ---
Author Organization [facility] Address [address] [place] [address]- Care Team Providers Care Folder Taper Operator Name Role Phone Isaias HOLLIS, Fernando Norris Primary Care Physician [phone] [place] [facility] [place]s): 02/21/20 - 03/22/20 [facility] [address] [place] [address] [facility] Attending Physician: Sondra Luna Admitting Physician: AdmtrSondra Referring Physician: Admtr, ArJay Allergies, Adverse Reactions, Alerts Substance Reaction Severity [...] 08/23/19 10:23:00 EST, Route to Pharmacy Electronically, [facility] #[id number], 180, cm, 01/14/19 9:07:00 EDT, Height Start [...] 0 Refills, Maintenance, 08/23/19 10:22:00 EST, Tablet, [facility] #[id number], 180, cm, 01/14/19 9:07:00 EDT, Height Start Date: 08/23/19 Stop Date: 08/27/19 Status: Ordered ProAir HFA 90 mcg/inh inhalation aerosol with adapter 2, puffs, Inhalation, Every 4 hours, PRN, j44.9, # 1 each, Refills 11, Tot. Refills 11, Maintenance, 01/31/20 12:22:00 EDT, Aerosol, [id number][id number], J 44.9, 180, cm, 01/14/19 9:07:00 EDT... Start Date: 01/31/20 Status: Ordered ProAir RespiClick 90 mcg/inh inhalation powder See Instructions, # 1 each, Refills 11 Tot. Refills 11, inhale 2 puffs by mouth every 4 hours if needed, [facility] Start Date: 12/27/18 Status: Ordered [...]
--- OUTSIDE RECORDS SUMMARY | 2024-04-02 09:45 | XMS_ITS | Continuity of Care Document ---
Author Organization [facility] Address [address] [place] [address]- Care Team Providers Care Buttermilk Drier Operator Name Role Phone Isaias HOLLIS, Fernando Norris Primary Care Physician [phone] [place] [facility] [place] 01/11/23 - 02/10/23 [facility] [address] [place] [id number] Allergies, Adverse Reactions, Alerts No Known Allergies Medications albuterol 0.083% inhalation solution 3 mL = 2.5 mg, Inhalation, Every 6 hours, PRN for wheezing/shortness of breath, # 180 mL, 11 Refills, Maintenance, 01/03/23 8:21:00 EDT, Solution, [facility] #78298, copd j44.9, 180, cm, 01/03/23 8:06:00 EDT, [...] 1 Refills, Soft Stop, 11/06/20 15:12:00 EDT, [facility] #[id number], Partial fill upon patient request if the prescription is for a schedule IIopioid drug., 180, cm, 09/07/20 12:38:00 EST, Height Start Date: 11/06/20 Status: Ordered Breo Ellipta 100 mcg-25 mcg/inh inhalation powder 1 puffs, Inhalation, Daily, # 1 each, 11 Refills, Maintenance, 01/03/23 8:20:00 EDT, Powder, [facility] #[id number], copd j44.9, 1 puffs Inhalation Daily,x30 days, [...] 08/23/19 10:23:00 EST, Route to Pharmacy Electronically, [facility] #[id number], 180, cm, 01/14/19 9:07:00 EDT, Height Start Date: 08/23/19 Stop Date: 08/30/19 Status: Ordered Incruse Ellipta 62.5 mcg/inh inhalation powder 1 each, Inhalation, Every 24 hours, doses should be taken at least 24 hours apart, # 30 each, 11 Refills, Maintenance, 01/03/23 8:20:00 EDT, Powder, [facility] #94589, copd j44.9, 180, cm, 01/03/23 8:06:00 EDT, [...] 0 Refills, Maintenance, 08/23/19 10:22:00 EST, Tablet, [facility] #[id number], 180, cm, 01/14/19 9:07:00 EDT, Height Start Date: 08/23/19 Stop Date: 08/27/19 Status: Ordered ProAir RespiClick 90 mcg/inh inhalation powder See Instructions, # 1 each, Refills 11 Tot. Refills 11, inhale 2 puffs by mouth every 4 hours if needed, [facility] Start Date: 12/27/18 Status: Ordered Protonix 40 [...] Reference Physician Member Role: PCP Address: Address: [address] [place] [id number] Care Team Related Persons Name: ZARINA CAVAZOS Address: [place] [address] Name: MARCO A RAUSCH Address: home [address] [place] [address] Name: CONCHITA GUZMAN Name: VÍCTOR DONG Address: home [address] [place] [address]
--- OUTSIDE RECORDS SUMMARY | 2024-04-02 09:45 | XMS_ITS | Continuity of Care Document ---
Author Organization [facility] Address [address] [place] [address]- Care Team Providers Care Ross Furnace Operator Name Role Phone Isaias HOLLIS, Fernando Norris Primary Care Physician [phone] Encounter [facility] Date(s): 07/31/20 - 08/30/20 [facility] [address] [place] [address]- Allergies, Adverse Reactions, Alerts Substance Reaction Severity Status NKA Active Medications albuterol 0.083% inhalation solution 3 mL = 2.5 mg, Inhalation, Every 6 hours, PRN Wheezing/Shortness of Breath, # 180 mL, 5 Refills, Maintenance, 08/04/20 13:08:00 EST, Solution, [facility] #[id number], Partial fill upon patient request if the [...] 11 Refills, Maintenance, 08/04/20 13:07:00 EST, Powder, [facility] #[id number], 1 puffs Inhalation Daily,x30 days, 180, cm, [...] 08/23/19 10:23:00 EST, Route to Pharmacy Electronically, [facility] #[id number], 180, cm, 01/14/19 9:07:00 EDT, Height Start [...] 0 Refills, Maintenance, 08/23/19 10:22:00 EST, Tablet, [facility] #[id number], 180, cm, 01/14/19 9:07:00 EDT, Height Start Date: 08/23/19 Stop Date: 08/27/19 Status: Ordered ProAir HFA 90 mcg/inh inhalation aerosol with adapter 2, puffs, Inhalation, Every 4 hours, PRN, j44.[place], # 1 each, Refills 11, Tot. Refills 11, Maintenance, 08/04/20 13:07:00 EST, Aerosol, Route to Pharmacy Electronically, [id number], [facility] #[id number], J 44.9, 180, cm, 01/14/19 9:07:00 EDT... Start Date: 08/04/20 Status: Ordered ProAir RespiClick 90 mcg/inh inhalation powder See Instructions, # 1 each, Refills 11 Tot. Refills 11, inhale 2 puffs by mouth every 4 hours if needed, [facility] Start Date: 12/27/18 Status: Ordered Protonix 40 mg oral delayed release tablet 1 tablet = 40 mg, By Mouth, 2 times a day, # 60 tablet, 3 Refills, Maintenance, 12/19/17 10:25:00 EDT Start Date: 12/19/17 Status: Ordered Spiriva HandiHaler 18 mcg inhalation capsule 1 capsule = 18 mcg, Inhalation, Daily, # 30 capsule, 11 Refills, Maintenance, 08/04/20 13:07:00 EST, [facility] #[id number], Partial fill upon patient request if the [...]
[2024-04-02 10:34] VITALS: BP 124/76; PULSE 77; RESP 19; TEMP 36.4; O2SAT 95; BMI 19.2
--- NOTE | 2024-04-02 10:37 | MHC.SHP ---
Pre-Procedural Eval Section A - 24 Hr Update-Section A only Date of Service: 04/02/24 Section B - Complete if H&P > 30 days Chief Complaint: Gastro-esophageal reflux disease without esophagit Details of Present Illness: dysphagia, colon screening Relevant Family History (Specify if Yes): No Relevant Social History: None Present Medications: see Short Stay Collaborative assessment Medical History: Significant History (DDD (degenerative disc disease), lumbar COPD (chronic obstructive pulmonary disease) Renal calculi Bladder cancer Bilateral cataracts Muscle pain High cholesterol Asthma GERD (gastroesophageal reflux disease)) History of Previous Operations: Relevant previous surgery/procedure and date(s) (History of carpal tunnel release History of testicular surgery Hx of lithotripsy History of esophagogastroduodenoscopy (EGD) H/O colonoscopy Hx of cystoscopy) Allergies: Allergies Allergy/AdvReac Type Severity Reaction Status Date / Time No Known Allergies Allergy Verified 12/06/23 10:53 [No Known Allergies*] Review of Systems Sugical H&P ROS: Negative: Constitution, Cardiovascular, Respiratory, Neurological, Psychiatric, Hem-Onc, Allergic/Immunologic, Gastrointestinal, Genitourinary, Musculoskeletal, Integumentary, Endocrine and Eyes/Ears/Nose/Throat Exam Surgical H&P Exam: Normal: HEENT, Normal: Heart, Normal: Lungs, Normal: Extremities, Normal: Abdomen, Normal: Skin and Normal: Neurological Plan Diagnosis/Plan: Unchanged I have reviewed the history and physical and performed a pertinent physical examination on my patient. No changes have occurred unless specified. Time Spent With Patient Time: Total time managing care of this patient today ____ minutes.
[2024-04-02] MEDS: Lactated Ringers 1,000 ML 100 ML IVCONT (10:47)
--- NOTE | 2024-04-02 12:03 | P.CONAN_ITS ---
COUNT INCLUDES THE [facility] Active Problems Active Problems: All Active Problems Loss of hearing (Acute) Dyslipidemia (Acute) Tinea (Acute) Cerumen impaction (Acute) Skin lesion (Acute) Nephrolithiasis (Acute) Bladder cancer (Acute) Bladder neoplasm of uncertain malignant potential (Acute) Abdominal pain (Acute) Hematemesis (Acute) Complaint of melena (Acute) Carpal tunnel syndrome of right wrist (Acute) Numbness of right hand (Acute) Abnormal MRI scan, arm (Acute) Right elbow pain (Acute) Right forearm pain (Acute) Right wrist pain (Acute) Screening for colon cancer (Acute) Screening PSA (prostate specific antigen) (Acute) Physical exam (Acute) DDD (degenerative disc disease), lumbar (Acute) Low back pain radiating to both legs (Acute) Pseudofolliculitis (Acute) Abscess (Acute) Hand injury (Acute) COPD (chronic obstructive pulmonary disease) (Acute) Unilateral primary osteoarthritis, right knee (Acute) Chronic GERD (Acute) History of smoking (Acute) Bronchitis with chronic airway obstruction (Acute) Acute asthma (Acute) High cholesterol (Acute) Past Medical History Medical History Normal esophagogastroduodenoscopy (EGD) DDD (degenerative disc disease), lumbar COPD (chronic obstructive pulmonary disease) Renal calculi Bladder cancer Bilateral cataracts Muscle pain High cholesterol Asthma GERD (gastroesophageal reflux disease) Functional capacity: independent ambulation Family History Family history of problems with anesthesia: No Surgical History Surgical History History of carpal tunnel release History of testicular surgery Hx of lithotripsy History of esophagogastroduodenoscopy (EGD) H/O colonoscopy Hx of cystoscopy History of Problems with Anesthesia: No Social History Social History Housing: Apartment Patient Tobacco Use Status: Former Tobacco user Years Smoked: quit 2 years ago e-Cigarette/Vaping Use: Never Used Second Hand Smoke Exposure: No Substance Use Type Other:: LAST SMOKED ONE MONTH AGO Have you been hit, kicked, punched, or otherwise hurt by someone within the past year? If so, by whom?: No Are you DNR?: No Advance Directives: No Advance Directives Information Provided: Yes service: No Current occupational status: disabled Cognitive needs: No Hearing needs: No Vision needs: No Meds Allergies Allergy/AdvReac Type Severity Reaction Status Date / Time No Known Allergies Allergy Verified 12/06/23 10:53 [No Known Allergies*] Active Medications: Current Medications Albuterol Sulfate (Albuterol Sulfate (0.083%) 2.5 Mg/3 Ml Vial.Neb) 2.5 mg INHALE ONCE PRN PRN Reason: Shortness of Breath/Wheezing Lactated Ringer's (Lr) 1,000 mls @ 100 mls/hr IVCONT .Q10H ROXIE Last Admin: 04/02/24 10:47 Dose: 100 mls/hr Home Medications ?Medication ?Instructions ?Recorded ?Confirmed ?Last Taken ?Type umeclidinium 62.5 mcg/actuation 1 inh inhalation DAILY 08/23/21 11/20/23 Unknown History blister powder for inhalation (Incruse Ellipta) Exam Height,Weight and Vital Signs: Height 5 ft 11 in Weight 62.55 kg Last Vital Signs Temp 97.6 F 04/02/24 10:34 Pulse 77 04/02/24 10:34 Resp 19 04/02/24 10:34 BP 124/76 04/02/24 10:34 Pulse Ox 95 04/02/24 10:34 O2 Del Method Room Air 04/02/24 10:34 Airway Mallampati Class: II TM Dist: >3cm Neck ROM: Full Denture: Upper and Lower Heart: RRR Lungs: CTA Assessment and Plan Assessment Anesthesia Assessment: Anesthesia Plan Discussed Final Anesthetic Review Family History of Problems with Anesthesia: No History of Problems with Anesthesia: No NPO: Yes ASA Class: II Final Preanesthetic Review: Meds/Allgs Chart Reviewed, Consent Obtained/Reviewed and Anes Risks/Benef Reviewed Patient Risk: Low Procedure Risk: Low Anesthetic Plan Anesthetic Plan: MAC: Disposition: Standard PACU
--- NOTE | 2024-04-02 12:30 | HO.OPN-COLON ---
Colonoscopy Operative Note Operative Note Date of Service: 04/02/24 Narrative: Operative Information Procedure Description: EGD, Colonoscopy Indication: GERD, dysphagia and screening Anesthesia: MAC FLEXIBLE TRANSORAL UPPER GASTROINTESTINAL ENDOSCOPY AND COLONOSCOPY PROCEDURE NOTE UPPER ENDOSCOPY Consent: Indications for the procedure and potential complications of bleeding, perforation, reaction to medications and missed diagnosis were discussed with the patient and informed consent was obtained. Instrument: Olympus GIF H 190 J mid size upper endoscope Monitoring: Vital signs and clinical assessment, continuous EKG monitoring, Pulse oximetry, Carbon Dioxide monitoring and blood pressure monitoring were done throughout the procedure. Procedure: The patient was placed in the left lateral decubitis position and pre-procedure medications were administered and a bite block was placed. The endoscope was inserted into the mouth and advanced under direct vision to the third part of duodenum. A careful inspection was made as the upper endoscope was withdrawn including a retroflexed examination of the proximal stomach; Findings and interventions are described below. Findings: Larynx:normal Esophagus: GE junction at 43 cm, diaphragm hiatus at 43 cm, edema, bogginess and erythema at GEJ with erosions, bx taken, balloon dilation done at UES to 19 mm with resistance felt. Stomach: Patchy erythema and scarring. Biopsies were obtained. Grade 2 flap valve on retroflexed examination of the cardia. Duodenum: mil duodenitis, bx taken Intervention: Biopsies as noted above, balloon dilation COLONOSCOPY Instrument: Olympus variable stiffness pediatric scope 190L Colonoscopy Monitoring: Vital signs and clinical assessment, continuous EKG monitoring, Pulse oximetry, Carbon Dioxide monitoring and blood pressure monitoring were done throughout the procedure. Colon withdrawal time was 28 minutes. Procedure: The patient was placed in the left lateral decubitis position and pre-procedure medications were administered. After a digital rectal examination of the ano-rectum, the video colonoscope was inserted into the rectum and advanced through the colon to the cecum/TI. The colonoscope was slowly withdrawn in a retrograde panoramic fashion and the colon mucosa was carefully examined including a retroflexed view of the rectum. Findings and interventions are described below. Procedure Difficulty:moderate Findings: Terminal Ileum-normal Cecum: 12-15 mm sessile polyp raised with eleview injection and then removed with hot snare with ablation of edges and one clip applied. 4-6 mm sessile polyp removed with cold snare Ascending Colon: 6-8 mm sessile polyp removed with cold snare Transverse Colon -normal Descending Colon: x 2 sessile polyps 5-8 mm removed with cold snare Sigmoid Colon: x 1 sessile polyp 6-8 mm removed with cold snare, moderate diverticulosis Rectum: Retroflexion with small internal hemorrhoids, grade I Anorectum - normal Colon preparation: Blanchard Bowel Preparation Scale Right colon; 2 Transverse colon: 2 Left colon; 2 (0 = Unprepared colon segment with mucosa not seen due to solid stool that cannot be cleared. 1 = Portion of mucosa of the colon segment seen, but other areas of the colon segment not well seen due to staining, residual stool and/or opaque liquid. 2 = Minor amount of residual staining, small fragments of stool and/or opaque liquid, but mucosa of colon segment seen well. 3 = Entire mucosa of colon segment seen well with no residual staining, small fragments of stool or opaque liquid) Impression and Post Procedure Diagnosis: Endoscopy Findings: erosive esophagitis gastritis duodenitis Colonoscopy Findings: diverticulosis colon polyps internal hemorrhoids Plan: Await Pathology results Repeat Colonoscopy in 12 months or earlier if clinically indicated High fiber diet leaflet avoid straining at stool, epsom salts and sitz bath, anusol supps or cream check if taking PPI correctly Above findings were reviewed with the patient and relevant handouts were provided if indicated.
[2024-04-02 12:34] VITALS: BP 132/74; PULSE 65; RESP 16; TEMP 36.2; O2SAT 98
[2024-04-02 12:49] VITALS: BP 138/89; PULSE 70; RESP 18; TEMP 36.2; O2SAT 99
--- NOTE | 2024-04-02 14:15 | HO.POSTANES ---
Post Anesthesia Evaluation Post Anesthesia Evaluation Date of Service: 04/02/24 Vital Signs: Vital Signs Temp Pulse Resp BP Pulse Ox O2 Del Method 04/02/24 12:49 97.2 F 70 18 138/89 99 Room Air 04/02/24 12:34 97.2 F 65 16 132/74 98 Room Air 04/02/24 10:34 97.6 F 77 19 124/76 95 Room Air Anesthesia: Monitored Mental Status: Awake Pain Control: Satisfactory Nausea/Vomiting: None Hydration: Adequate Anesthesia-Related Issues: No Anes. Related Issues
== END 2024-04-02 14:15 | disposition home or self-care (01) ==
PROVIDERS: PCP Nurse Practitioner Family; Visit Provider Internal Medicine Gastroenterology
PROC: (CPT 43249; principal; 2024-04-02 11:40)
DX: K22.10 Ulcer of esophagus without bleeding (principal); K29.60 Other gastritis without bleeding; K29.80 Duodenitis without bleeding; K22.89 Other specified disease of esophagus; K21.9 Gastro-esophageal reflux disease without esophagitis; R13.10 Dysphagia, unspecified; Z12.11 Encounter for screening for malignant neoplasm of colon; D12.0 Benign neoplasm of cecum; D12.2 Benign neoplasm of ascending colon; D12.4 Benign neoplasm of descending colon; D12.5 Benign neoplasm of sigmoid colon; K57.30 Diverticulosis of large intestine without perforation or abscess without bleeding; K64.0 First degree hemorrhoids; E78.5 Hyperlipidemia, unspecified; J45.909 Unspecified asthma, uncomplicated; Z87.891 Personal history of nicotine dependence; Z79.02 Long term (current) use of antithrombotics/antiplatelets; Z79.899 Other long term (current) drug therapy
CPT/HCPCS: 43249; 43239; 45385; 45381; 88305; 88313; 88342; C1726; J2704

== ENCOUNTER → 2024-04-02 09:41 | Outpatient (BNV) | payer OTHER, SELFPAY | PROVIDERS: PCP Nurse Practitioner Family; Visit Provider Internal Medicine Gastroenterology | DX: Z12.11 Encounter for screening for malignant neoplasm of colon (principal); D12.0 Benign neoplasm of cecum; K57.30 Diverticulosis of large intestine without perforation or abscess without bleeding; K64.8 Other hemorrhoids; K21.00 Gastro-esophageal reflux disease with esophagitis, without bleeding; K29.80 Duodenitis without bleeding; R13.10 Dysphagia, unspecified | CPT/HCPCS: 43239; 43249; 45385 ==

== ENCOUNTER 2024-05-16 09:24 | Outpatient (AMB) | payer OTHER, SELFPAY ==
--- NOTE | 2024-05-16 09:32 | MHC.PC.OV ---
Vital Signs 05/16/24 09:33 Height 5 ft 11 in Weight 139 lb BMI 19.4 BP 130/70 Blood Pressure Location Rt brachial Position Sitting Pulse 76 Pulse Source Pulse Oximeter Pulse Oximetry (%) 96 Oxygen Delivery Method Room Air Intake Visit Reasons: Annual PE Intake Note: Pt is here today for his annual pe. Pt also mentions cut on rt hand index finger. Allergies No Known Allergies [No Known Allergies*] Allergy (Verified 05/16/24 09:37) Tobacco use date assessed: 05/16/24 Fall risk assessment: No Falls in past year Last assessed Fall Risk: 05/16/24 Dental Screening Dental Screen Date: 05/16/24 Did you have a dental visit in the last 12 months?: Yes Did you have a dental problem in the last 6 months where you did not have access to dental care?: No Was dental information given to patient?: Patient has dentist HPI HPI Comments History of Present Illness Details 68 y/o male patient who presents to the clinic today for PE. He is a patient of Fernando Esparza. Bladder CA, GERD, COPD, Dyslipidemia and Vitamin D Deficiency. [place] [facility] [place] [facility]. Pulmon ordered CT scan Lungs for Screening. Former smoker, stopped 4 years ago. Had colonoscopy 2023. [facility] Medical History Normal esophagogastroduodenoscopy (EGD) DDD (degenerative disc disease), lumbar COPD (chronic obstructive pulmonary disease) Renal calculi Bladder cancer Bilateral cataracts Muscle pain High cholesterol Asthma GERD (gastroesophageal reflux disease) Surgical History History of carpal tunnel release History of testicular surgery Hx of lithotripsy History of esophagogastroduodenoscopy (EGD) H/O colonoscopy Hx of cystoscopy Social History Housing: Apartment Patient Tobacco Use Status: Former Tobacco user Years Smoked: quit 2 years ago e-Cigarette/Vaping Use: Never Used Second Hand Smoke Exposure: No service: No Current occupational status: disabled Cognitive needs: No Hearing needs: No Vision needs: No Questionnaire Thrive Questionnaire Date Thrive assessed: 05/16/24 I am a: Patient What is your living situation today?: I have a steady place to live Within the past 12 months, did the food you bought not last and you didn't have the money to get more?: Never true Within the past 12 months, did you worry whether your food would run out before you got money to buy more?: Never true Do you have trouble paying for medicines?: No Do you have trouble getting transportation to medical appointments?: No Do you have trouble paying your heating and electricity bill?: No Do you have trouble taking care of your child, family member or friend?: No Do you have trouble with day-to-day activities such as bathing, preparing meals, shopping, managing finances, etc.?: No Are you currently unemployed and looking for a job?: No Are you interested in more education?: No Please select the resources that you would like help with: None Currently or been in a relationship where the following occur: No concerns reported THRIVE Score: 0 AUDIT C Alcohol Use Questionnaire (AUDIT-C) 1. How often do you have a drink containing alcohol?: Never 3. How often do you have six or more drinks on one occasion?: Never Total Score: 0 Score Reviewed/Action Taken: Yes HAN-7 AMB Questionnaire HAN-7 Date HAN - 7 assessed: 05/16/24 Feeling nervous, anxious, or on edge: 0 = Not at all Not being able to stop or control worryin = Not at all Worrying too much about different things: 0 = Not at all Trouble relaxin = Not at all Being so restless that it is hard to sit still: 0 = Not at all Becoming easily annoyed or irritable: 0 = Not at all Feeling afraid as if something awful might happen: 0 = Not at all Total HAN-7 score (0-4 normal; 5-9 mild; 10-14 moderate; 15-21 severe): 0 Source: Developed by Drs. Luis Byrd, Siobhan Hughes, Rene Ge and colleagues, with an educational marycarmen from [employer]. HAN-7 Assessment Billing HAN-7 Assessment Tool: HAN-7 Assessment 80051 Review of Systems Const All systems reviewed & are unremarkable except as noted in HPI and below Physical exam (Primary Care) Vital Signs: Last Vital Signs Pulse 76 05/16/24 09:33 BP 130/70 05/16/24 09:33 Pulse Ox 96 05/16/24 09:33 Oxygen Delivery Method Room Air 05/16/24 09:33 BMI result Body Mass Index 19.4 Tobacco/Smoking Status: Tobacco use Status Tobacco use date assessed 05/16/24 05/16/24 09:38 Patient Tobacco Use Status Former Tobacco user 05/16/24 09:35 e-Cigarette/Vaping Use Never Used 05/16/24 09:35 Thrive Assessment: Date of Thrive Assessment Date Thrive assessed 05/16/24 05/16/24 09:38 Currently or been in a relationship where the following occur: No concerns reported Const General: cooperative and no acute distress Orientation/consciousness: patient oriented x3 HENMT Head: Yes normocephalic Ears: external ears normal and TM's normal bilaterally General nose exam: Normal external nose present and Normal nasal mucous membranes and turbinates present Face and sinus: Yes sinuses nontender Mouth: moist mucous membranes and tongue abnormal with white coating Throat: Yes tonsils normal and Yes uvula midline Eyes Pupils: Equal, round and reactive pupils present EOM: EOMs intact bilaterally Neck Neck: Yes full ROM and Yes no lymphadenopathy Resp Effort & Inspection: normal respiratory effort and able to speak in complete sentences Auscultation: clear to auscultation bilaterally Cardio Rate: regular rate Rhythm: regular rhythm Heart sounds: S1 normal heart sound present and S2 normal heart sound present GI Inspection: Yes normal to inspection Palpation (GI): Soft to palpation, not firm, nontender, no guarding and No hepatosplenomegaly present Percussion: Yes normal to percussion Auscultation: normal bowel sounds General: Yes no CVA tenderness Back/Spine/Pelvis Back: no CVA tenderness Cervical Spine: cervical ROM normal Thoracic/Lumbar Spine: thoraco-lumbar ROM normal Skin General skin exam: no rashes or lesions noted Neuro General: patient oriented x3, gait normal and moves all extremities Cranial nerves: Yes Equal, round and reactive pupils present Motor exam (neuro): 5/5 motor strength present throughout Extrem General: Yes full ROM Psych Speech and movement: Normal speech and movement present Coding Level of Care Code Est Pt Level 4 (00586) Diagnoses Chronic GERD K21.9 Chronic obstructive pulmonary disease, unspecified COPD type J44.9 COPD type: unspecified COPD Dyslipidemia E78.5 Encounter for routine adult health examination without abnormal findings Z00.00 Degeneration of intervertebral disc of lumbar region, unspecified whether pain present M51.369 Disc-related pain type: unspecified whether pain present Additional Codes HAN-7 Assessment Billing - HAN-7 Assessment Tool: HAN-7 Assessment 09773 ([id number]) Time Spent (min) 30 Comment CPE Assessment & Plan Assessment & Plan (1) Chronic GERD: Code(s): K21.9 - Gastro-esophageal reflux disease without esophagitis Category: Medical Plan: Continue on current regiment. (2) COPD (chronic obstructive pulmonary disease): Code(s): J44.9 - Chronic obstructive pulmonary disease, unspecified Category: Medical Qualifiers: COPD type: unspecified COPD Qualified Code(s): J44.9 - Chronic obstructive pulmonary disease, unspecified Plan: Continue on current regiment (3) Dyslipidemia: Code(s): E78.5 - Hyperlipidemia, unspecified Category: Medical Plan: Ordered Fasting Labs (4) Encounter for routine adult health examination without abnormal findings: Code(s): Z00.00 - Encounter for general adult medical examination without abnormal findings Plan: Examination WNL (5) DDD (degenerative disc disease), lumbar: Code(s): M51.36 - Other intervertebral disc degeneration, lumbar region Category: Medical Qualifiers: Disc-related pain type: unspecified whether pain present Qualified Code(s): M51.369 - Other intervertebral disc degeneration, lumbar region without mention of lumbar back pain or lower extremity pain Plan: Continue on current regiment. Orders: Orders TSH reflex Free T4 Today Z00.00 - Encounter for general adult medical examination without abnormal findings Complete Blood Count Auto Diff Today E78.5 - Hyperlipidemia, unspecified, Z00.00 - Encounter for general adult medical examination without abnormal findings Lipid Panel Today Z00.00 - Encounter for general adult medical examination without abnormal findings Comprehensive Met. Panel Today Z00.00 - Encounter for general adult medical examination without abnormal findings Medications: New nystatin swish and swallow 1 mL PO DAILY 473 mL 0RF B37.0 - Candidal stomatitis Changed From gabapentin 100 mg PO BEDTIME 30 days 30 caps 1RF M51.36 - Other intervertebral disc degeneration, lumbar region To gabapentin 100 mg PO BEDTIME 90 caps 1RF M51.36 - Other intervertebral disc degeneration, lumbar region Refilled cetirizine 10 mg PO DAILY 90 tabs 1RF J44.9 - Chronic obstructive pulmonary disease, unspecified, J45.909 - Unspecified asthma, uncomplicated, Z87.891 - Personal history of nicotine dependence famotidine 40 mg PO BEDTIME 90 tabs 1RF K21.9 - Gastro-esophageal reflux disease without esophagitis albuterol sulfate 90 mcg/actuation (Ventolin HFA) 1 puff inhalation QID PRN 8.5 grams 2RF shortness of breath or wheezing J44.9 - Chronic obstructive pulmonary disease, unspecified atorvastatin 40 mg PO DAILY 90 tabs 2RF 90 days E78.5 - Hyperlipidemia, unspecified cholecalciferol (vitamin D3) 50 mcg PO DAILY 90 tabs 1RF Z00.00 - Encounter for general adult medical examination without abnormal findings esomeprazole magnesium 40 mg PO DAILY 90 caps 1RF K21.9 - Gastro-esophageal reflux disease without esophagitis fluticasone furoate-vilanterol 100-25 mcg/dose (Breo Ellipta) 1 inh inhalation DAILY 28 ea 2RF J44.9 - Chronic obstructive pulmonary disease, unspecified, J45.909 - Unspecified asthma, uncomplicated, Z87.891 - Personal history of nicotine dependence ipratropium-albuterol 0.5 mg-3 mg(2.5 mg base)/3 mL 3 mL inhalation QID 90 mL 1RF J44.9 - Chronic obstructive pulmonary disease, unspecified, J45.909 - Unspecified asthma, uncomplicated, Z87.891 - Personal history of nicotine dependence
[2024-05-16 09:33] VITALS: BP 130/70; PULSE 76; O2SAT 96; BMI 19.4
== END 2024-05-16 10:00 | disposition home or self-care (01) ==
LOC: HO.HMCC 09:24
PROVIDERS: PCP Nurse Practitioner Family; Visit Provider Nurse Practitioner Family
DX: K21.9 Gastro-esophageal reflux disease without esophagitis (principal); J44.9 Chronic obstructive pulmonary disease, unspecified; E78.5 Hyperlipidemia, unspecified; Z00.00 Encounter for general adult medical examination without abnormal findings; M51.369 Other intervertebral disc degeneration, lumbar region without mention of lumbar back pain or lower extremity pain

== ENCOUNTER → 2024-05-16 09:24 | Outpatient (BNVA) | payer OTHER, SELFPAY | PROVIDERS: PCP Nurse Practitioner Family; Visit Provider Nurse Practitioner Family | DX: Z00.00 Encounter for general adult medical examination without abnormal findings (principal); K21.9 Gastro-esophageal reflux disease without esophagitis; J44.9 Chronic obstructive pulmonary disease, unspecified; E78.5 Hyperlipidemia, unspecified; M51.369 Other intervertebral disc degeneration, lumbar region without mention of lumbar back pain or lower extremity pain | CPT/HCPCS: 96127; 99212 ==

== ENCOUNTER 2024-05-22 13:04 | Outpatient (AMB) | payer OTHER, SELFPAY ==
--- NOTE | 2024-05-22 13:00 | MHC.OFFVIS ---
Intake Visit Reasons: H&P OR Cystoscopy Intake Note: Patient is present for h&P OR CYSTOSCOPY Urology Medication:NONE Antibiotic Allergy:NONE Blood Thinner:NONE Manager Power Required: No Allergies No Known Allergies [No Known Allergies*] Allergy (Verified 05/22/24 13:01) HPI Comments Details: Mert is a pleasant male. He is a patient Dr. Carroll. He seen for the following urologic conditions - superficial bladder cancer - nephrolithiasis Telemedicine Evaluation 15 min Consultation [place] Stuart Video attempted Plan for upcoming cystoscopy Superficial bladder cancer 02/05 TURBT - required stent since close to ureteric orifice Initial presentation abnormality noted on CT scan TURBT - 02/05 - required stent since lesion located on top of left ureteric orifice Pathology - T1 low-grade Has grade 2 trabeculations on initial cystoscopy Imaging - 01/06 CT scan 1.5 cm lesion on left UVJ, no evidence hydronephrosis, mildly enlarged prostatic gland Longstanding cigarette smoker Cystoscopy - 12/07 NAD ? IC Nephrolithiasis Prior ESWL Surveillance [facility] Medical History Normal esophagogastroduodenoscopy (EGD) DDD (degenerative disc disease), lumbar COPD (chronic obstructive pulmonary disease) Renal calculi Bladder cancer Bilateral cataracts Muscle pain High cholesterol Asthma GERD (gastroesophageal reflux disease) Surgical History History of carpal tunnel release History of testicular surgery Hx of lithotripsy History of esophagogastroduodenoscopy (EGD) H/O colonoscopy Hx of cystoscopy Social History Housing: Apartment Patient Tobacco Use Status: Former Tobacco user Years Smoked: quit 2 years ago e-Cigarette/Vaping Use: Never Used Second Hand Smoke Exposure: No service: No Current occupational status: disabled Cognitive needs: No Hearing needs: No Vision needs: No Review of Systems Const All systems reviewed & are unremarkable except as noted in HPI and below Reports no additional complaints Resp Reports no additional complaints GI Reports no additional complaints Reports as per HPI Musc Reports no additional complaints Physical Exam Telemedicine evaluation Appropriate responses Regular breathing rate and rhythm HEENT Head: Yes normal to inspection Ears: hearing grossly normal bilaterally Eyes General: appearance normal, both eyes and all related structures Neck Neck: Yes normal visual inspection Chest Chest palpation & inspection: normal inspection of the chest Resp Effort & Inspection: normal respiratory effort and able to speak in complete sentences Telehealth Telehealth Telehealth Platform: [place] Location of provider rendering services: practice address Location of patient: address on file Patient Identification confirmed using: Name, : Yes Telehealth method: video Patient verbally consented to treatment: Yes Patient verbally consented to billing insurance company: Yes Patient informed of any privacy concerns related to visit: Yes Minutes spent on Phone/Video with Pt.: 15 Assessment & Plan Assessment & Plan (1) Bladder cancer: Comment: 02/05 TURBT T1LG Code(s): C67.9 - Malignant neoplasm of bladder, unspecified Category: Medical Plan Check cysto OR Risks, benefits and alternatives to therapy were discussed. These include but are not limited to infection, bleeding, damage to local organs and tissues, need for further interventions. Anesthetic risks regarding cardiac arrhythmia, blood clots, and potential mortality were discussed. The patient understands the typical recovery time and the outpatient nature of the procedure. After consideration of these risks the patient gives full informed consent and they wish to move ahead with the procedure. Patient Instructions: Imaging studies, laboratory and physical exam results were discussed and reviewed in detail. No major barriers to patient understanding were identified. An opportunity to ask questions regarding the treatment plan was provided. All questions were answered. The patient expressed understanding and agreement with the above treatment plan. The patient is aware they should contact our office by phone for worsening of their current condition or the appearance of new urologic symptoms. Compliance is encouraged with any medications and followup testing that is ordered. It is a privilege to participate in the urologic care of your patient. If you have any questions or concerns regarding treatment for the above conditions, or other urologic issues, please do not hesitate to contact me. The office telephone contact is [phone]. This note is constructed using voice recognition software. While every effort has been made to ensure accuracy digital composer errors may have been included. Yours sincerely, Dr Vladimir Puentes MD, [facility] - Urology Providers of Expert, Compassionate Care for the Genitourinary System Coding Level of Care Code Tele Est Pt Level 3 (49580) Diagnoses Bladder cancer C67.9
== END 2024-05-22 13:37 | disposition home or self-care (01) ==
LOC: HO.HUSH 13:04
PROVIDERS: PCP Nurse Practitioner Family; Visit Provider Urology
DX: C67.9 Malignant neoplasm of bladder, unspecified (principal)
CPT/HCPCS: 99213

== ENCOUNTER 2024-05-27 05:55 | Day surgery (SDC) | payer OTHER, SELFPAY ==
[2024-05-22 15:28] VITALS: BMI 19.4
--- NOTE | 2024-05-23 14:29 | HO.ANESPROP2 ---
Documented by User: Haley Lange NP 05/23/24 14:30 HPI - Anesthesia Eval Consult details Narrative: 68yo M for Cystoscopy s/p EGD and [place] 03/2024 with TIVA PMFSH Active Problems Active Problems: All Active Problems Loss of hearing (Acute) Dyslipidemia (Acute) Tinea (Acute) Cerumen impaction (Acute) Skin lesion (Acute) Nephrolithiasis (Acute) Bladder cancer (Acute) Bladder neoplasm of uncertain malignant potential (Acute) Abdominal pain (Acute) Hematemesis (Acute) Complaint of melena (Acute) Carpal tunnel syndrome of right wrist (Acute) Numbness of right hand (Acute) Abnormal MRI scan, arm (Acute) Right elbow pain (Acute) Right forearm pain (Acute) Right wrist pain (Acute) Screening for colon cancer (Acute) Screening PSA (prostate specific antigen) (Acute) Physical exam (Acute) DDD (degenerative disc disease), lumbar (Acute) Low back pain radiating to both legs (Acute) Pseudofolliculitis (Acute) Abscess (Acute) Hand injury (Acute) COPD (chronic obstructive pulmonary disease) (Acute) Unilateral primary osteoarthritis, right knee (Acute) Chronic GERD (Acute) History of smoking (Acute) Bronchitis with chronic airway obstruction (Acute) Acute asthma (Acute) High cholesterol (Acute) Past Medical History Medical History Normal esophagogastroduodenoscopy (EGD) DDD (degenerative disc disease), lumbar COPD (chronic obstructive pulmonary disease) Renal calculi Bladder cancer Bilateral cataracts Muscle pain High cholesterol Asthma GERD (gastroesophageal reflux disease) Family History Family history of problems with anesthesia: No Surgical History Surgical History History of transurethral resection of bladder tumor (TURBT) History of carpal tunnel release History of testicular surgery Hx of lithotripsy History of esophagogastroduodenoscopy (EGD) H/O colonoscopy Hx of cystoscopy History of Problems with Anesthesia: No Social History Social History Housing: Apartment Patient Tobacco Use Status: Former Tobacco user Years Smoked: quit 2 years ago e-Cigarette/Vaping Use: Never Used Second Hand Smoke Exposure: No Use of substances other than those prescribed or required for medical reasons: Yes Are you DNR?: No Advance Directives: No Advance Directives Information Provided: Yes service: No Current occupational status: disabled Cognitive needs: No Hearing needs: No Vision needs: No Meds Allergies Allergy/AdvReac Type Severity Reaction Status Date / Time No Known Allergies Allergy Verified 05/27/24 06:16 [No Known Allergies*] Home Medications ?Medication ?Instructions ?Recorded ?Confirmed ?Last Taken ?Type umeclidinium 62.5 mcg/actuation 1 inh inhalation DAILY 08/23/21 05/27/24 Unknown History blister powder for inhalation (Incruse Ellipta) Exam Height,Weight and Vital Signs: Height 5 ft 11 in Weight 63.049 kg Assessment and Plan Final Anesthetic Review Family History of Problems with Anesthesia: No History of Problems with Anesthesia: No Documented by User: Irina Pierre MD 05/27/24 08:04 [facility] Active Problems Active Problems: All Active Problems Loss of hearing (Acute) Dyslipidemia (Acute) Tinea (Acute) Cerumen impaction (Acute) Skin lesion (Acute) Nephrolithiasis (Acute) Bladder cancer (Acute) Bladder neoplasm of uncertain malignant potential (Acute) Abdominal pain (Acute) Hematemesis (Acute) Complaint of melena (Acute) Carpal tunnel syndrome of right wrist (Acute) Numbness of right hand (Acute) Abnormal MRI scan, arm (Acute) Right elbow pain (Acute) Right forearm pain (Acute) Right wrist pain (Acute) Screening for colon cancer (Acute) Screening PSA (prostate specific antigen) (Acute) Physical exam (Acute) DDD (degenerative disc disease), lumbar (Acute) Low back pain radiating to both legs (Acute) Pseudofolliculitis (Acute) Abscess (Acute) Hand injury (Acute) COPD (chronic obstructive pulmonary disease) (Acute) Unilateral primary osteoarthritis, right knee (Acute) Chronic GERD (Acute) History of smoking (Acute) Bronchitis with chronic airway obstruction (Acute) Acute asthma (Acute) High cholesterol (Acute) Some SOB today. Started last night. Did not use inhaler. No fever. No malaise. Patient frequently gets episodes of SOB. 02 sat 98%(RA) Past Medical History Medical History Normal esophagogastroduodenoscopy (EGD) DDD (degenerative disc disease), lumbar COPD (chronic obstructive pulmonary disease) Renal calculi Bladder cancer Bilateral cataracts Muscle pain High cholesterol Asthma GERD (gastroesophageal reflux disease) Family History Family history of problems with anesthesia: No Surgical History Surgical History History of transurethral resection of bladder tumor (TURBT) History of carpal tunnel release History of testicular surgery Hx of lithotripsy History of esophagogastroduodenoscopy (EGD) H/O colonoscopy Hx of cystoscopy History of Problems with Anesthesia: No Social History Social History Housing: Apartment Patient Tobacco Use Status: Former Tobacco user Years Smoked: quit 2 years ago e-Cigarette/Vaping Use: Never Used Second Hand Smoke Exposure: No Use of substances other than those prescribed or required for medical reasons: Yes Are you DNR?: No Advance Directives: No Advance Directives Information Provided: Yes service: No Current occupational status: disabled Cognitive needs: No Hearing needs: No Vision needs: No Meds Allergies Allergy/AdvReac Type Severity Reaction Status Date / Time No Known Allergies Allergy Verified 05/27/24 06:16 [No Known Allergies*] Home Medications ?Medication ?Instructions ?Recorded ?Confirmed ?Last Taken ?Type umeclidinium 62.5 mcg/actuation 1 inh inhalation DAILY 08/23/21 05/27/24 Unknown History blister powder for inhalation (Incruse Ellipta) Exam Height,Weight and Vital Signs: Height 5 ft 11 in Weight 63.049 kg Vital Signs Temp Pulse Resp BP Pulse Ox O2 Del Method 05/27/24 06:26 66 16 05/27/24 06:25 98.9 F 70 16 151/92 H 98 Room Air Airway Mallampati Class: III TM Dist: >3cm Neck ROM: Full Denture: Upper and Lower Loose/Missing/Broken Teeth: Yes (Edentulous. Did not bring dentures in) Heart: RRR Lungs: CTAB (S/p respiratory treatment Assessment and Plan Assessment Anesthesia Assessment: Anesthesia Plan Discussed and Chart Reviewed Final Anesthetic Review Family History of Problems with Anesthesia: No History of Problems with Anesthesia: No NPO: Yes ASA Class: III Final Preanesthetic Review: No Changes in Pt Med Stat, Meds/Allgs Chart Reviewed, Consent Obtained/Reviewed and Anes Risks/Benef Reviewed Patient Risk: Intermediate Procedure Risk: Low Assessment/Block/Sedation in SS: Assess/Block/Sedation-SS Anesthetic Plan Anesthetic Plan: MAC: and TIVA Disposition: Standard PACU
[2024-05-27] VITALS (7 sets, daily range): BP systolic 117–151; BP diastolic 61–97; PULSE 66–82; RESP 16–17; TEMP 36.7–37.2; O2SAT 96–99; BMI 19.5
[2024-05-27] MEDS: Lactated Ringers 1,000 ML 100 ML IVCONT (06:41)
--- NOTE | 2024-05-27 07:37 | P.HPSUR_ITS ---
Pre-Procedural Eval Section A - 24 Hr Update-Section A only Date of Service: 05/27/24 The patient is an INPATIENT: No Changes since office visit: No Cold of Flu in the past 2 weeks, No New Medical Problems, No Changes in Medication and No Patient answered all questions The patient has been examined within 24 hours of the surgical procedure. The History & Physical has been completed within 30 days and I have reviewed it.: Yes Section B - Complete if H&P > 30 days Chief Complaint: Malignant neoplasm of bladder, unspecified Details of Present Illness: Surveillance cystoscopy for bladder cancer superfi cial low-grade Allergies: Allergies Allergy/AdvReac Type Severity Reaction Status Date / Time No Known Allergies Allergy Verified 05/27/24 06:16 [No Known Allergies*] Plan I have reviewed the history and physical and performed a pertinent physical examination on my patient. No changes have occurred unless specified. Time Spent With Patient Time: Total time managing care of this patient today ____ minutes.
[2024-05-27] MEDS: levoFLOXacin 500 MG TABLET PO (07:40)
--- NOTE | 2024-05-27 07:53 | P.OP_ITS ---
Operative Note Operative Note Date of Service: 05/27/24 Narrative: Preop superficial bladder cancer surveillance Postop superficial bladder cancer surveillance Procedure cystoscopy Surgeon Dr. Vladimir Thakkar Anesthesia sedation Cystoscopy performed using a disposable Urovue digital 16 Romanian cystoscope. Meatus circumcised Urethra anterior and posterior urethra normal Prostatic Urethra unremarkable Bladder examination with retroflexion of cystoscope Bladder Orifices normal shape and position Bladder Capacity median Trabeculations grade 1 Cellule Formation none Diverticulum Formation none Mucosal Erythema injected vascularity similar to interstitial cystitis Bladder Tumor none
== END 2024-05-27 08:40 | disposition home or self-care (01) ==
PROVIDERS: PCP Nurse Practitioner Family; Visit Provider Urology
PROC: 0TJB8ZZ Inspection of Bladder, Via Natural or Artificial Opening Endoscopic (ICD-10-PCS; CPT 52000; principal; 2024-05-27 07:30)
DX: C67.9 Malignant neoplasm of bladder, unspecified (principal); N32.89 Other specified disorders of bladder; N20.0 Calculus of kidney; Z87.442 Personal history of urinary calculi; J44.9 Chronic obstructive pulmonary disease, unspecified; G47.33 Obstructive sleep apnea (adult) (pediatric); M51.369 Other intervertebral disc degeneration, lumbar region without mention of lumbar back pain or lower extremity pain; K21.9 Gastro-esophageal reflux disease without esophagitis; E78.00 Pure hypercholesterolemia, unspecified; Z98.890 Other specified postprocedural states; Z87.891 Personal history of nicotine dependence
CPT/HCPCS: 52000; 94640; J2003; J2405; J2704; J3010

== ENCOUNTER → 2024-05-27 05:55 | Outpatient (BNV) | payer OTHER, SELFPAY | PROVIDERS: PCP Nurse Practitioner Family; Visit Provider Urology | DX: C67.9 Malignant neoplasm of bladder, unspecified (principal) | CPT/HCPCS: 52000 ==

== ENCOUNTER 2024-05-29 10:15 | Outpatient (AMB) | payer OTHER, SELFPAY ==
--- NOTE | 2024-05-29 10:31 | AM.OFFWIN_ITS ---
Intake Vital Signs 05/29/24 10:33 Weight 153 lb BP 126/90 H Blood Pressure Location Lt brachial Position Sitting Pulse 80 Pulse Source Pulse Oximeter Pulse Oximetry (%) 98 Oxygen Delivery Method Room Air Intake Visit Reasons: EP-rt hand mid finger cut Intake Note: Patient here for cut on middle finger on right hand that he noticed a few days ago. Patient Tobacco Use Status: Former Tobacco user Allergies No Known Allergies [No Known Allergies*] Allergy (Verified 05/29/24 10:34) Do you need a note to return to daycare/school/sports/work: No HPI HPI Comments History of Present Illness Details Patient is a 69-year-old male complaining of a cut on his right middle finger that is very painful. He states it has been there for some time, he has been putting barrier ointment on it without relief in his symptoms. 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 He states there is a lot of skin around the cut and he does not know what to do about it. [facility] Medical History Normal esophagogastroduodenoscopy (EGD) DDD (degenerative disc disease), lumbar COPD (chronic obstructive pulmonary disease) Renal calculi Bladder cancer Bilateral cataracts Muscle pain High cholesterol Asthma GERD (gastroesophageal reflux disease) Surgical History History of transurethral resection of bladder tumor (TURBT) History of carpal tunnel release History of testicular surgery Hx of lithotripsy History of esophagogastroduodenoscopy (EGD) H/O colonoscopy Hx of cystoscopy Social History Housing: Apartment Patient Tobacco Use Status: Former Tobacco user Years Smoked: quit 2 years ago e-Cigarette/Vaping Use: Never Used Second Hand Smoke Exposure: No service: No Current occupational status: disabled Cognitive needs: No Hearing needs: No Vision needs: No Review of Systems Const All systems reviewed & are unremarkable except as noted in HPI and below Physical Exam Vital Signs: Last Vital Signs Pulse 80 05/29/24 10:33 BP 126/90 H 05/29/24 10:33 Pulse Ox 98 05/29/24 10:33 Oxygen Delivery Method Room Air 05/29/24 10:33 Const General: cooperative, healthy appearing, comfortable, no acute distress and well developed Orientation/consciousness: patient oriented x3 Limitations: no limitations HEENT Head: Yes normal to inspection Neck Neck: Yes normal visual inspection and Yes supple Skin Other: Right middle finger has a 1 cm linear laceration across the DIP with surrounding hyperkeratosis of the skin, no warmth, no bleeding, nothing oozing, no erythema Neuro General: patient oriented x3 Assessment & Plan Assessment & Plan (1) Finger wound, simple, open: Code(s): S61.209A - Unspecified open wound of unspecified finger without damage to nail, initial encounter Qualifiers: Encounter type: initial encounter Qualified Code(s): S61.209A - Unspecified open wound of unspecified finger without damage to nail, initial encounter Plan: Recommended patient use Aquaphor twice daily keep the wound clean and dry. Plan see above Coding Level of Care Code Est Pt Level 3 (11428) Diagnoses Open wound of finger, initial encounter S61.209A Encounter type: initial encounter
[2024-05-29 10:33] VITALS: BP 126/90; PULSE 80; O2SAT 98
== END 2024-05-29 10:49 | disposition home or self-care (01) ==
PROVIDERS: PCP Nurse Practitioner Family; Visit Provider Physician Assistant
DX: S61.202A Unspecified open wound of right middle finger without damage to nail, initial encounter (principal)

== ENCOUNTER → 2024-05-29 10:15 | Outpatient (BNVA) | payer OTHER, SELFPAY | PROVIDERS: PCP Nurse Practitioner Family; Visit Provider Physician Assistant | DX: S61.202D Unspecified open wound of right middle finger without damage to nail, subsequent encounter (principal) | CPT/HCPCS: 99212 ==

== ENCOUNTER 2024-06-27 09:55 | Outpatient (AMB) | payer OTHER, SELFPAY ==
--- OUTSIDE RECORDS SUMMARY | 2024-06-27 09:59 | XMS_ITS | Continuity of Care Document ---
Author Organization [facility] ter Address [address] [place] [address]- Care Team Providers Care Pegger Dobby Looms Name Role Phone Isaias HOLLIS, Fernando Norris Primary Care Physician Encounter [facility] ACCT R [id number] Date(s): 04/23/24 - 05/29/24 [facility] [address] [place] [address]- Attending Physician: Tim Faust MD Admitting Physician: Tim Faust MD Referring Physician: Tim Faust MD Encounter Type: Pre-Outpt Allergies, Adverse Reactions, Alerts No Known Allergies Medications albuterol 0.083% inhalation solution 3 mL = 2.5 mg, Inhalation, Every 6 hours, PRN for wheezing/shortness of breath, # 180 mL, 11 Refills, Maintenance, 11/22/23 8:53:00 AM EDT, Solution, [facility] #[id number], copd j44.9, 180, cm, 11/22/23 8:32:00 EDT, Height Start Date: 11/22/23 Stop Date: 11/16/24 Status: Ordered Quantity: 180.0 Unit: mL Repeat number: 12 atorvastatin 40 mg oral tablet 1 tablet = 40 mg, By Mouth, Daily at bedtime, 0 Refills, Maintenance, 03/14/15 11:15:01 AM EDT Start Date: 03/14/15 Status: Ordered Repeat number: 1 Azithromycin 5 Day Dose Pack 250 mg oral tablet 1 pack/packet, By Mouth, Once, # 6 tablet, 1 Refills, Soft Stop, 11/06/20 3:12:00 PM EDT, Tablet, [facility] #[id number], Partial fill upon patient request if the prescription is for a schedule II opioid drug., 180, cm, 09/07/20 12:38:00 EST, Height Start Date: 11/06/20 Status: Ordered Quantity: 6.0 Unit: tablet Repeat number: 2 Azithromycin 5 Day Dose Pack 250 mg oral tablet 1 pack/packet, By Mouth, Once, as directed on package labeling, # 6 tablet, 0 Refills, Soft Stop, 03/22/23 2:15:00 PM EDT, Tablet, [facility] #[id number], Partial fill upon patient request if the prescription is for a schedule II opioid drug., 180, cm, 01/03/23 8:06:00 EDT, Height Start Date: 03/22/23 Status: Ordered Quantity: 6.0 Unit: tablet Repeat number: 1 Breo Ellipta 100 mcg-25 mcg/inh inhalation powder 1 puffs, Inhalation, Daily, # 1 each, 11 Refills, Maintenance, 11/22/23 8:53:00 AM EDT, Powder, [facility] #[id number], copd j44.9, 1 puffs Inhalation Daily,x30 days, 180, cm, 11/22/23 8:32:00 EDT, Height Start Date: 11/22/23 Stop Date: 11/16/24 Status: Ordered Quantity: 1.0 Unit: each Repeat number: 12 Cetirizine = 10 mg, By Mouth, Daily, 0 Refills, Maintenance, 07/30/17 10:14:30 PM EST Start Date: 07/30/17 Status: Ordered Repeat number: 1 cholecalciferol 1000 intl units oral tablet 2 tablet = 2,000 International_Units, By Mouth, Daily, # 30 tablet, 0 Refills, Maintenance, 07/31/1811:05:53 AM EST, Tablet Start Date: 07/31/17 Stop Date: 08/30/17 Status: Ordered Quantity: 30.0 Unit: tablet Repeat number: 1 CPAP Equipment See Instructions, # 1 each, Refills 11, Tot. Refills 11, Maintenance, PAP supplies Refill mask and supplies A4604 Heated Tubing/Climate line or A7037 Tubing A7038 or A7039 Filters A7036 Chin strap A7046 Humidifier Chamber A7035 Headgear A7027, A7030, A7031, A7032, A7033, A7034 Nasal, Full or PillowMask and parts E0562 Heated Humidifier length of need Lifetime 99 months, 01/03/23 11:49:00 AM EDT, Supply Start Date: 01/03/23 Status: Ordered Quantity: 1.0 Unit: each Repeat number: 12 CPAP mask CPAP mask, See Instructions, # 1 each, Refills 0, Tot. Refills 0, Maintenance, CPAP Mask Fitting DxOSA G47.33, 08/26/22 5:17:00 PM EST, Supply Start Date: 08/26/22 Status: Ordered Quantity: 1.0 Unit: each Repeat number: 1 Flomax 0.4 mg oral capsule 0.4 mg, 1, capsule, By Mouth, Daily, # 7 capsule, Refills 0, Tot. Refills 0, Maintenance, 08/23/19 10:23:00 AM EST, Route to Pharmacy Electronically, [facility] #[id number], 180, cm, 01/14/19 9:07:00 EDT, Height Start Date: 08/23/19 Stop Date: 08/30/19 Status: Ordered Quantity: 7.0 Unit: capsule Repeat number: 1 Incruse Ellipta 62.5 mcg/inh inhalation powder 1 each, Inhalation, Every 24 hours, doses should be taken at least 24 hours apart, # 30 each, 11 Refills, Maintenance, 11/22/23 8:53:00 AM EDT, Powder, [facility] #[id number], copd j44.9, 180, cm,11/22/23 8:32:00 EDT, Height Start Date: 11/22/23 Stop Date: 11/16/24 Status: Ordered Quantity: 30.0 Unit: each Repeat number: 12 Nebulizer supplies Nebulizer supplies, See Instructions, # 1 each, Refills 0, Tot. Refills 0, Maintenance, A7003 Neb Disp Set A7014 Neb non-Disp Filter A7005 Neb Non-Disp set A7015 Aerosol Mask A7013 Neb Disp Filter length of need lifetime 99 months for home use, 11/29/23 2:16:00 PM EDT, Supply Start Date: 11/29/23 Status: Ordered Quantity: 1.0 Unit: each Repeat number: 1 nebulizer supplies nebulizer supplies, See Instructions, # 1 each, Refills 0, Tot. Refills 0, Maintenance, All relatedsmall volume nebulizer/compressor supplies to include: all nebulizer circuits, filters, tubing and masks Diagnosis: J44.9, 01/31/20 1:51:00 PM EDT, Supply Start Date: 01/31/20 Status: Ordered Quantity: 1.0 Unit: each Repeat number: 1 ondansetron 4 mg oral tablet 1 tablet = 4 mg, By Mouth, Every 8 hours, # 12 tablet, 0 Refills, Maintenance, 08/23/19 10:22:00 AM EST, Tablet, [facility] #[id number], 180, cm, 01/14/19 9:07:00 EDT, Height Start Date: 08/23/19 Stop Date: 08/27/19 Status: Ordered Quantity: 12.0 Unit: tablet Repeat number: 1 PAP Mask Fitting PAP Mask Fitting, See Instructions, # 1 each, Refills 0, Tot. Refills 0, Maintenance, CPAP Mask fitting Dx NICKY G47.33, 02/21/23 8:42:00 AM EDT, Supply Start Date: 02/21/23 Status: Ordered Quantity: 1.0 Unit: each Repeat number: 1 PAP SUPPLIES PAP SUPPLIES, See Instructions, # 1 each, Refills 11, Tot. Refills 11, Maintenance, PAP supplies Refill mask and supplies A4604 Heated Tubing/Climate line or A7037 Tubing A7038 or A7039 Filters H8164Kedc strap A7046 Humidifier Chamber A7035 Headgear A7027, A7030, A7031, A7032, A7033, A7034 Nasal, Full or Pillow Mask and parts E0562 Heated Humidifier length of need Lifetime 99 months Dx NICKY G47.33, 11/22/23 9:22:00 AM EDT, Supply Start Date: 11/22/23 Status: Ordered Quantity: 1.0 Unit: each Repeat number: 12 ProAir HFA 90 mcg/inh inhalation aerosol with adapter 2, puffs, Inhalation, Every 6 hours, PRN, # 8.5 Gm, Refills 11, Tot. Refills 11, Maintenance, 11/22/23 8:54:00 AM EDT, Aerosol, Route to Pharmacy Electronically, [id number], [facility] #[id number], copd j44.9, 180, cm, 11/22/23 8:32:00 EDT, Height Start Date: 11/22/23 Stop Date: 11/16/24 Status: Ordered Quantity: 8.5 Unit: g Repeat number: 12 ProAir RespiClick 90 mcg/inh inhalation powder See Instructions, # 1 each, Refills 11 Tot. Refills 11, inhale 2 puffs by mouth every 4 hours if needed, [facility] Start Date: 12/27/18 Status: Ordered Quantity: 1.0 Unit: each Repeat number: 12 Protonix 40 mg oral delayed release tablet 1 tablet = 40 mg, By Mouth, 2 times a day, # 60 tablet, 3 Refills, Maintenance, 12/19/17 10:25:00 AM EDT Start Date: 12/19/17 Status: Ordered Quantity: 60.0 Unit: tablet Repeat number: 4 Ventolin Ventolin, 2, puffs, Inhalation, Daily, Refills 0, Maintenance, 09/12/17 10:21:14 AM EST, Compound Start Date: 09/12/17 Status: Ordered Repeat number: 1 Ventolin HFA 108 mcg/inh inhalation aerosol with adapter 2 puffs, Inhalation, 4 times a day, PRN for wheezing, # 8.5 Gm, 5 Refills, Maintenance, 03/26/24 9:58:00 AM EDT, Aerosol, [facility] #[id number], copd j44.9, 180, cm, 03/26/24 9:33:00 EDT, Height Start Date: 03/26/24 Stop Date: 09/22/24 Status: Ordered Quantity: 8.5 Unit: g Repeat number: 6 Problem List Condition Confirmation Course Effective Dates [...] quit smoking 2009; entered on: 08/24/15 Sex Sex Representation Male (finding) Patient Care team information Care Team Personnel Name: Fernando Esparza NP Position: Reference Physician Member Role: PCP Address: [address] [place] [address]- Telecom: Care Team Related Persons Name: ZARINA CAVAZOS Name: MARCO A RAUSCH Name: CONCHITA GUZMAN Name: VÍCTOR DONG Insurance Providers Guarantor name: GEOFFREY DONG Health Plan Information #: 1 Payer: [facility] C[employer] Member Number: [id number] Policy Number: NA Group Number: NA Health Plan Information #: 2 Payer: [employer] Member Number: [id number] Policy Number: NA Group Number: [id number]
--- NOTE | 2024-06-27 10:02 | MHC.OFFWIV ---
Intake Vital Signs 06/27/24 10:03 Weight 153 lb BP 140/90 H Blood Pressure Location Rt brachial Position Sitting Pulse 66 Pulse Source Pulse Oximeter Pulse Oximetry (%) 92 Oxygen Delivery Method Room Air Intake Visit Reasons: EP-rt hand mid finger cut Intake Note: Patient here for right hand mid finger cut that has been open for about 4 months and not healing, he is now having pain that radiates down the finger. Patient Tobacco Use Status: Former Tobacco user Allergies No Known Allergies [No Known Allergies*] Allergy (Verified 06/27/24 10:04) Do you need a note to return to daycare/school/sports/work: No HPI EP-rt hand mid finger cut HPI Details This note is constructed using voice recognition software. While every effort has been made to ensure accuracy, research laboratory specialist errors may have been included. The patient is a 69 year old male who presents to the clinic today with chronic right middle finger laceration. He notes that it has been there for several weeks prior to his last visit, which was 05/29/24. At that visit he was advised to apply Aquaphor to keep the hyperkeratotic skin moisturized, which he has been doing so. He has noted no improvement in his symptoms, and does have some pain when he bends his finger. He reports that the pain travels up his finger, towards the hyperkeratotic skin. He denies fever, chills, joint pain, redness, warmth, discharge. He notes that he has been using nail clippers to remove some of the hyperkeratotic skin that was distal to the laceration, which he reports is no longer there. He denies any reduced strength in his hand. 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 [facility] Medical History Normal esophagogastroduodenoscopy (EGD) DDD (degenerative disc disease), lumbar COPD (chronic obstructive pulmonary disease) Renal calculi Bladder cancer Bilateral cataracts Muscle pain High cholesterol Asthma GERD (gastroesophageal reflux disease) Surgical History History of transurethral resection of bladder tumor (TURBT) History of carpal tunnel release History of testicular surgery Hx of lithotripsy History of esophagogastroduodenoscopy (EGD) H/O colonoscopy Hx of cystoscopy Social History Housing: Apartment Patient Tobacco Use Status: Former Tobacco user Years Smoked: quit 2 years ago e-Cigarette/Vaping Use: Never Used Second Hand Smoke Exposure: No service: No Current occupational status: disabled Cognitive needs: No Hearing needs: No Vision needs: No Review of Systems Const All systems reviewed & are unremarkable except as noted in HPI and below Physical Exam Vital Signs: Last Vital Signs Pulse 66 06/27/24 10:03 BP 140/90 H 06/27/24 10:03 Pulse Ox 92 06/27/24 10:03 Oxygen Delivery Method Room Air 06/27/24 10:03 Const General: cooperative, healthy appearing, comfortable, no acute distress and well developed Orientation/consciousness: patient oriented x3 Limitations: no limitations HEENT Head: Yes normal to inspection Resp Effort & Inspection: normal respiratory effort and able to speak in complete sentences Skin Other: Right middle finger with 1 cm linear laceration across the DIP with surrounding hyperkeratosis of the skin proximal to the wound, no warmth, bleeding, discharge, or erythema Neuro General: patient oriented x3 Assessment & Plan Assessment & Plan (1) Finger wound, simple, open: Code(s): S61.209A - Unspecified open wound of unspecified finger without damage to nail, initial encounter Qualifiers: Encounter type: subsequent encounter Qualified Code(s): S61.209D - Unspecified open wound of unspecified finger without damage to nail, subsequent encounter Plan: Patient with ongoing wound to finger, with hyperkeratotic skin, we will refer to Dermatology for intervention and consideration of removal of the additional skin for allowance for overall healing. Given the presentation, there is no indication for closure of the wound today. Advised patient to keep the area clean, dry, and to monitor for signs of erythema, warmth, discharge. Plan See above for full details and plan. Orders: Referrals Dermatology Referral S61.209D - Unspecified open wound of unspecified finger without damage to nail, subsequent encounter Coding Level of Care Code Est Pt Level 3 (49891) Diagnoses Open wound of finger, subsequent encounter S61.209D Encounter type: subsequent encounter
[2024-06-27 10:03] VITALS: BP 140/90; PULSE 66; O2SAT 92
== END 2024-06-27 10:33 | disposition home or self-care (01) ==
PROVIDERS: PCP Nurse Practitioner Family; Visit Provider Registered Nurse
DX: S61.209D Unspecified open wound of unspecified finger without damage to nail, subsequent encounter (principal)

== ENCOUNTER → 2024-06-27 09:55 | Outpatient (BNVA) | payer OTHER, SELFPAY | PROVIDERS: PCP Nurse Practitioner Family; Visit Provider Registered Nurse | DX: S61.202D Unspecified open wound of right middle finger without damage to nail, subsequent encounter (principal) | CPT/HCPCS: 99212 ==

== ENCOUNTER 2024-08-15 09:28 | Outpatient (AMB) | payer OTHER, SELFPAY ==
--- NOTE | 2024-08-15 09:29 | A.OFFPC_ITS ---
Vital Signs 08/15/24 09:30 Height 5 ft 11 in Weight 140 lb BMI 19.5 BP 110/66 Blood Pressure Location Lt brachial Position Sitting Respiration 16 Pulse 74 Pulse Source Pulse Oximeter Temp 97.9 F Temp Source Oral Pulse Oximetry (%) 95 Oxygen Delivery Method Room Air Intake Visit Reasons: 3 months f/up Intake Note: pt is here for 3 mon f.up Shower Room Attendant Required: No Accompanied by: Self / Same As Patient Allergies No Known Allergies [No Known Allergies*] Allergy (Verified 08/15/24 09:47) Medication List - Last Reconciled 08/15/24 by Fernando Esparza, STATEMENT DISTRIBUTION CLERK- albuterol sulfate 90 mcg/actuation (Ventolin HFA) 1 puff inhalation QID PRN atorvastatin 40 mg PO DAILY 90 days cetirizine 10 mg PO DAILY cholecalciferol (vitamin D3) 50 mcg PO DAILY ear thermometer As directed esomeprazole magnesium 40 mg PO DAILY fluticasone furoate-vilanterol 100-25 mcg/dose (Breo Ellipta) 1 inh inhalation DAILY gabapentin 100 mg PO BEDTIME ipratropium-albuterol 0.5 mg-3 mg(2.5 mg base)/3 mL 3 mL inhalation QID nystatin 1 mL PO DAILY [rolling walker with seat and brakes As directed] tape thermometer (Forehead Thermometer) As directed umeclidinium 62.5 mcg/actuation (Incruse Ellipta) 1 inh inhalation DAILY Tobacco use date assessed: 08/15/24 Fall risk assessment: No Falls in past year Last assessed Fall Risk: 08/15/24 Dental Screening Dental Screen Date: 08/15/24 Did you have a dental visit in the last 12 months?: Yes Did you have a dental problem in the last 6 months where you did not have access to dental care?: No Was dental information given to patient?: Patient has dentist HPI 3 months f/up HPI Details Chief Complaint Follow-up and management of dyslipidemia. History of Present Illness The patient is a 69-year-old male presenting for management of dyslipidemia. He reports that he is currently on a statin for this condition. He denies any associated symptoms such as fevers, chills, chest pain, or increased shortness of breath. The patient is also under care for his pulmonary health, with plans for a follow-up low-dose CAT scan at [facility]. His dyslipidemia has been previously treated with a statin, and he remains adherent to this regimen. The patient acknowledges the need for follow-up and has been informed of a for thcoming follow-up schedule, which was previously discussed as six months. Social History Health Maintenance - Patient is due for a low-dose CAT scan for pulmonary evaluation. - Patient encouraged to continue follow- up with medical charge entry specialist. Review of Systems - General: Denies fevers, denies chills. - Cardiovascular: Denies chest pain. - Respiratory: Denies increased shortnes s of breath. Physical Exam General: Cooperative, healthy appearing, comfortable, no acute distress and well developed, skinny stature Orientation: Patient oriented x3 Limitations: No limitations Head: Normal to inspection Ears: Hearing grossly normal bilaterally, sometimes the ear is kind of very narrow Nose: Normal external nose present Face and sinus: Normal facial exam Eyes: Appearance normal, both eyes and all related structures Neck: Normal visual inspection and Yes full ROM Respiratory: Normal respiratory effort and able to speak in complete sentences. Clear to auscultation bilaterally Cardiovascular: Regular rate and rhythm. Normal S1 and S2 GI: Normal to inspection. Soft to palpation and nontender Skin: No rashes or lesions noted Neuro: Patient oriented x3 Extremities: Normal to inspection Results Plan - Continue current statin medication for management of dyslipidemia. - Highly encourage follow-up with pulmon awilda specialist at [facility] to ensure repeat studies, including a low-dose CAT scan, are completed. - Follow-up in six months for reassessme nt of dyslipidemia management unless otherwise advised. Patient was informed and verbally consented to the use of an ambient scribe for clinic note documentation during this visit. Discussion Notes I discussed the ongoing management of the patient's dyslipidemia, emphasizing the importance of continuing the current statin therapy. I also reviewed the need for follow-up with his medical charge entry specialist to complete repeat studies, including a low-dose CAT scan. The risks and benefits of maintaining regular follow-ups were emphasized, along with the potential implications of addressing related pulmonary health issues in conjunction with his dyslipidemic condition. Patient Instructions - Continue taking the prescribed statin medication as directed. - Schedule and complete the low-dose CAT scan with the medical charge entry specialist. - Return for follow-up care in six month s as previously discussed. - Report any new symptoms such as chest pain, increased shortness of breath, fevers, or chills immediately. [facility] Medical History Normal esophagogastroduodenoscopy (EGD) DDD (degenerative disc disease), lumbar COPD (chronic obstructive pulmonary disease) Renal calculi Bladder cancer Bilateral cataracts Muscle pain High cholesterol Asthma GERD (gastroesophageal reflux disease) Surgical History History of transurethral resection of bladder tumor (TURBT) History of carpal tunnel release History of testicular surgery Hx of lithotripsy History of esophagogastroduodenoscopy (EGD) H/O colonoscopy Hx of cystoscopy Social History Housing: Apartment Patient Tobacco Use Status: Former Tobacco user Years Smoked: quit 2 years ago e-Cigarette/Vaping Use: Never Used Second Hand Smoke Exposure: No service: No Current occupational status: disabled Cognitive needs: No Hearing needs: No Vision needs: No Questionnaire PHQ-9 Over the last 2 weeks, how often have you been bothered by any of the following problems? 1. Little interest or pleasure in doing things: not at all 2. Feeling down, depressed, or hopeless: not at all 3. Trouble falling or staying asleep, or sleeping too much: not at all 4. Feeling tired or having little energy: not at all 5. Poor appetite or overeating: not at all 6. Feeling bad about yourself - or that you are a failure or have let yourself or your family down: not at all 7. Trouble concentrating on things, such as reading the newspaper or watching television: not at all 8. Moving or speaking so slowly that other people could have noticed. Or the opposite - being so fidgety or restless that you have been moving around a lot more than usual: not at all 9. Thoughts that you would be better off or of hurting yourself in some way: not at all Total score: 0 Depression Screening Interpretation: Negative Depression Screening Done: Yes 92123 - PHQ-9 Billing: Yes Source: Developed by Drs. Luis Byrd, Siobhan Hughes, Rene Ge and colleagues, with an educational marycarmen from [employer]. Thrive Questionnaire Date Thrive assessed: 08/15/24 I am a: Patient What is your living situation today?: I have a steady place to live Within the past 12 months, did the food you bought not last and you didn't have the money to get more?: Never true Within the past 12 months, did you worry whether your food would run out before you got money to buy more?: Never true Do you have trouble paying for medicines?: No Do you have trouble getting transportation to medical appointments?: No Do you have trouble paying your heating and electricity bill?: No Do you have trouble taking care of your child, family member or friend?: No Do you have trouble with day-to-day activities such as bathing, preparing meals, shopping, managing finances, etc.?: No Are you currently unemployed and looking for a job?: No Are you interested in more education?: No Please select the resources that you would like help with: None Currently or been in a relationship where the following occur: No concerns reported THRIVE Score: 0 AUDIT C Alcohol Use Questionnaire (AUDIT-C) 1. How often do you have a drink containing alcohol?: Never 3. How often do you have six or more drinks on one occasion?: Never Total Score: 0 Score Reviewed/Action Taken: Yes HAN-7 AMB Questionnaire HAN-7 Date HAN - 7 assessed: 08/15/24 Feeling nervous, anxious, or on edge: 0 = Not at all Not being able to stop or control worryin = Not at all Worrying too much about different things: 0 = Not at all Trouble relaxin = Not at all Being so restless that it is hard to sit still: 0 = Not at all Becoming easily annoyed or irritable: 0 = Not at all Feeling afraid as if something awful might happen: 0 = Not at all Total HAN-7 score (0-4 normal; 5-9 mild; 10-14 moderate; 15-21 severe): 0 Source: Developed by Drs. Luis Byrd, Siobhan Hughes, Rene Ge and colleagues, with an educational marycaremn from [employer]. HAN-7 Assessment Billing HAN-7 Assessment Tool: HAN-7 Assessment 40900 Physical exam (Primary Care) Vital Signs: Last Vital Signs Temp 97.9 F 08/15/24 09:30 Pulse 74 08/15/24 09:30 Resp 16 08/15/24 09:30 BP 110/66 08/15/24 09:30 Pulse Ox 95 08/15/24 09:30 Oxygen Delivery Method Room Air 08/15/24 09:30 BMI result Body Mass Index 19.5 Tobacco/Smoking Status: Tobacco use Status Tobacco use date assessed 08/15/24 08/15/24 09:31 Patient Tobacco Use Status Former Tobacco user 08/15/24 09:30 e-Cigarette/Vaping Use Never Used 08/15/24 09:30 PHQ-9: PHQ-9 Score PHQ-9: Total score 0 08/15/24 09:31 Depression Screening Interpretation: Negative Thrive Assessment: Date of Thrive Assessment Date Thrive assessed 08/15/24 08/15/24 09:31 Currently or been in a relationship where the following occur: No concerns reported Coding Level of Care Code Est Pt Level 3 (35856) Diagnoses Dyslipidemia E78.5 Screening PSA (prostate specific antigen) Z12.5 Additional Codes HAN-7 Assessment Billing - HAN-7 Assessment Tool: HAN-7 Assessment 25906 ([id number]) PHQ-9 - 19710 - PHQ-9 Billing: Yes ([id number]) Assessment & Plan Assessment & Plan (1) Dyslipidemia: Code(s): E78.5 - Hyperlipidemia, unspecified Category: Medical (2) Screening PSA (prostate specific antigen): Code(s): Z12.5 - Encounter for screening for malignant neoplasm of prostate Category: Medical Plan . Orders: Orders Complete Blood Count Auto Diff Today E78.5 - Hyperlipidemia, unspecified Comprehensive [place]. Panel Fast Today E78.5 - Hyperlipidemia, unspecified UA CC w/rflx Micro + Cult Today E78.5 - Hyperlipidemia, unspecified Lipid Panel Today E78.5 - Hyperlipidemia, unspecified TSH reflex Free T4 Today E78.5 - Hyperlipidemia, unspecified Prostate Specific Antigen Scr Today Z12.5 - Encounter for screening for malignant neoplasm of prostate Medications: Refilled atorvastatin 40 mg PO DAILY 90 days 90 tabs 2RF E78.5 - Hyperlipidemia, unspecified cholecalciferol (vitamin D3) 50 mcg PO DAILY 90 tabs 1RF Z00.00 - Encounter for general adult medical examination without abnormal findings cetirizine 10 mg PO DAILY 90 tabs 1RF J44.9 - Chronic obstructive pulmonary disease, unspecified, J45.909 - Unspecified asthma, uncomplicated, Z87.891 - Personal history of nicotine dependence esomeprazole magnesium 40 mg PO DAILY 90 caps 1RF K21.9 - Gastro-esophageal reflux disease without esophagitis gabapentin 100 mg PO BEDTIME 90 caps 1RF M51.36 - Other intervertebral disc degeneration, lumbar region
[2024-08-15 09:30] VITALS: BP 110/66; PULSE 74; RESP 16; TEMP 36.6; O2SAT 95; BMI 19.5
--- OUTSIDE RECORDS SUMMARY | 2024-08-15 12:33 | XMS_ITS | Data Portability ---
Author Organization [employer] [place] [facility] [employer] Address [address] [place] [address] Care Team Providers Care Carpenter Mine Name Role Phone HIM CCA OTHER Assessment Encounter Date Assessment Date Assessment LastModified by Organization Details LastModified Time 01/07/2024 01/07/2024 Mr. Mert Martinez is a 68yoM who is seen today for further evaluation of left eye discomfort. Mr. Martinez reports that last night he developed eye irritation with watery discharge primarily from his medial canthus. He then accidentally hit his eye on the arm of his 's zayda lift and this morning woke up with crusting of his left eye. No vision changes but has had ongoing watery discharge and discomfort, denies fevers/chills. VSS. Medic uploads picture that shows some irritation of the left eye. Will treat as mild conjunctivitis vs traumatic iritis. Erythromycin rx sent to pharmacy. [facility] Not available 01/07/2024 15:43:02 Plan of Treatment Reminders Order Date Submit Date Provider Last Modified By Organization Details Last Modified Time Details Appointments None recorded. Lab None recorded. Referral None recorded. Procedures None recorded. Surgeries None recorded. Imaging None recorded. Medication Orders erythromyci n 5 mg/gram (0.5 %) eye ointment 2023 024 [id number], [address] [place], [place], [phone], 14:14:40 Patient TargetsNo targets recorded. Patient InstructionsNo instructions recorded. Reason for Referral None Reported. Medical Equipment None Reported. Medications Name Sig Start Date Stop Date Status Note LastModified by Organization Details LastModified Time atorvastatin 40 mg tablet TAKE 1 TABLET BY MOUTH DAILY active Not Available Not Available Not Available albuterol sulfate 2.5 mg/3 mL (0.083 %) solution for nebulization USE 3 ML VIA NEBULIZER EVERY 6 HOURS NEEDED FOR WHEEZING OR SHORTNESS OF BREATH active Not Available Not Available No t Available cetirizine 10 mg tablet TAKE 1 TABLET BY MOUTH EVERY DAY active Not Available Not Available No t Available azithromycin 250 mg tablet active Not Available Not Available Not Available senna 8.6 mg tablet TAKE 1 TABLET BY MOUTH EVERY NIGHT AT BEDTIME active Not Available Not Available No t Available famotidine 40 mg tablet active Not Available Not Available Not Available prednisone 20 mg tablet TAKE 2 TABLETS BY MOUTH DAILY FOR 5 DAYS active Not Available Not Available N ot Available naproxen 250 mg tablet TAKE 1 TABLET BY MOUTH TWICE DAILY WITH FOOD OR MILK FOR 7 DAYS active Not Available Not Available No t Available ciclopirox 8 % topical solution APPLY 1 APPLICATION TO TOE NAIL EXTERNALLY EVERY DAY active Not Available Not Available No t Available phenazopyrid ine 100 mg tablet TAKE 1 TABLET BY MOUTH THREE TIMES DAILY NEEDED FOR SPASM active Not Available Not Available No t Available erythromycin 5 mg/gram (0.5 %) eye ointment APPLY 1 CM RIBBON INTO THE LOWER CONJUNCTIVA L SACS IN THE AFFTECTED EYE THREE TIMES DAILY active Not Available Not Available Not Available esomeprazole magnesium 40 mg capsule,nadira yed release TAKE 1 CAPSULE BY MOUTH DAILY active Not Available Not Available Not Available clotrimazole -betamethaso ne 1 %-0.05 % topical cream APPLY TOPICALLY TO THE AFFECTED AREA TWICE DAILY FOR 2 WEEKS active Not Available Not Available No t Available gabapentin 100 mg capsule TAKE 1 CAPSULE BY MOUTH AT BEDTIME active Not Available Not Available No t Available polyethylene glycol 3350 17 gram/dose oral powder DISSOLVE 17 GRAMS IN LIQUID AND TAKE BY MOUTH EVERY DAY active Not Available Not Available No t Available albuterol sulfate HFA 90 mcg/actuatio n aerosol inhaler INHALE 2 PUFFS BY MOUTH EVERY 6 HOURS NEEDED FOR WHEEZING OR SHORTNESS OF BREATH active Not Available Not Available No t Available diazepam 5 mg tablet active Not Available Not Available No t Available cholecalcife rol (vitamin D3) 50 mcg (2,000 unit) tablet TAKE 1 TABLET BY MOUTH EVERY DAY active Not Available Not Available No t Available Breo Ellipta 100 mcg-25 mcg/dose powder for inhalation INHALE 1 PUFF BY MOUTH DAILY active Not Available Not Available Not Available Incruse Ellipta 62.5 mcg/actuatio n powder for inhalation INHALE 1 PUFF BY MOUTH EVERY 24 HOURS DOSES SHOULD BE TAKEN AT LEAST 24 HOURS APART active Not Available Not Available Not Available Vitals Date Recorded Respiratory rate Heart rate Body temperature Systolic blood pressure Diastolic blood pressure Provider Name and Address Organization Details Last Updated DateTime 4 16 /min 88 /min 98.5 [degF] 110 mm[Hg] 70 mm[Hg] Not Available [facility] production 14:47:44 Social History None recorded. Functional Status None recorded. Mental Status None recorded. Family History Nothing Reported. Medical History No medical history recorded. Past Encounters Encounter ID Performer Location Encounter Start Date Encounter Closed Date Diagnosis/Indication Diagnosis SNOMED-CT Code Diagnosis ICD10 Code Diagnosis Note [id number] Sharita Brantley MD [facility] - [facility] [address] [place] [address] 01/07/2024 14:11:41 01/07/2024 16:46:59 Acute conjunctivitis of left eye [id number] 07632 H10.32 Health Concerns Section Related Observation LastModified by Organization Detai ls LastModified Time None Recorded Concern Status LastModified by Organization Details LastModified Time None Recorded Advance Directives Directive None Recorded Payers Encounter Date Sequence Insurance Name Policy Number Policy Castro Covered Member ID Castro Member ID Guarantor Name 01/07/2024 1 [facility] - DOS ON OR AFTER 2022 - DUAL ELIGIBLE - SKILLED NURSING OPTIONS AND ONE CARE (MEDICARE REPLACEMENT/ADV ANTAGE - HMO) Mert Martinez [id number] Mert Martinez Notes Date Note Type Note Provider Name and Address Organization Details Recorded Time 01/07/2024 text/html [facility] Nurse Triage Notes (Alayna March): Reason For Request: Patient woke up with possible pink eye, pus coming out of eye Chief Complaints: Pain PMH: COPD/Asthma, Other Allergies: No Known Comments: Left eye drainage since yesterday. Drainage is white and watery fluid. Eye is red and irritated. Has implants both eyes. ................... ................... ................... ................... ................... ................... ................... ........ Balance Truer Note From Mary Bainse: Community Balance Truer Jose Rafael Bains SC6 dispatched to a [facility] for a 68 yom C/O left eye redness. Upon arrival, the pt was ambulatory, DICKEY X4, in no apparent distress. He stated that the night prior, his left eye was abnormally teary, and that the tears were white/clear. He reported that after he noticed this, he accidentally whacked his left eye on the arm of his 's zayda lift. No vision changes or trauma to eye or orbit on inspection/palpatio n. Left globe red, conjunctiva not red or swollen compared to right eye-picture in [facility]. Pt reported lots of crust on his left eye when he woke up that AM. He denied any itching. He denied FIELD, dizziness, fever, cough, sore throat, nose or ear discomfort, CP, SOB, abd pain, N/V/D, or urinary S/S. [facility] consulted; pt was given rx for erythromycin, and instructions for its use was discussed. Red flags discussed. He was instructed to call his Opthamologist if he did not see improvement after tx. ................... ................... ................... ................... ................... ................... ................... ........ Disposition: Braulio Brantley MD [address] [facility],[address], [place], [address], [employer] 01/07/2024 15:43:06
== END 2024-08-15 09:57 | disposition home or self-care (01) ==
PROVIDERS: PCP Nurse Practitioner Family; Visit Provider Nurse Practitioner Family
DX: E78.5 Hyperlipidemia, unspecified (principal); Z12.5 Encounter for screening for malignant neoplasm of prostate

== ENCOUNTER → 2024-08-15 09:28 | Outpatient (BNVA) | payer OTHER, SELFPAY | PROVIDERS: PCP Nurse Practitioner Family; Visit Provider Nurse Practitioner Family | DX: E78.5 Hyperlipidemia, unspecified (principal) | CPT/HCPCS: 96127; 99212 ==

== ENCOUNTER 2024-10-16 08:12 | Outpatient (AMB) | payer OTHER, SELFPAY ==
--- NOTE | 2024-10-16 08:21 | A.OFFVIS_ITS ---
Vital Signs 10/16/24 08:23 Height 5 ft 11 in Weight 139 lb 12.369 oz BMI 19.5 BP 142/66 H Blood Pressure Location Rt brachial Position Sitting Pulse 58 Pulse Source Pulse Oximeter Pulse Oximetry (%) 99 Oxygen Delivery Method Room Air Intake Visit Reasons: stomach pain Intake Note: ESTABLISHED PATIENT for s/p duo w/ TH. SYLVIA 02/2023. No FUV ever made s/p duo? Chief Complaint; C/O nausea upon any intake, denies vomiting, worsening reflux w/ dysphagia, fecal abn involving intermittent diarrhea and constipation despite current interventions. Pt verified medications list visually. Independent Beauty Consultant Required: No Accompanied by: Self / Same As Patient Allergies No Known Allergies [No Known Allergies*] Allergy (Verified 10/16/24 08:22) HPI HPI stomach pain: Details: LAST VISIT 02/17/2023 Chronic GERD Patient reports acid reflux despite taking pantoprazole. He can start taking Nexium daily. Discussed with patient avoiding dietary triggers in late night snacking. Staying upright for minimal 3 hours after meals discussed with patient. Screening for colon cancer Patient denies any GI, cardiac or respiratory symptoms.? Patient reports of symptoms of acid reflux as well as constipation. Denies any issues with anesthesia in the past.? Patient has a history of sleep apnea and using CPAP every night.? No history infectious diseases in the past or present.? Not on any anticoagulation therapy.? No family or personal history of colon cancer or polyps.? Patient denies melena, hematochezia, unintentional weight loss or ribbon like stools.? Constipation History of constipation will start patient on MiraLax in the morning and Senokot at bedtime. Patient will return in 4 weeks, sooner on as needed basis. He is agreeable to this plan and verbalizes understanding of instructions. He was given the opportunity to ask questions all questions answered. ? Thank you for allowing me to participate in his care Plan Medications New esomeprazole magnesium (Nexium) 40 mg PO DAILY 30 caps 5RF K21.9 - Gastro- esophageal reflux disease without esophagitis sennosides (Natural Senna Laxative) 8.6 mg PO BEDTIME 90 tabs 3RF constipation K59.00 - Constipation, unspecified polyethylene glycol 3350 (Miralax) 17 grams PO DAILY 510 grams 2RF Discontinued pantoprazole Discontinued Reason: Doctor's Order 40 mg PO DAILY 90 tabs 0RF K21.9 - Gastro- esophageal reflux disease without esophagitis UPPER ENDOSCOPY AND COLONOSCOPY Findings: Larynx:normal Esophagus: GE junction at 43 cm, diaphragm hiatus at 43 cm, edema, bogginess and erythema at GEJ with erosions, bx taken, balloon dilation done at UES to 19 mm with resistance felt. Stomach: Patchy erythema and scarring. Biopsies were obtained. Grade 2 flap valve on retroflexed examination of the cardia. Duodenum: mil duodenitis, bx taken Intervention: Biopsies as noted above, balloon dilation COLONOSCOPY Instrument: Olympus variable stiffness pediatric scope 190L Colonoscopy Monitoring: Vital signs and clinical assessment, continuous EKG monitoring, Pulse oximetry, Carbon Dioxide monitoring and blood pressure monitoring were done throughout the procedure. Colon withdrawal time was 28 minutes. Procedure: The patient was placed in the left lateral decubitis position and pre-procedure medications were administered. After a digital rectal examination of the ano-rectum, the video colonoscope was inserted into the rectum and advanced through the colon to the cecum/TI. The colonoscope was slowly withdrawn in a retrograde panoramic fashion and the colon mucosa was carefully examined including a retroflexed view of the rectum. Findings and interventions are described below. Procedure Difficulty:moderate Findings: Terminal Ileum-normal Cecum: 12-15 mm sessile polyp raised with eleview injection and then removed with hot snare with ablation of edges and one clip applied. 4-6 mm sessile polyp removed with cold snare Ascending Colon: 6-8 mm sessile polyp removed with cold snare Transverse Colon -normal Descending Colon: x 2 sessile polyps 5-8 mm removed with cold snare Sigmoid Colon: x 1 sessile polyp 6-8 mm removed with cold snare, moderate diverticulosis Rectum: Retroflexion with small internal hemorrhoids, grade I Anorectum - normal Colon preparation: [place] Bowel Preparation Scale Right colon; 2 Transverse colon: 2 Left colon; 2 (0 = Unprepared colon segment with mucosa not seen due to solid stool that cannot be cleared. 1 = Portion of mucosa of the colon segment seen, but other areas of the colon segment not well seen due to staining, residual stool and/or opaque liquid. 2 = Minor amount of residual staining, small fragments of stool and/or opaque liquid, but mucosa of colon segment seen well. 3 = Entire mucosa of colon segment seen well with no residual staining, small fragments of stool or opaque liquid) Impression and Post Procedure Diagnosis: Endoscopy Findings: erosive esophagitis gastritis duodenitis Colonoscopy Findings: diverticulosis colon polyps internal hemorrhoids Plan: Await Pathology results Repeat Colonoscopy in 12 months or earlier if clinically indicated High fiber diet leaflet avoid straining at stool, epsom salts and sitz bath, anusol supps or cream check if taking PPI correctly PATHOLOGY RESULTS Diagnosis A. Duodenum, biopsy: Duodenal mucosa within normal limits; preserved villous architecture and no increased intraepithelial lymphocytes seen. B. Stomach, biopsy: Gastric antral and body mucosa within normal limits; negative for Helicobacter pylori, intestinal metaplasia and dysplasia. C. Gastroesophageal junction, biopsy: Squamocolumnar junctional mucosa with mild chronic active inflammation; negative for intestinal metaplasia and dysplasia. D. Colon, cecum, polypectomy: Tubular adenoma; negative for high-grade dysplasia. E. Colon, ascending, polypectomy: Tubular adenoma; negative for high-grade dysplasia. F. Colon, descending, polypectomy x2: Tubular adenoma (2); negative for high- grade dysplasia. G. Colon, sigmoid, polypectomy: Tubular adenoma; negative for high-grade dysplasia TODAY'S VISIT Patient is here today for request visit. Patient has not followed up in the office as he was busy taking care of his . Patient reports that he is caring for his who is ill and goes all of her appointments. Patient reports that his also was hospitalized he was taking care of her. Currently he is taking Nexium in the morning and famotidine at bedtime. He continues to have epigastric pain no matter what he eats. Patient reports drinking coffee in the morning sometimes causes severe epigastric pain that he gets very nauseous and many times he vomits. Patient is using regular cream air in his coffee. Patient continues to feel constipated. Takes sentinel every day, however sometimes no bowel movements for 2-3 days. Reports left lower quadrant pain. Denies melena, hematochezia. Patient continues to smoke cigarettes daily [facility] Medical History Normal esophagogastroduodenoscopy (EGD) DDD (degenerative disc disease), lumbar COPD (chronic obstructive pulmonary disease) Renal calculi Bladder cancer Bilateral cataracts Muscle pain High cholesterol Asthma GERD (gastroesophageal reflux disease) Surgical History History of transurethral resection of bladder tumor (TURBT) History of carpal tunnel release History of testicular surgery Hx of lithotripsy History of esophagogastroduodenoscopy (EGD) H/O colonoscopy Hx of cystoscopy Social History Housing: Apartment Patient Tobacco Use Status: Former Tobacco user Years Smoked: quit 2 years ago e-Cigarette/Vaping Use: Never Used Second Hand Smoke Exposure: No service: No Current occupational status: disabled Cognitive needs: No Hearing needs: No Vision needs: No Review of Systems Const Denies weight gain and Denies weight loss ENT Reports no additional complaints, Reports dysphagia and Denies odynophagia Card Reports no additional complaints Resp Reports no additional complaints GI Reports abdominal pain (Epigastric, LLQ), Denies belching, Denies melena, Denies bloating, Denies change in bowel habits, Reports constipation, Reports dysphagia, Denies excessive flatus, Denies dyspepsia, Reports heartburn, Denies diarrhea, Denies loose stools, Reports nausea, Denies odynophagia and Denies vomiting Reports no additional complaints Musc Reports no additional complaints Neuro Reports no additional complaints Psych Reports no additional complaints Endo Reports no additional complaints Physical Exam Const General: healthy appearing, no acute distress and well developed Nutritional Appearance: well nourished Orientation/consciousness: patient oriented x3 Resp Effort & Inspection: normal respiratory effort, able to speak in complete sentences, no tracheal deviation and symmetric chest movement Auscultation: clear to auscultation bilaterally Cardio Rate: regular rate GI Inspection: Yes normal to inspection and No distended Palpation (GI): Soft to palpation, not firm, nontender and No hepatosplenomegaly present Auscultation: normal bowel sounds General: Yes no CVA tenderness Back/Spine/Pelvis Back: no CVA tenderness Skin General skin exam: elasticity normal, turgor normal and dry skin Neuro General: patient oriented x3 Psych Appearance: grossly normal Mental Status: mental status grossly normal Assessment & Plan Assessment & Plan (1) Chronic GERD: Code(s): K21.9 - Gastro-esophageal reflux disease without esophagitis Category: Medical (2) Constipation: Code(s): K59.00 - Constipation, unspecified Qualifiers: Constipation type: slow transit constipation Qualified Code(s): K59.01 - Slow transit constipation (3) Dysphagia: Code(s): R13.10 - Dysphagia, unspecified Qualifiers: Dysphagia type: pharyngoesophageal phase Qualified Code(s): R13.14 - Dysphagia, pharyngoesophageal phase Plan Will change his regimen, patient will start taking lansoprazole in the morning sucralfate it noon and at bedtime. Avoid dietary triggers in late night snacking. Staying upright for minimal 3 hours after meals discussed with patient. Patient is was encouraged to quit smoking. Currently on motivated. Will start him on Dulcolax daily. Patient will be sent for upper endoscopy and colonoscopy. Message sent to Surgical schedules, however we will send him for upper GI series with barium swallow to evaluate for dysphagia and reflux. Patient will follow-up in 3 months in the office so she can discuss going for upper endoscopy and colonoscopy and re-evaluate. Patient is agreeable to current plan of care and verbalizes understanding of instructions. He was given the opportunity to ask questions and all questions answered. Thank you for allowing me to participate in his care Orders: Orders [place] upper GI w Ba Swallow Today K21.9 - Gastro-esophageal reflux disease without esophagitis Medications: New bisacodyl (Dulcolax (bisacodyl)) 10 mg (2 x 5 mg) PO BEDTIME 180 tabs 4RF sucralfate Please take it at noon time and at bedtime 10 mL PO BID 400 mL 3RF K21.9 - Gastro-esophageal reflux disease without esophagitis lansoprazole 30 mg PO DAILY 30 caps 3RF K21.9 - Gastro-esophageal reflux disease without esophagitis Discontinued esomeprazole magnesium Discontinued Reason: Doctor's Order 40 mg PO DAILY 90 caps 1RF K21.9 - Gastro-esophageal reflux disease without esophagitis sennosides (Natural Senna Laxative) Discontinued Reason: Doctor's Order 17.2 mg (2 x 8.6 mg) PO BEDTIME 60 tabs 3RF constipation K59.00 - Constipation, unspecified Coding Level of Care Code Est Pt Level 4 (79999) Complex EM visit Add On G2211 Diagnoses Chronic GERD K21.9 Slow transit constipation K59.01 Constipation type: slow transit constipation Pharyngoesophageal dysphagia R13.14 Dysphagia type: pharyngoesophageal phase Time Spent (min) 40 Comment 25 minutes spent with patient and additional 15 minutes spent reviewing his records
--- OUTSIDE RECORDS SUMMARY | 2024-10-16 08:21 | XMS_ITS | Data Portability ---
Author Organization [employer] [place] [employer] Address [address] [place] [address] Care Team Providers Care Water Plant Maintenance Mechanic Name Role Phone HIM CCA OTHER Assessment [...] traumatic iritis. Erythromycin rx sent to pharmacy. [facility] Not available 01/07/2024 15:43:02 Plan of Treatment Reminders Order Date Submit Date Provider Last Modified By Organization Details Last Modified Time Details Appointments None recorded. Lab None recorded. Referral None recorded. Procedures None recorded. Surgeries None recorded. Imaging None recorded. Medication Orders erythromyci n 5 mg/gram (0.5 %) eye ointment 2023 024 [id number], [address] [place], [place], [phone], 14:14:40 Patient TargetsNo targets recorded. Patient InstructionsNo [...] SNOMED-CT Code Diagnosis ICD10 Code Diagnosis Note [id number] Sharita Brantley MD Main - [facility] [address] [place] [address] 01/07/2024 14:11:41 01/07/2024 16:46:59 Acute conjunctivitis of left eye [id number] 24152 H10.32 Health Concerns Section Related Observation LastModified by Organization Detai ls LastModified Time None Recorded Concern Status LastModified by Organization Details LastModified Time None Recorded Advance Directives Directive None Recorded Payers Encounter Date Sequence Insurance Name Policy Number Policy Castro Covered Member ID Castro Member ID Guarantor Name 01/07/[address] [facility] - DOS ON OR AFTER 2022 - DUAL ELIGIBLE - PRISON OPTIONS AND ONE CARE (MEDICARE REPLACEMENT/ADV ANTAGE - HMO) Mert Martinez [id number] Mert Martinez Notes Date Note Type Note [...] ................... ................... ................... ................... ................... ................... ........ Fire Services Plumber Note From Mary Bainse: Community Fire Services Plumber Jose Rafael Bains SC6 dispatched to a [facility] for a 68 yom C/O left eye [...] or swollen compared to right eye-picture in [facility]. Pt reported lots of crust on his left eye when he woke up that AM. He denied any itching. He denied FIELD, dizziness, fever, cough, sore throat, nose or ear discomfort, CP, SOB, abd pain, N/V/D, or urinary S/S. [facility]; pt was given rx for erythromycin, and instructions for its use was discussed. Red flags discussed. He was instructed to call his Opthamologist if he did not see improvement after tx. ................... ................... ................... ................... ................... ................... ................... ........ Disposition: Braulio Brantley MD [address] [facility],[address], [place], [address], [employer] 01/07/2024 15:43:06
[2024-10-16 08:23] VITALS: BP 142/66; PULSE 58; O2SAT 99; BMI 19.5
== END 2024-10-16 09:02 | disposition home or self-care (01) ==
LOC: HO.HGI 08:13
PROVIDERS: PCP Nurse Practitioner Family; Visit Provider Nurse Practitioner Family
DX: K21.9 Gastro-esophageal reflux disease without esophagitis (principal); K59.01 Slow transit constipation; R13.14 Dysphagia, pharyngoesophageal phase
CPT/HCPCS: 99214; G2211

== ENCOUNTER → 2024-10-16 08:12 | Outpatient (BNVA) | payer OTHER, SELFPAY | PROVIDERS: PCP Nurse Practitioner Family; Visit Provider Nurse Practitioner Family | DX: K59.01 Slow transit constipation (principal); K21.9 Gastro-esophageal reflux disease without esophagitis; R13.14 Dysphagia, pharyngoesophageal phase | CPT/HCPCS: 99212 ==

== ENCOUNTER 2024-10-22 09:56 | Outpatient (AMB) | payer OTHER, SELFPAY ==
--- NOTE | 2024-10-22 09:56 | A.OFFVIS_ITS ---
Intake Visit Reasons: H&P OR Cystoscopy Intake Note: Patient is present for H&P OR CYSTOSCOPY Urology Medication:NONE Antibiotic Allergy:NONE Blood Thinner:NONE [employer] Ax Consultant Required: No Allergies No Known Allergies [No Known Allergies*] Allergy (Verified 12/16/24 11:58) HPI Comments Details: Mert is a pleasant male. He is a patient Dr. Carroll. He seen for the following urologic conditions - superficial bladder cancer - nephrolithiasis Telemedicine Evaluation 15 min Consultation FibeRio Stuart Video attempted Plan for upcoming cystoscopy questions answered requires under sedation since prior PTSD Superficial bladder cancer 02/05 TURBT - required stent since close to ureteric orifice Initial presentation abnormality noted on CT scan TURBT - 02/05 - required stent since lesion located on top of left ureteric orifice Pathology - T1 low-grade Has grade 2 trabeculations on initial cystoscopy Imaging - 01/06 CT scan 1.5 cm lesion on left UVJ, no evidence hydronephrosis, mildly enlarged prostatic gland Longstanding cigarette smoker Cystoscopy - 12/07 NAD ? IC Nephrolithiasis Prior ESWL Surveillance [facility] Medical History (Updated 12/12/24 @ 12:38 by Guadalupe Hardy RN) Sleep apnea Normal esophagogastroduodenoscopy (EGD) DDD (degenerative disc disease), lumbar COPD (chronic obstructive pulmonary disease) Renal calculi Bladder cancer Bilateral cataracts Muscle pain High cholesterol Asthma GERD (gastroesophageal reflux disease) Surgical History History of transurethral resection of bladder tumor (TURBT) History of carpal tunnel release History of testicular surgery Hx of lithotripsy History of esophagogastroduodenoscopy (EGD) H/O colonoscopy Hx of cystoscopy Social History Housing: Apartment Patient Tobacco Use Status: Former Tobacco user Tobacco use type: Cigarette Years Smoked: quit 2 years ago e-Cigarette/Vaping Use: Never Used Second Hand Smoke Exposure: No Use of substances other than those prescribed or required for medical reasons: Yes Substance Use Frequency: Daily Have you been hit, kicked, punched, or otherwise hurt by someone within the past year? If so, by whom?: No Are you DNR?: No Advance Directives: No Advance Directives Information Provided: Yes service: No Current occupational status: disabled Cognitive needs: No Hearing needs: No Vision needs: No Review of Systems Const All systems reviewed & are unremarkable except as noted in HPI and below Reports no additional complaints Resp Reports no additional complaints GI Reports no additional complaints Reports as per HPI Musc Reports no additional complaints Physical Exam Telemedicine evaluation Appropriate responses Regular breathing rate and rhythm HEENT Head: Yes normal to inspection Ears: hearing grossly normal bilaterally Eyes General: appearance normal, both eyes and all related structures Neck Neck: Yes normal visual inspection Chest Chest palpation & inspection: normal inspection of the chest Resp Effort & Inspection: normal respiratory effort and able to speak in complete sentences Telehealth Telehealth Telehealth Platform: FibeRio Location of provider rendering services: practice address Location of patient: address on file Patient Identification confirmed using: Name, : Yes Telehealth method: video Patient verbally consented to treatment: Yes Patient verbally consented to billing insurance company: Yes Patient informed of any privacy concerns related to visit: Yes Minutes spent on Phone/Video with Pt.: 15 Assessment & Plan Assessment & Plan (1) Bladder cancer: Comment: 02/05 TURBT T1LG Code(s): C67.9 - Malignant neoplasm of bladder, unspecified Category: Medical Plan Risks, benefits and alternatives to therapy were discussed. These include but are not limited to infection, bleeding, damage to local organs and tissues, need for further interventions. Anesthetic risks regarding cardiac arrhythmia, blood clots, and potential mortality were discussed. The patient understands the typical recovery time and the outpatient nature of the procedure. After consideration of these risks the patient gives full informed consent and they wish to move ahead with the procedure. cystoscopy Patient Instructions: This note is constructed using voice recognition software. While every effort has been made to ensure accuracy carport erector errors may have been included. Imaging studies, laboratory and physical exam results were discussed and reviewed in detail. No major barriers to patient understanding were identified. An opportunity to ask questions regarding the treatment plan was provided. All questions were answered. The patient expressed understanding and agreement with the above treatment plan. The patient is aware they should contact our office by phone for worsening of their current condition or the appearance of new urologic symptoms. Compliance is encouraged with any medications and followup testing that is ordered. It is a privilege to participate in the urologic care of your patient. If you have any questions or concerns regarding treatment for the above conditions, or other urologic issues, please do not hesitate to contact me. The office telephone contact is [phone]. Sincerely, Dr Vladimir Puentes MD, [facility] - Urology Compassionate Specialist Care for the Genitourinary System Coding Level of Care Code Tele Est Pt Level 3 (77809) Complex EM visit Add On G2211 Diagnoses Bladder cancer C67.9
--- OUTSIDE RECORDS SUMMARY | 2024-10-22 11:28 | XMS_ITS | Data Portability ---
Author Organization [employer] [employer] [facility] [employer] Address [address] [place] [address] Care Team Providers Care Stone Planer Name Role Phone HIM CCA OTHER Assessment [...] traumatic iritis. Erythromycin rx sent to pharmacy. [facility] Not available 01/07/2024 15:43:02 Plan of Treatment Reminders Order Date Submit Date Provider Last Modified By Organization Details Last Modified Time Details Appointments None recorded. Lab None recorded. Referral None recorded. Procedures None recorded. Surgeries None recorded. Imaging None recorded. Medication Orders erythromyci n 5 mg/gram (0.5 %) eye ointment 2023 024 [id number], [address] [place], [phone], 14:14:40 Patient TargetsNo targets recorded. Patient InstructionsNo [...] SNOMED-CT Code Diagnosis ICD10 Code Diagnosis Note [id number] Sharita Brantley MD Main - [facility] [address] [place] [address] 01/07/2024 14:11:41 01/07/2024 16:46:59 Acute conjunctivitis of left eye [id number] H10.32 Health Concerns Section Related Observation LastModified by Organization Detai ls LastModified Time None Recorded Concern Status LastModified by Organization Details LastModified Time None Recorded Advance Directives Directive None Recorded Payers Encounter Date Sequence Insurance Name Policy Number Policy Castro Covered Member ID Castro Member ID Guarantor Name 01/07/2024 1 [facility] - DOS ON OR AFTER 2022 - DUAL ELIGIBLE - ASSISTED OPTIONS AND ONE CARE (MEDICARE REPLACEMENT/ADV ANTAGE - HMO) Mert Martinez [id number] Mret Martinez Notes Date Note Type Note Provider [...] ................... ................... ................... ................... ................... ................... ........ Brush Trimming Machine Setter Note From Mary Bainse: Community Brush Trimming Machine Setter Jose Rafael Bains SC6 dispatched to a [facility] for a 68 yom C/O left eye [...] or swollen compared to right eye-picture in [facility]. Pt reported lots of crust on his left eye when he woke up that AM. He denied any itching. He denied FIELD, dizziness, fever, cough, sore throat, nose or ear discomfort, CP, SOB, abd pain, N/V/D, or urinary [facility] [place] consulted; pt was given rx for erythromycin, and instructions for its use was discussed. Red flags discussed. He was instructed to call his Opthamologist if he did not see improvement after tx. ................... ................... ................... ................... ................... ................... ................... ........ Disposition: Braulio Brantley MD [address] [facility],[address], [place], [address], [employer] 01/07/2024 15:43:06
== END 2024-10-22 11:06 | disposition home or self-care (01) ==
LOC: HO.HUSH 09:56
PROVIDERS: PCP Nurse Practitioner Family; Visit Provider Urology
DX: C67.9 Malignant neoplasm of bladder, unspecified (principal)
CPT/HCPCS: 99213; G2211

== ENCOUNTER 2024-11-28 09:22 | Outpatient (REF) | payer OTHER, SELFPAY ==
[2024-11-28 13:29] LABS: MANUAL DIFF FLAG NO
[2024-11-28 13:44] LABS: Basophils Absolute Auto 0.1 X10*3/uL (0.0-0.2); Basophils Percent Auto 0.5 % (0-2); Eosinophils Absolute Auto 0.1 X10*3/uL (0.0-0.4); Eosinophils Percent Auto 0.6 % (0-4); Hematocrit 49.3 % (42.0-52.0); Hemoglobin 16.1 g/dl (14.0-18.0); Imm Gran Abs Auto 0.04 X10*3/uL (0.00-0.03); Imm Gran Pct Auto 0.4 % (0.0-0.4); Lymphocytes Absolute Auto 1.3 X10*3/uL (1.2-4.9); Lymphocytes Percent Auto 11.7 % (20-40); Mean Corpuscular HGB Conc 32.7 g/dl (31.0-36.0); Mean Corpuscular Hemoglobin 30.6 pg (27.0-33.0); Mean Corpuscular Volume 93.7 fL (80.0-98.0); Mean Platelet Volume 9.7 fL (9.4-12.4); Monocytes Absolute Auto 0.8 X10*3/uL (0.1-1.2); Monocytes Percent Auto 7.2 % (2-11); Neutrophils Percent Auto 79.6 % (45-73); Platelet Count 241 X10*3/uL (160-400); Red Blood Count 5.26 X10*6/uL (4.60-5.80); Red Cell Distribution Width 13.3 % (11.0-16.0); White Blood Count 11.4 X10*3/uL (4.8-10.8)
[2024-11-28 14:07] LABS: Prostate Specific Antigen Scr 4.75 ng/mL (<0.05-4.0)
[2024-11-28 14:15] LABS: Alanine Aminotransferase 18 U/L (0-40); Albumin Level 4.2 g/dL (3.5-5.0); Alkaline Phosphatase 114 U/L (39-117); Anion Gap 11 (12-20); Aspartate Amino Transferase 24 U/L (5-37); Bilirubin Total 0.9 mg/dL (0.0-1.0); Blood Urea Nitrogen 20 mg/dL (9-16); Calcium 9.4 mg/dL (8.4-10.2); Carbon Dioxide 26 mmol/L (22-29); Chloride 112 mmol/L (96-108); Cholesterol 129 mg/dL (<200); Estimated Glomerular Filt Rate > 60; Glucose Fasting 100 mg/dL (60-99); HDL Cholesterol 38 mg/dL (>40); LDL Cholesterol Calculated 80 mg/dL (<100); Potassium 4.1 mmol/L (3.3-5.1); Sodium 145 mmol/L (135-145); Total Protein 6.5 g/dL (6.5-8.0); Triglycerides 59 mg/dL (<150)
[2024-11-28 14:20] LABS: TSH reflex Free T4 0.81 uIU/mL (0.32-4.0)
== END 2024-11-28 09:23 | disposition home or self-care (01) ==
LOC: HO.HMGCLDS 09:22
PROVIDERS: PCP Nurse Practitioner Family; Visit Provider Nurse Practitioner Family
DX: M54.50 Low back pain, unspecified (principal); E78.5 Hyperlipidemia, unspecified; Z12.5 Encounter for screening for malignant neoplasm of prostate
CPT/HCPCS: 36415; 80053; 80061; 81003; 84153; 84443; 85025; 99212

== ENCOUNTER 2024-11-28 09:22 | Outpatient (AMB) | payer OTHER, SELFPAY ==
--- NOTE | 2024-11-28 09:25 | AM.OFFWIN_ITS ---
Intake Vital Signs 11/28/24 09:29 Weight 137 lb 2 oz BP 120/84 Blood Pressure Location Rt brachial Position Sitting Pulse 81 Pulse Source Pulse Oximeter Pulse Oximetry (%) 97 Oxygen Delivery Method Room Air Intake Visit Reasons: EP Severe pain lower back Intake Note: Patient here for lower back pain that radiates down the leg that has been present for a couple of days. Patient Tobacco Use Status: Former Tobacco user Allergies No Known Allergies [No Known Allergies*] Allergy (Verified 11/28/24 09:30) Do you need a note to return to daycare/school/sports/work: No HPI HPI Comments History of Present Illness Details 69 y/o Male patient who presents to the walk in clinic with c/o lower back pain that radiates down the leg that has been present for a couple of days. Pt reports few days ago, he was lifting his from the chair to Bed, and woke up the next day with severe Back pain. Denies bowel or urinary symptoms. He does have chronic h/o Lower back pain associated with Kidney stones. [facility] Medical History Normal esophagogastroduodenoscopy (EGD) DDD (degenerative disc disease), lumbar COPD (chronic obstructive pulmonary disease) Renal calculi Bladder cancer Bilateral cataracts Muscle pain High cholesterol Asthma GERD (gastroesophageal reflux disease) Surgical History History of transurethral resection of bladder tumor (TURBT) History of carpal tunnel release History of testicular surgery Hx of lithotripsy History of esophagogastroduodenoscopy (EGD) H/O colonoscopy Hx of cystoscopy Social History Housing: Apartment Patient Tobacco Use Status: Former Tobacco user Years Smoked: quit 2 years ago e-Cigarette/Vaping Use: Never Used Second Hand Smoke Exposure: No service: No Current occupational status: disabled Cognitive needs: No Hearing needs: No Vision needs: No Review of Systems Const All systems reviewed & are unremarkable except as noted in HPI and below Physical Exam Vital Signs: Last Vital Signs Pulse 81 11/28/24 09:29 BP 120/84 11/28/24 09:29 Pulse Ox 97 11/28/24 09:29 Oxygen Delivery Method Room Air 11/28/24 09:29 Const General: no acute distress; No comfortable Nutritional Appearance: thin Orientation/consciousness: patient oriented x3 Back/Spine/Pelvis Back: back tenderness Thoracic/Lumbar Spine: pain with thoraco-lumbar ROM, paraspinal muscle tenderness, thoraco-lumbar spasm and lumbar spinal tenderness Neuro General: patient oriented x3, gait normal and moves all extremities Psych Speech and movement: Normal speech and movement present Results AMB Urinalysis, Automated UA Leukoctes 0 Adelfo/uL Last Edit by Servando Baires [facility] on 11/28/24 10:16 UA Nitrite Negative Last Edit by TabithaArline Baires, [facility] on 11/28/24 10:16 UA Urobilinogen 1 mg/dL Last Edit by TabithaArline Baires, [facility] on 11/28/24 10: 16 UA Protein 15 mg/dL Last Edit by TabithaKalen Baires, [facility] on 11/28/24 10:16 UA pH 7.5 Last Edit by TabithaArline Baires [facility] on 11/28/24 10:16 UA Blood 0 Min/uL Last [facility] on 11/28/24 10:16 UA Specific [place] 1.010 Last Edit by Servando Baires [facility] on 11/28/24 10:16 UA Ketone Negative Last Edit by [facility] on 11/28/24 10:16 UA Bilirubin 0 mg/dL Last Edit by [facility] Viry [facility] on 11/28/24 10:16 UA Glucose 0 mg/dL Last Edit by [facility] on 11/28/24 10:16 Results Reviewed Results Reviewed: Laboratory Last Values Urine pH (Auto) 7.5 11/28/24 10:15 Specific [place] (Auto) 1.010 11/28/24 10:15 Urine Protein (Auto) 15 mg/dL 11/28/24 10:15 Glucose (UA)(Auto) 0 mg/dL 11/28/24 10:15 Urine Ketones (Auto) Negative 11/28/24 10:15 Urine Blood (Auto) 0 Min/uL 11/28/24 10:15 Urine Nitrite (Auto) Negative 11/28/24 10:15 Urine Bilirubin (Auto) 0 mg/dL 11/28/24 10:15 Urine Urobilinogen (Auto) 1 mg/dL 11/28/24 10:15 Leukocyte Esterase (Auto) 0 Adelfo/uL 11/28/24 10:15 Assessment & Plan Assessment & Plan (1) Low back pain radiating to both legs: Code(s): M54.5 - Low back pain Plan: Rapid urinalysis negative. Ordered Pain management. NSAIDs, Lidocaine Patches and muscle relaxants. Orders: Orders AMB Urinalysis Automated Today Z13.9 - Encounter for screening, unspecified Referrals Pain Management Referral M54.5 - Low back pain Medications: New ibuprofen 800 mg PO Q8H 30 tabs 0RF M54.5 - Low back pain cyclobenzaprine 10 mg PO BEDTIME 14 tabs 0RF M54.5 - Low back pain lidocaine 5% leave on most painful area for up to 12 hrs 1 patch topical DAILY 30 ea 0RF M54.5 - Low back pain Coding Level of Care Code Est Pt Level 4 (11512) Diagnoses Low back pain radiating to both legs M54.5 Time Spent (min) 20
[2024-11-28 09:29] VITALS: BP 120/84; PULSE 81; O2SAT 97
--- OUTSIDE RECORDS SUMMARY | 2024-11-28 09:57 | XMS_ITS | Data Portability ---
Author Organization [employer] [employer] Address [address] [place] [address] Care Team Providers Care Vocational Adviser Name Role Phone HIM CCA OTHER Assessment [...] traumatic iritis. Erythromycin rx sent to pharmacy. [email or web address] Not available 01/07/2024 15:43:02 Plan of Treatment Reminders Order Date Submit Date Provider Last Modified By Organization Details Last Modified Time Details Appointments None recorded. Lab None recorded. Referral None recorded. Procedures None recorded. Surgeries None recorded. Imaging None recorded. Medication Orders erythromyci n 5 mg/gram (0.5 %) eye ointment 2023 024 [id number], [address] [place], [place], [phone], 14:14:40 Patient TargetsNo targets recorded. Patient InstructionsNo [...] SNOMED-CT Code Diagnosis ICD10 Code Diagnosis Note [id number] Sharita Brantley MD Main - [facility] [address] [place] [address] 01/07/2024 14:11:41 01/07/2024 16:46:59 Acute conjunctivitis of left eye [id number] 24395 H10.32 Health Concerns Section Related Observation LastModified by Organization Detai ls LastModified Time None Recorded Concern Status LastModified by Organization Details LastModified Time None Recorded Advance Directives Directive None Recorded Payers Insurance Date Sequence Insurance Name Policy Number Policy Castro Covered Member ID Castro Member ID Guarantor Name 01/07/2024 1 [facility] - DOS ON OR AFTER 2022 - DUAL ELIGIBLE - USP OPTIONS AND ONE CARE (MEDICARE REPLACEMENT/ADV ANTAGE - HMO) Mert Martinez [id number] Mert Martinez Notes Date Note Type Note [...] ................... ................... ................... ................... ................... ................... ........ Motor Vehicle Light Assembler Note From Mary Bainse: Community Motor Vehicle Light Assembler Jose Rafael Bains SC6 dispatched to a [...] or swollen compared to right eye-[facility]. Pt reported lots of crust on his left eye when he woke up that AM. He denied any itching. He denied FIELD, dizziness, fever, cough, sore throat, nose or ear discomfort, CP, SOB, abd pain, N/V/D, or urinary S/S. [facility] consulted; pt was given rx for erythromycin, and instructions for its use was discussed. Red flags discussed. He was instructed to call his Opthamologist if he did not see improvement after tx. ................... ................... ................... ................... ................... ................... ................... ........ Disposition: Braulio Brantley MD [address] [facility],[address], [place], [address], [facility] [employer] 01/07/2024 15:43:06
== END 2024-11-28 10:35 | disposition home or self-care (01) ==
PROVIDERS: PCP Nurse Practitioner Family; Visit Provider Nurse Practitioner Family
DX: M54.50 Low back pain, unspecified (principal); Z13.9 Encounter for screening, unspecified

== ENCOUNTER 2024-12-04 09:01 | Outpatient (REF) | payer OTHER, SELFPAY ==
--- NOTE | ~2024-12-04 | XR_ITS ---
EXAMINATION: XR CHEST CLINICAL INFORMATION: D72.829 - Elevated white blood cell count, unspecified COMPARISON: December 28, 2022. TECHNIQUE: 2 views of the chest were obtained. FINDINGS: Hyperinflated lungs. No consolidation, pleural effusion or pneumothorax. Cardiomediastinal silhouette size is small, unchanged. Mild multilevel thoracic and upper lumbar spondylosis. Scapula overlapping the peripheral upper chest. Bilateral apical lung scarring. XR/XR chest 2V IMPRESSION: Consider COPD emphysematous type changes without acute airspace disease. Electronically signed by: Antwan Palmer MD 12/04/2024 09:28 AM EDT
[2024-12-04 10:06] LABS: MANUAL DIFF FLAG NO
[2024-12-04 10:08] LABS: Appearance Urine Clear; Color Urine Yellow; Glucose Urine UA Negative (Negative); Leukocyte Esterase Urine Negative (Negative); Nitrite Urine Negative (Negative); PH 6.5 (5.0-9.0); Urine Blood Negative (Negative); Urine Ketones Negative (Negative); Urine Protein Negative (Neg-Trace)
[2024-12-04 10:12] LABS: Basophils Absolute Auto 0.1 X10*3/uL (0.0-0.2); Basophils Percent Auto 0.7 % (0-2); Eosinophils Absolute Auto 0.2 X10*3/uL (0.0-0.4); Hemoglobin 15.1 g/dl (14.0-18.0); Imm Gran Abs Auto 0.02 X10*3/uL (0.00-0.03); Imm Gran Pct Auto 0.3 % (0.0-0.4); Lymphocytes Absolute Auto 1.2 X10*3/uL (1.2-4.9); Lymphocytes Percent Auto 16.4 % (20-40); Mean Corpuscular HGB Conc 33.6 g/dl (31.0-36.0); Mean Corpuscular Hemoglobin 30.9 pg (27.0-33.0); Mean Platelet Volume 9.5 fL (9.4-12.4); Monocytes Absolute Auto 0.7 X10*3/uL (0.1-1.2); Monocytes Percent Auto 9.4 % (2-11); Neutrophils Absolute Auto 5.3 x10*3/uL (2.0-8.3); Neutrophils Percent Auto 71.2 % (45-73); Platelet Count 213 X10*3/uL (160-400); Red Blood Count 4.89 X10*6/uL (4.60-5.80); Red Cell Distribution Width 13.1 % (11.0-16.0); White Blood Count 7.4 X10*3/uL (4.8-10.8)
--- OUTSIDE RECORDS SUMMARY | 2024-12-04 10:17 | XMS_ITS | Data Portability ---
Author Organization [employer] [place] [employer] Address [address] [place] [address] Care Team Providers Care Research Biologist Name Role Phone HIM CCA OTHER Assessment [...] traumatic iritis. Erythromycin rx sent to pharmacy. [email or web address] Not available 01/07/2024 15:43:02 Plan of Treatment Reminders Order Date Submit Date Provider Last Modified By Organization Details Last Modified Time Details Appointments None recorded. Lab None recorded. Referral None recorded. Procedures None recorded. Surgeries None recorded. Imaging None recorded. Medication Orders erythromyci n 5 mg/gram (0.5 %) eye ointment 2023 024 [facility] #[id number], [address] [place], [place], [id number], 14:14:40 Patient TargetsNo targets recorded. Patient InstructionsNo [...] SNOMED-CT Code Diagnosis ICD10 Code Diagnosis Note [id number] Sharita Brantley MD Main - [facility] [address] [place] [address] 01/07/2024 14:11:41 01/07/2024 16:46:59 Acute conjunctivitis of left eye [id number] 88331 H10.32 Health Concerns Section Related Observation LastModified by Organization Detai ls LastModified Time None Recorded Concern Status LastModified by Organization Details LastModified Time None Recorded Advance Directives Directive None Recorded Payers Insurance Date Sequence Insurance Name Policy Number Policy Castro Covered Member ID Castro Member ID Guarantor Name 01/07/2024 1 [facility] - DOS ON OR AFTER 2022 - DUAL ELIGIBLE - LONG-TERM OPTIONS AND ONE CARE (MEDICARE REPLACEMENT/ADV ANTAGE - HMO) Mert Martinez [id number] Mert Martinez Notes Date Note Type Note [...] ................... ................... ................... ................... ................... ................... ........ Supervisor Record Press Note From Mary Bainse: Community Supervisor [employer] Press Jose Rafael Bains SC6 dispatched to [facility] for a 68 yom [...] or swollen compared to right eye-picture in [facility]. Pt reported lots of crust on his left eye when he woke up that AM. He denied any itching. He denied FIELD, dizziness, fever, cough, sore throat, nose or ear discomfort, CP, SOB, abd pain, N/V/D, or urinary S/S. [facility] consulted; pt was given rx for erythromycin, and instructions for its use was discussed. Red flags discussed. He was instructed to call his Opthamologist if he did not see improvement after tx. ................... ................... ................... ................... ................... ................... ................... ........ Disposition: Braulio Brantley MD [address] [facility],[address], [place], [address], [employer] 01/07/2024 15:43:06
--- OUTSIDE RECORDS SUMMARY | 2024-12-04 10:17 | XMS_ITS | Continuity of Care Document ---
Author Organization [facility] Address [address] [place] [address]- Care Team Providers Care Mobile Lounge Driver Or Operator Name Role Phone Isaias HOLLIS, Fernando Norris Primary Care Physician Encounter [facility] ACCT R [id number] Date(s): 10/17/24 - 11/29/24 [facility] [address] [place], [place] [address] Attending Physician: Tim Faust MD Admitting Physician: Tim Faust MD Referring Physician: Myah Monroe MD Encounter Type: Pre-Outpt Allergies, Adverse Reactions, [...] influenza virus vaccine, inactivated 03/31/10 Marcus rded [id number] 12y+ bivalent booster vax 04/23/22 Recorded SARS-CoV-2 mRNA ([id number]) vax 12/16/21 Recorded SARS-CoV-2 (COVID-19) mRNA BNT-162b2 [...] Refills, Maintenance, 09/26/24 10:04:00 AM EDT, Solution, [facility] #[id number], copd j44.9, 180, cm,09/26/24 9:34:00 EDT, Height [...] Soft Stop, 11/06/20 3:12:00 PM EDT, Tablet, [facility] #[id number], Partial fill upon patient request if the [...] Soft Stop, 03/22/23 2:15:00 PM EDT, Tablet, [facility] #[id number], Partial fill upon patient request if the prescription is for a schedule II opioid drug., 180, cm, 01/03/23 8:06:00 EDT, Height Start Date: 03/22/23 Status: Ordered Quantity: 6.0 Unit: tablet Repeat number: 1 Breo Ellipta 200 mcg-25 mcg/inh inhalation powder 1 puffs, Inhalation, Daily, # 1 each, 11 Refills, Maintenance, 09/26/24 10:04:00 AM EDT, Powder, [facility] #[id number], Partial fill upon patient request if the [...] 10:23:00 AM EST, Route to Pharmacy Electronically, [facility] #[id number], 180, cm, 01/14/19 9:07:00 EDT, Height Start Date: 08/23/19 Stop Date: 08/30/19 Status: Ordered Quantity: 7.0 Unit: capsule Repeat number: 1 Incruse Ellipta 62.5 mcg/inh inhalation powder 1 each, Inhalation, Every 24 hours, doses should be taken at least 24 hours apart, # 30 each, 11 Refills, Maintenance, 09/26/24 10:04:00 AM EDT, Powder, [facility] #[id number], copd j44.9, 180, cm, 09/26/24 9:34:00 EDT, [...] Refills, Maintenance, 08/23/19 10:22:00 AM EST, Tablet, [facility] #[id number], 180, cm, 01/14/19 9:07:00 EDT, Height Start [...] or A7037 Tubing A7038 or A7039 Filters [id number] strap A7046 Humidifier Chamber A7035 Headgear A7027, [...] AM EDT, Aerosol, [id number] #[id number], copd j44.9, 180, cm, 11/22/23 8:32:00 EDT, Height Start Date: 11/22/23 Stop Date: 11/16/24 Status: Ordered Quantity: 8.5 Unit: g Repeat number: 12 ProAir RespiClick 90 mcg/inh inhalation powder See Instructions, # 1 each, Refills 11 Tot. Refills 11, inhale 2 puffs by mouth every 4 hours if needed, [facility] Start Date: 12/27/18 Status: Ordered Quantity: 1.0 [...] Refills, Maintenance, 09/26/24 10:04:00 AM EDT, Aerosol, [facility] #[id number], copd j44.9, 180, cm, 09/26/24 9:34:00 EDT, [...] Position: Reference Physician Member Role: PCP Address: [address] [place] [address] Telecom: Care Team Related Persons Name: ZARINA CAVAZOS Name: MARCO A RAUSCH Name: CONCHITA GUZMAN Name: VÍCTOR DONG Insurance Providers Guarantor name: GEOFFREY DONG Health Plan Information #: 1 Payer: [facility]/ONE CARE Member Number: [id number] Policy Number: NA Group Number: NA Health Plan Information #: 2 Payer: [facility] [employer]/ONE CARE Member Number: [id number] Policy Number: NA Group Number: NA
== END 2024-12-04 09:02 | disposition home or self-care (01) ==
LOC: HO.HMGCX 09:01
PROVIDERS: PCP Nurse Practitioner Family; Visit Provider Nurse Practitioner Family
DX: D72.829 Elevated white blood cell count, unspecified (principal)
CPT/HCPCS: 36415; 71046; 81003; 85025

== ENCOUNTER → 2024-12-04 09:16 | Outpatient (BNV) | payer OTHER, SELFPAY | PROVIDERS: PCP Nurse Practitioner Family; Visit Provider Radiology Diagnostic Radiology | DX: D72.829 Elevated white blood cell count, unspecified (principal) | CPT/HCPCS: 71046 ==

== ENCOUNTER 2024-12-16 11:40 | Day surgery (SDC) | payer OTHER, SELFPAY ==
--- OUTSIDE RECORDS SUMMARY | 2024-11-11 16:29 | XMS_ITS | Data Portability ---
Author Organization [email or web address] [employer] Address [address] [place] [address] Care Team Providers Care Irish Moss Bleacher Name Role Phone HIM CCA OTHER Assessment [...] traumatic iritis. Erythromycin rx sent to pharmacy. [facility] Not available 01/07/2024 15:43:02 Plan of Treatment Reminders Order Date Submit Date Provider Last Modified By Organization Details Last Modified Time Details Appointments None recorded. Lab None recorded. Referral None recorded. Procedures None recorded. Surgeries None recorded. Imaging None recorded. Medication Orders erythromyci n 5 mg/gram (0.5 %) eye ointment 2023 024 [id number], [address] [place], [place], [phone], 14:14:40 Patient TargetsNo targets recorded. Patient InstructionsNo [...] SNOMED-CT Code Diagnosis ICD10 Code Diagnosis Note [id number] Sharita Brantley MD Main - [facility] [address] [place] [address] 01/07/2024 14:11:41 01/07/2024 16:46:59 Acute conjunctivitis of left eye [id number] 62284 H10.32 Health Concerns Section Related Observation LastModified by Organization Detai ls LastModified Time None Recorded Concern Status LastModified by Organization Details LastModified Time None Recorded Advance Directives Directive None Recorded Payers Encounter Date Sequence Insurance Name Policy Number Policy Castro Covered Member ID Castro Member ID Guarantor Name 01/07/2024 1 [facility] - DOS ON OR AFTER 2022 - DUAL ELIGIBLE - CORRECTION OPTIONS AND ONE CARE (MEDICARE REPLACEMENT/ADV ANTAGE - HMO) Mert Martinez [id number] Mert Martinez Notes Date Note Type Note Provider Name and Address Organization Details Recorded Time 01/07/2024 text/html CRC Nurse Triage Notes (Alayan March): Reason For Request: Patient woke up with possible pink eye, pus coming out of eye Chief Complaints: Pain PMH: COPD/Asthma, Other Allergies: No Known Comments: Left eye drainage since yesterday. Drainage is white and watery fluid. Eye is red and irritated. Has implants both eyes. ................... ................... ................... ................... ................... ................... ................... ........ Underground Foreman Note From Mary Bainse: Community Underground Foreman Jose Rafael Bains SC6 dispatched to a [facility] for a 68 yom C/O left [...] or swollen compared [facility]. Pt reported lots of crust on his left eye when he woke up that AM. He denied any itching. He denied FIELD, dizziness, fever, cough, sore throat, nose or ear discomfort, CP, SOB, abd pain, N/V/D, or urinary [facility] [place] [facility] consulted; pt was given rx for erythromycin, and instructions for its use was discussed. Red flags discussed. He was instructed to call his Opthamologist if he did not see improvement after tx. ................... ................... ................... ................... ................... ................... ................... ........ Disposition: Braulio Brantley MD [address] [facility],[address], [place], [address], [employer] 01/07/2024 15:43:06
--- OUTSIDE RECORDS SUMMARY | 2024-11-11 16:30 | XMS_ITS | Continuity of Care Document ---
Author Organization [facility] Address [address] [place] [address]- Care Team Providers Care Doorperson Or Luggage Porter Name Role Phone Isaias HOLLIS, Fernando Norris Primary Care Physician Encounter [facility] Date(s): 10/11/24 - 11/10/24 [facility] [address] [facility] [address] [place], [place] [address] Encounter Type: Triage Allergies, Adverse Reactions, Alerts No Known Allergies Immunizations Given and Recorded Vaccine Date Status Refusal Reason pneumococcal 20-valent conjugate vaccine 05/03/23 Recorded influenza virus vaccine, inactivated 03/13/23 Marcus rded influenza virus vaccine, inactivated 04/23/22 Marcus rded influenza virus vaccine, inactivated 04/06/21 Marcus rded influenza virus vaccine, inactivated 02/28/18 Marcus rded influenza virus vaccine, inactivated 05/11/17 Marcus rded influenza virus vaccine, inactivated 04/01/11 Marcus rded influenza virus vaccine, inactivated 03/31/10 Marcus rded [id number] 12y+ bivalent booster vax 04/23/22 Recorded SARS-CoV-2 mRNA (bwzuujl-lcuk-ujjho) vax 12/16/21 Recorded SARS-CoV-2 (COVID-19) mRNA BNT-162b2 vac 04/16/21 Recorded SARS-CoV-2 (COVID-19) mRNA BNT-162b2 vac 10/15/20 Recorded SARS-CoV-2 (COVID-19) mRNA BNT-162b2 vac 09/24/20 Recorded pneumococcal 23-valent vaccine 05/21/12 Recorded tetanus-diphtheria toxoids (Td) 03/31/10 Recorded hepatitis B pediatric vaccine 09/05/06 Recorded Hepatitis A Pediatric Vaccine 09/05/06 Recorded Medications albuterol 0.083% inhalation solution 3 mL = 2.5 mg, Inhalation, Every 6 hours, PRN for wheezing/shortness of breath, # 180 mL, 11 Refills, Maintenance, 09/26/24 10:04:00 AM EDT, Solution, [facility] #[id number], copd j44.9, 180, cm,09/26/24 9:34:00 EDT, Height Start Date: 09/26/24 Stop Date: 09/21/25 Status: Ordered Quantity: 180.0 Unit: mL Repeat [...] Refills, Soft Stop, 11/06/20 3:12:00 PM EDT, [facility][id number], Partial fill upon patient request if the prescription is for a schedule II opioid drug., 180, cm, 09/07/20 12:38:00 EST, Height Start Date: 11/06/20 Status: Ordered Quantity: 6.0 Unit: tablet Repeat number: 2 Azithromycin 5 Day Dose Pack 250 mg oral tablet 1 pack/packet, By Mouth, Once, as directed on package labeling, # 6 tablet, 0 Refills, Soft Stop, 03/22/23 2:15:00 PM EDT, [facility] #[id number], Partial fill upon patient request if the prescription is for a schedule II opioid drug., 180, cm, 01/03/23 8:06:00 EDT, Height Start Date: 03/22/23 Status: Ordered Quantity: 6.0 Unit: tablet Repeat number: 1 Breo Ellipta 200 mcg-25 mcg/inh inhalation powder 1 puffs, Inhalation, Daily, # 1 each, 11 Refills, Maintenance, 09/26/24 10:04:00 AM EDT, Powder, [facility] #[id number], Partial fill upon patient request if the prescription is for a schedule IIopioid drug., 1 puffs Inhalation Daily,x30 days, 180, cm, 09/26/24 9:34:00 EDT, Height Start Date: 09/26/24 Stop Date: 09/21/25 Status: Ordered Quantity: 1.0 Unit: each Repeat [...] Quantity: 1.0 Unit: each Repeat number: 1 esomeprazole 40 mg oral enteric coated capsule 0 Refills, Maintenance, 09/26/24 9:39:00 AM EDT, Partial fill upon patient request if the prescription is for a schedule II opioid drug. Start Date: 09/26/24 Status: Ordered Repeat number: 1 Flomax 0.4 mg oral capsule 0.4 mg, 1, capsule, By Mouth, Daily, # 7 capsule, Refills 0, Tot. Refills 0, Maintenance, 08/23/19 10:23:00 AM EST, Route to Pharmacy Electronically, [facility] #[id number], 180, cm, 01/14/19 9:07:00 EDT, Height Start Date: 08/23/19 Stop Date: 08/30/19 Status: Ordered Quantity: 7.0 Unit: capsule Repeat number: 1 Incruse Ellipta 62.5 mcg/inh inhalation powder 1 each, Inhalation, Every 24 hours, doses should be taken at least 24 hours apart, # 30 each, 11 Refills, Maintenance, 09/26/24 10:04:00 AM EDT, Powder, [facility] #[id number], copd j44.9, 180, cm, 09/26/24 9:34:00 EDT, Height Start Date: 09/26/24 Stop Date: 09/21/25 Status: Ordered Quantity: 30.0 Unit: each Repeat [...] Refills, Maintenance, 08/23/19 10:22:00 AM EST, Tablet, [facility] #[id number], 180, cm, 01/14/19 9:07:00 EDT, Height Start [...] or A7037 Tubing A7038 or A7039 Filters J6244Rxxv strap A7046 Humidifier Chamber A7035 Headgear A7027, [...] AM EDT, Aerosol, Route to Pharmacy Electronically, [id number], [facility] #[id number], copd j44.9, 180, cm, 11/22/23 8:32:00 EDT, Height Start Date: 11/22/23 Stop Date: 11/16/24 Status: Ordered Quantity: 8.5 Unit: g Repeat number: 12 ProAir RespiClick 90 mcg/inh inhalation powder See Instructions, # 1 each, Refills 11 Tot. Refills 11, inhale 2 puffs by mouth every 4 hours if needed, [facility] Start Date: 12/27/18 Status: Ordered Quantity: 1.0 [...] wheezing, # 8.5 Gm, 5 Refills, Maintenance, 09/26/24 10:04:00 AM EDT, Aerosol, [facility] #[id number], copd j44.9, 180, cm, 09/26/24 9:34:00 EDT, Height Start Date: 09/26/24 Stop Date: 03/25/25 Status: Ordered Quantity: 8.5 Unit: g Repeat [...] Position: Reference Physician Member Role: PCP Address: [address] [place] [address] Telecom: Care Team Related Persons Name: ZARINA CAVAZOS Name: MARCO A RAUSCH Name: CONCHITA GUZMAN Name: VÍCTOR DONG Insurance Providers Guarantor name: GEOFFREY DONG Health Plan Information #: 1 Payer: [facility]/ONE CARE Member Number: NA Policy Number: NA Group Number: NA
[2024-12-12 12:38] VITALS: BMI 19.5
--- NOTE | 2024-12-13 10:23 | P.CONAN_ITS ---
Documented by User: Haley Lange NP 12/13/24 10:25 HPI - Anesthesia Eval Consult details Narrative: 69yo M for Cystoscopy s/p same 05/2024 with [facility] Active Problems Active Problems: All Active Problems Leukocytosis (Acute) Elevated PSA (Acute) Finger wound, simple, open (Acute) Loss of hearing (Acute) Dyslipidemia (Acute) Tinea (Acute) Cerumen impaction (Acute) Skin lesion (Acute) Nephrolithiasis (Acute) Bladder cancer (Acute) Bladder neoplasm of uncertain malignant potential (Acute) Abdominal pain (Acute) Hematemesis (Acute) Complaint of melena (Acute) Carpal tunnel syndrome of right wrist (Acute) Numbness of right hand (Acute) Abnormal MRI scan, arm (Acute) Right elbow pain (Acute) Right forearm pain (Acute) Right wrist pain (Acute) Screening for colon cancer (Acute) Screening PSA (prostate specific antigen) (Acute) Physical exam (Acute) DDD (degenerative disc disease), lumbar (Acute) Low back pain radiating to both legs (Acute) Pseudofolliculitis (Acute) Abscess (Acute) Hand injury (Acute) COPD (chronic obstructive pulmonary disease) (Acute) Unilateral primary osteoarthritis, right knee (Acute) Chronic GERD (Acute) History of smoking (Acute) Bronchitis with chronic airway obstruction (Acute) Acute asthma (Acute) High cholesterol (Acute) Past Medical History Medical History Sleep apnea Normal esophagogastroduodenoscopy (EGD) DDD (degenerative disc disease), lumbar COPD (chronic obstructive pulmonary disease) Renal calculi Bladder cancer Bilateral cataracts Muscle pain High cholesterol Asthma GERD (gastroesophageal reflux disease) Family History Family history of problems with anesthesia: No Surgical History Surgical History History of transurethral resection of bladder tumor (TURBT) History of carpal tunnel release History of testicular surgery Hx of lithotripsy History of esophagogastroduodenoscopy (EGD) H/O colonoscopy Hx of cystoscopy History of Problems with Anesthesia: No Social History Social History Housing: Apartment Patient Tobacco Use Status: Former Tobacco user Tobacco use type: Cigarette Years Smoked: quit 2 years ago e-Cigarette/Vaping Use: Never Used Second Hand Smoke Exposure: No Use of substances other than those prescribed or required for medical reasons: Yes Substance Use Frequency: Daily Have you been hit, kicked, punched, or otherwise hurt by someone within the past year? If so, by whom?: No Are you DNR?: No Advance Directives: No Advance Directives Information Provided: Yes service: No Current occupational status: disabled Cognitive needs: No Hearing needs: No Vision needs: No Meds Allergies Allergy/AdvReac Type Severity Reaction Status Date / Time No Known Allergies Allergy Verified 12/16/24 12:26 [No Known Allergies*] Home Medications ?Medication ?Instructions ?Recorded ?Confirmed ?Last Taken ?Type umeclidinium 62.5 mcg/actuation 1 inh inhalation DAILY 08/23/21 12/16/24 12/15/24 History blister powder for inhalation (Incruse Ellipta) calcipotriene 0.005 % topical cream 1 appl topical QAM 10/16/24 12/16/2412/15 History fluticasone furoate 200 inhalation 10/16/24 12/15/24 History mcg-vilanterol 25 mcg/dose inhalation powder vit C 250 mg-vit E 90 mg-zinc 40 1 cap PO BID 10/16/24 12/16/24 12/15/24 History mg-copper 1 [id number]-qlcoea capsule (PreserVision AREDS-2) Exam Height,Weight and Vital Signs: Height 5 ft 11 in Weight 63.503 kg Pertinent Lab Results Pertinent Lab Results: Laboratory Tests 11/28/24 12/04/24 10:32 09:04 WBC 7.4 Hgb 15.1 Hct 45.0 Plt Count 213 Sodium 145 Potassium 4.1 Chloride 112 H Carbon Dioxide 26 BUN 20 H Creatinine 0.65 Assessment and Plan Assessment Anesthesia Assessment: Chart Reviewed Final Anesthetic Review Family History of Problems with Anesthesia: No History of Problems with Anesthesia: No Documented by User: Bowen Leone MD 12/16/24 13:58 [facility] Past Medical History Medical History Sleep apnea Normal esophagogastroduodenoscopy (EGD) DDD (degenerative disc disease), lumbar COPD (chronic obstructive pulmonary disease) Renal calculi Bladder cancer Bilateral cataracts Muscle pain High cholesterol Asthma GERD (gastroesophageal reflux disease) Functional capacity: independent ambulation Surgical History Surgical History History of transurethral resection of bladder tumor (TURBT) History of carpal tunnel release History of testicular surgery Hx of lithotripsy History of esophagogastroduodenoscopy (EGD) H/O colonoscopy Hx of cystoscopy Social History Social History Housing: Apartment Patient Tobacco Use Status: Former Tobacco user Tobacco use type: Cigarette Years Smoked: quit 2 years ago e-Cigarette/Vaping Use: Never Used Second Hand Smoke Exposure: No Use of substances other than those prescribed or required for medical reasons: Yes Substance Use Frequency: Daily Have you been hit, kicked, punched, or otherwise hurt by someone within the past year? If so, by whom?: No Are you DNR?: No Advance Directives: No Advance Directives Information Provided: Yes service: No Current occupational status: disabled Cognitive needs: No Hearing needs: No Vision needs: No Meds Allergies Allergy/AdvReac Type Severity Reaction Status Date / Time No Known Allergies Allergy Verified 12/16/24 12:26 [No Known Allergies*] Home Medications ?Medication ?Instructions ?Recorded ?Confirmed ?Last Taken ?Type umeclidinium 62.5 mcg/actuation 1 inh inhalation DAILY 08/23/21 12/16/24 12/15/24 History blister powder for inhalation (Incruse Ellipta) calcipotriene 0.005 % topical cream 1 appl topical QAM 10/16/24 12/16/24 12/15/24 History fluticasone furoate 200 inhalation 10/16/24 12/15/24 History mcg-vilanterol 25 mcg/dose inhalation powder vit C 250 mg-vit E 90 mg-zinc 40 1 cap PO BID 10/16/24 12/16/24 12/15/24 History mg-copper 1 [id number]-kancqk-njdwfd capsule (PreserVision AREDS-2) Exam Airway Mallampati Class: II TM Dist: >3cm Neck ROM: Full Heart: rrr Lungs: cta Assessment and Plan Final Anesthetic Review NPO: Yes ASA Class: III Final Preanesthetic Review: No Changes in Pt Med Stat, Meds/Allgs Chart Reviewed, Consent Obtained/Reviewed and Anes Risks/Benef Reviewed Patient Risk: Low Procedure Risk: Low Anesthetic Plan Anesthetic Plan: MAC:
[2024-12-16 11:52] VITALS: BMI 19.4
[2024-12-16 11:53] VITALS: BMI 19.4
[2024-12-16 12:11] VITALS: BP 145/84; PULSE 63; RESP 17; TEMP 37.2; O2SAT 97
[2024-12-16] MEDS: Albuterol Sulfate (0.083%) 2.5 MG/3 ML VIAL.NEB INHALE (12:13)
[2024-12-16] MEDS: Lactated Ringers 1,000 ML 100 ML IVCONT (12:13)
[2024-12-16] MEDS: levoFLOXacin 500 MG TABLET PO (13:27)
--- NOTE | 2024-12-16 13:32 | MHC.SHP ---
Pre-Procedural Eval Section A - 24 Hr Update-Section A only Date of Service: 12/16/24 The patient is an INPATIENT: No Changes since office visit: No Cold of Flu in the past 2 weeks, No New Medical Problems, No Changes in Medication and No Patient answered all questions The patient has been examined within 24 hours of the surgical procedure. The History & Physical has been completed within 30 days and I have reviewed it.: Yes Section B - Complete if H&P > 30 days Chief Complaint: Malignant neoplasm of bladder, unspecified Allergies: Allergies Allergy/AdvReac Type Severity Reaction Status Date / Time No Known Allergies Allergy Verified 12/16/24 12:26 [No Known Allergies*] Plan Diagnosis/Plan: Unchanged ( check cystoscopy) I have reviewed the history and physical and performed a pertinent physical examination on my patient. No changes have occurred unless specified. Time Spent With Patient Time: Total time managing care of this patient today ____ minutes.
--- NOTE | 2024-12-16 14:18 | P.OP_ITS ---
Operative Note Operative Note Date of Service: 12/16/24 Narrative: PreOperative Diagnosis: superficial bladder cancer Post Operative Diagnosis: superficial bladder cancer Procedure: cystoscopy Surgeon: Dr Vladimir Puentes Anesthesia: sedation Indications for procedure: check cystoscopy has PTSD Procedure: After informed consent was verified the patient was brought to the operating room and placed in a supine position. Anesthesia was administered per protocol. The patient was prepped and draped in a sterile fashion. Safety pause time-out was performed. Antibiotics being given. Cystoscopy performed using a disposable Urovue digital 16 Italian cystoscope. Meatus circumcised Urethra anterior and posterior urethra normal Prostatic Urethra unremarkable Bladder examination with retroflexion of cystoscope Bladder Orifices normal shape and position Bladder Capacity Normal Trabeculations 2 Cellule Formation None Diverticulum Formation None Mucosal Erythema Irritation global Bladder Tumor None Pathology: Drains:
[2024-12-16 14:25] VITALS: BP 119/84; PULSE 60; RESP 15; TEMP 36.8; O2SAT 98
[2024-12-16 14:40] VITALS: BP 122/74; PULSE 77; RESP 20; TEMP 36.8; O2SAT 98
== END 2024-12-16 15:39 | disposition home or self-care (01) ==
PROVIDERS: PCP Nurse Practitioner Family; Visit Provider Urology
PROC: 0TJB8ZZ Inspection of Bladder, Via Natural or Artificial Opening Endoscopic (ICD-10-PCS; CPT 52000; principal; 2024-12-16 13:40)
DX: C67.9 Malignant neoplasm of bladder, unspecified (principal); N32.89 Other specified disorders of bladder; Z87.442 Personal history of urinary calculi; J44.9 Chronic obstructive pulmonary disease, unspecified; K21.9 Gastro-esophageal reflux disease without esophagitis; F43.10 Post-traumatic stress disorder, unspecified; M51.369 Other intervertebral disc degeneration, lumbar region without mention of lumbar back pain or lower extremity pain; G47.33 Obstructive sleep apnea (adult) (pediatric)
CPT/HCPCS: 52000; J2003; J2704; J3010

== ENCOUNTER → 2024-12-16 11:40 | Outpatient (BNV) | payer OTHER, SELFPAY | PROVIDERS: PCP Nurse Practitioner Family; Visit Provider Urology | DX: C67.9 Malignant neoplasm of bladder, unspecified (principal) | CPT/HCPCS: 52000 ==

== ENCOUNTER 2025-01-31 09:21 | Outpatient (AMB) | payer OTHER, SELFPAY ==
--- OUTSIDE RECORDS SUMMARY | 2025-01-31 09:25 | XMS_ITS | Encounter Summary ---
Author Organization [facility] Address [address] [place] [address] Phone Care Team Providers Care Director Of Hotel Operations Name Role Phone Pcp, Unknown Primary Care Provider Unavailabl e Encounter Details Date Type Department Care Team (Latest Contact Info) Description 10/04/2017 Ancillary Orders [facility] [address] [place] [address] [place] [address] Iván Sorenson MD [address] [place] [phone] [email or web address] Syncope and collapse Social History Tobacco Use Types Packs/Day Years Used Date Smoking Tobacco: Never Assessed Sex and Gender Information Value Date Recorded Sex Assigned at Not on file Legal Sex Male 10:04 AM EDT Gender Identity Not on file Sexual Orientation Not on file documented as of this encounter Plan of Treatment Not on file documented as of this encounter Results * Holter Monitor 24 Hours (10/04/2017 10:14 AM EDT) Anatomical Region Laterality Modality Heart Other Narrative 10/04/2017 10:37 AM EDT Holter monitor report Indication syncope Findings: The underlying rhythm is a normal sinus rhythm with average heart rate of 69 bpm, minimum heart rate 46 beats minute and maximum heart rate 112 bpm. There are rare isolated PVCs. There are rare isolated premature atrial contractions. No abnormal arrhythmias. Conclusion: Normal Holter monitor. Iván Sorenson MD [facility] ORDERABLES Final Result documented in this encounter Visit Diagnoses Diagnosis Syncope and collapse Syncope and collapse documented in this encounter Care Teams Director Of Hotel Operations Relationship Specialty Start Date End Date Pcp, Unknown PCP - General 10/04/17 documented as of this encounter Additional Source Comments The information contained in this document represents components of the legal health record. It is not the complete legal health record.[facility]
--- OUTSIDE RECORDS SUMMARY | 2025-01-31 09:25 | XMS_ITS | Data Portability ---
Author Organization [employer] [facility] Address [address] [place] [address] Care Team Providers Care Branch Chief Name Role Phone HIM CCA OTHER Assessment [...] traumatic iritis. Erythromycin [facility] [place] [facility] Not available 01/07/2024 15:43:02 Plan of Treatment Reminders Order Date Submit Date Provider Last Modified By Organization Details Last Modified Time Details Appointments None recorded. Lab None recorded. Referral None recorded. Procedures None recorded. Surgeries None recorded. Imaging None recorded. Medication Orders erythromyci n 5 mg/gram (0.5 %) eye ointment 2023 024 [id number], [address] [place], [place], [phone], 14:14:40 Patient TargetsNo targets recorded. Patient InstructionsNo [...] Respiratory rate Heart rate Body temperature Systolic And Diastolic Provider Name and Address Organization Details Last Updated DateTime 01/07/2024 16 /min 88 /min 98.5 [degF] 110/70 mm[Hg] Not Available [facility] production 14:47:44 Social History None recorded. Functional Status None recorded. Mental Status None recorded. Family History Nothing Reported. Medical History No medical history recorded. Past Encounters Encounter ID Performer Location Encounter Start Date Encounter Closed Date Diagnosis/Indication Diagnosis SNOMED-CT Code Diagnosis ICD10 Code Diagnosis Note [id number] Sharita Brantley MD Main - [facility] [address] [place] [phone] 01/07/2024 14:11:41 01/07/2024 16:46:59 Acute conjunctivitis of left eye [id number] 77973 H10.32 Health Concerns Section Related Observation LastModified by Organization Detai ls LastModified Time None Recorded Concern Status LastModified by Organization Details LastModified Time None Recorded Advance Directives Directive None Recorded Payers Insurance Date Sequence Insurance Name Policy Number Policy Castro Covered Member ID Castro Member ID Guarantor Name 01/07/2024 1 [facility] - DOS ON OR AFTER 2022 - DUAL ELIGIBLE - [employer] OPTIONS AND ONE CARE (MEDICARE REPLACEMENT/ADV ANTAGE - HMO) Mert Martinez [id number] Mert Martinez Notes Date Note Type Note [...] ................... ................... ................... ................... ................... ................... ........ Weatherization Coordinator Note From Herson Sylwia: Community Weatherization Coordinator Jose Rafael Bains SC6 dispatched to a [facility] for a 68 yom C/O [...] [facility] Pt reported lots of crust on his left eye when he woke up that AM. He denied any itching. He denied FIELD, dizziness, fever, cough, sore throat, nose or ear discomfort, CP, SOB, abd pain, N/V/D, or urinary S/S. [facility] consulted; pt was given rx for erythromycin, and instructions for its use was discussed. Red flags discussed. He was instructed to call his Opthamologist if he did not see improvement after tx. ................... ................... ................... ................... ................... ................... ................... ........ Disposition: Braulio Brantley MD [address] [facility],[address], [place], [address], [employer] 01/07/2024 15:43:06
--- NOTE | 2025-01-31 10:03 | MHC.OFFWIV ---
Intake Vital Signs 01/31/25 10:04 Height 5 ft 11 in Weight 135 lb BMI 18.8 BP 128/56 L Blood Pressure Location Rt brachial Position Sitting Pulse 67 Pulse Source Pulse Oximeter Temp 97.5 F Temp Source Oral Pulse Oximetry (%) 97 Oxygen Delivery Method Room Air Intake Visit Reasons: EP LT ear wax removal Intake Note: presents with left ear pain/wax build up s/p hearing aid fitting yesterday Patient Tobacco Use Status: Former Tobacco user Allergies No Known Allergies (No Known Allergies*) Allergy (Verified 01/31/25 10:07) Medication List - Last Reconciled 01/31/25 by Willi Rubi MD albuterol sulfate 90 mcg/actuation (Ventolin HFA) 1 puff inhalation QID PRN atorvastatin 40 mg PO DAILY 90 days bisacodyl (Dulcolax (bisacodyl)) 10 mg (2 x 5 mg) PO BEDTIME calcipotriene 0.005% 1 appl topical QAM cetirizine 10 mg PO DAILY cholecalciferol (vitamin D3) 50 mcg PO DAILY cyclobenzaprine 10 mg PO BEDTIME ear thermometer As directed fluticasone furoate-vilanterol 200-25 mcg/dose inhalation gabapentin 100 mg PO BEDTIME ibuprofen 800 mg PO Q8H ipratropium-albuterol 0.5 mg-3 mg(2.5 mg base)/3 mL 3 mL inhalation QID lansoprazole 30 mg PO DAILY nystatin 1 mL PO DAILY [rolling walker with seat and brakes As directed] sucralfate 10 mL PO BID tape thermometer (Forehead Thermometer) As directed umeclidinium 62.5 mcg/actuation (Incruse Ellipta) 1 inh inhalation DAILY vit C,Y-Jq-pjkzr-lutein-zeaxan 250-90-40-1 mg (PreserVision AREDS-2) 1 cap PO BID HPI EP LT ear wax removal HPI Details History - The patient is a 69-year-old male presenting with hearing difficulties and pain in the left ear due to a clogged ear canal. - The patient recently received new hearing aids but encountered pain when inserting the left hearing aid. - Upon attempting to insert the left hearing aid, the patient reported pain extending down the ear canal. - The patient's left ear canal was noted to be completely clogged, prompting concerns about inflammation. - The patient stated that he did not initially plan to visit the doctor but was prompted to do so due to compromised hearing and discomfort. Problem List - Clogged ear canal on the left side - Earache Patient Instructions - Complete a 5-day course of prescribed antibiotic tablets. - Return for follow-up after completing the antibiotic course for ear cleaning. Review of Systems - General: No fever no chills - Neurological: No headaches no dizziness - Ear nose throat: No sore throat Physical Exam General: No acute distress HEENT: Left ear canal completely clogged, pain present in left ear with tragus pressure Neck: Supple Respiratory system: Able to talk in full sentences, [facility] Medical History Sleep apnea Normal esophagogastroduodenoscopy (EGD) DDD (degenerative disc disease), lumbar COPD (chronic obstructive pulmonary disease) Renal calculi Bladder cancer Bilateral cataracts Muscle pain High cholesterol Asthma GERD (gastroesophageal reflux disease) Surgical History History of transurethral resection of bladder tumor (TURBT) History of carpal tunnel release History of testicular surgery Hx of lithotripsy History of esophagogastroduodenoscopy (EGD) H/O colonoscopy Hx of cystoscopy Social History Housing: Apartment Patient Tobacco Use Status: Former Tobacco user Tobacco use type: Cigarette Years Smoked: quit 2 years ago e-Cigarette/Vaping Use: Never Used Second Hand Smoke Exposure: No service: No Current occupational status: disabled Cognitive needs: No Hearing needs: No Vision needs: No Physical Exam Vital Signs: Last Vital Signs Temp 97.5 F 01/31/25 10:04 Pulse 67 01/31/25 10:04 BP 128/56 L 01/31/25 10:04 Pulse Ox 97 01/31/25 10:04 Oxygen Delivery Method Room Air 01/31/25 10:04 BMI result Body Mass Index 18.8 Assessment & Plan Assessment & Plan (1) Pain in right ear: Code(s): H92.01 - Otalgia, right ear (2) Impacted cerumen, right ear: Code(s): H61.21 - Impacted cerumen, right ear Plan History - The patient is a 69-year-old male presenting with hearing difficulties and pain in the left ear due to a clogged ear canal. - The patient recently received new hearing aids but encountered pain when inserting the left hearing aid. - Upon attempting to insert the left hearing aid, the patient reported pain extending down the ear canal. - The patient's left ear canal was noted to be completely clogged, prompting concerns about inflammation. - The patient stated that he did not initially plan to visit the doctor but was prompted to do so due to compromised hearing and discomfort. Problem List - Clogged ear canal on the left side - Earache Patient Instructions - Complete a 5-day course of prescribed antibiotic tablets. - Return for follow-up after completing the antibiotic course for ear cleaning. Medications: New azithromycin Take 2 tablets today then 1 daily 250 mg PO ONCE 6 tabs 0RF 5 days J06.9 - Acute upper respiratory infection, unspecified Coding Level of Care Code Est Pt Level 3 (89332) Diagnoses Pain in right ear H92.01 Impacted cerumen, right ear H61.21
[2025-01-31 10:04] VITALS: BP 128/56; PULSE 67; TEMP 36.4; O2SAT 97; BMI 18.8
== END 2025-01-31 11:13 | disposition home or self-care (01) ==
PROVIDERS: PCP Nurse Practitioner Family; Visit Provider Internal Medicine
DX: H92.01 Otalgia, right ear (principal); H61.21 Impacted cerumen, right ear

== ENCOUNTER → 2025-01-31 09:21 | Outpatient (BNVA) | payer OTHER, SELFPAY | PROVIDERS: PCP Nurse Practitioner Family; Visit Provider Internal Medicine | DX: H61.21 Impacted cerumen, right ear (principal) | CPT/HCPCS: 99212 ==

== ENCOUNTER 2025-02-11 09:44 | Outpatient (AMB) | payer OTHER, SELFPAY ==
[2025-02-11 09:48] VITALS: BP 128/78; PULSE 89; RESP 16; TEMP 36.8; O2SAT 96; BMI 19.4
--- NOTE | 2025-02-11 09:48 | A.OFFPC_ITS ---
Vital Signs 02/11/25 09:48 Height 5 ft 11 in Weight 139 lb BMI 19.4 BP 128/78 Blood Pressure Location Lt brachial Position Sitting Respiration 16 Pulse 89 Pulse Source Pulse Oximeter Temp 98.3 F Temp Source Oral Pulse Oximetry (%) 96 Oxygen Delivery Method Room Air Intake Visit Reasons: 6m follow up Stove Fitter Required: No Accompanied by: Self / Same As Patient Allergies No Known Allergies (No Known Allergies*) Allergy (Verified 02/11/25 10:57) Medication List - Last Reconciled 02/11/25 by MORALES JeronimoP- albuterol sulfate 90 mcg/actuation (Ventolin HFA) 1 puff inhalation QID PRN atorvastatin 40 mg PO DAILY 90 days bisacodyl (Dulcolax (bisacodyl)) 10 mg (2 x 5 mg) PO BEDTIME calcipotriene 0.005% 1 appl topical QAM cetirizine 10 mg PO DAILY cholecalciferol (vitamin D3) 50 mcg PO DAILY ear thermometer As directed fluticasone furoate-vilanterol 200-25 mcg/dose inhalation gabapentin 100 mg PO BEDTIME ibuprofen 800 mg PO Q8H ipratropium-albuterol 0.5 mg-3 mg(2.5 mg base)/3 mL 3 mL inhalation QID lansoprazole 30 mg PO DAILY nystatin 1 mL PO DAILY [rolling walker with seat and brakes As directed] sucralfate 10 mL PO BID tape thermometer (Forehead Thermometer) As directed umeclidinium 62.5 mcg/actuation (Incruse Ellipta) 1 inh inhalation DAILY vit C,L-He-ahdio-lutein-zeaxan 250-90-40-1 mg (PreserVision AREDS-2) 1 cap PO BID Tobacco use date assessed: 08/15/24 Fall risk assessment: No Falls in past year Last assessed Fall Risk: 02/11/25 Dental Screening Dental Screen Date: 08/15/24 Did you have a dental visit in the last 12 months?: No Did you have a dental problem in the last 6 months where you did not have access to dental care?: No HPI 6m follow up HPI Details Chief Complaint The patient presents for follow-up regarding cerumen impaction and preventative care. History of Present Illness The patient is a 69-year-old male presenting with cerumen impaction and preventative care follow-up. He has a history of tobacco use disorder, having smoked for many years before quitting six years ago. He follows up with pulmonary specialists for low-dose CT scans as part of lung cancer screening due to his smoking history. The patient is currently on atorvastatin 40 mg for hyperlipidemia, with plans to monitor his cholesterol levels through laboratory tests in the near future. He reports experiencing dyspnea on exertion in extreme temperatures, such as hot and humid or severely cold environments. The patient is scheduled to receive hearing aids but has a left ear cerumen impaction, which is planned to be flushed during this visit. Social History - Tobacco use: Former smoker, quit six y ears ago after many years of smoking. Health Maintenance - Lung cancer screening: Low-dose CT sca ns due to history of smoking. Review of Systems - Respiratory: Reports dyspnea on exerti on in extreme temperatures. - Cardiovascular: Denies chest pain. Physical Exam General: Cooperative, healthy appearing, comfortable, no acute distress and well developed Orientation: Patient oriented x3 Limitations: No limitations Head: Normal to inspection Ears: Hearing grossly normal in the right ear, left ear full of cerumen. after ear lavage, TM seen Nose: Normal external nose present Face and sinus: Normal facial exam Eyes: Appearance normal, both eyes and all related structures Neck: Normal visual inspection and Yes full ROM Respiratory: Diminished air movement, able to speak in complete sentences, otherwise Clear to auscultation bilaterally Cardiovascular: Regular rate and rhythm. Normal S1 and S2, no carotid bruits noted GI: Normal to inspection. Soft to palpation and nontender Skin: No rashes or lesions noted Neuro: Patient oriented x3 Extremities: Normal to inspection Results Plan The patient will continue to follow up with pulmonary specialists for low-dose CT scans as part of lung cancer screening due to his history of smoking. He is advised to continue atorvastatin 40 mg for hyperlipidemia and to have laboratory tests conducted soon to monitor cholesterol levels. The cerumen impaction in the left ear will be flushed during this visit to facilitate the fitting of hearing aids. Discussion Notes I discussed with the patient the importance of continuing low-dose CT scans for lung cancer screening due to his smoking history. We also talked about maintaining atorvastatin therapy for hyperlipidemia and the need for upcoming lab tests to monitor his cholesterol levels. The plan to flush the cerumen impaction in his left ear was also reviewed to ensure proper fitting of hearing aids. Patient Instructions - Continue with low-dose CT scans for mars ng cancer screening as advised by your coding specialist home health. - Maintain atorvastatin 40 mg daily and schedule lab tests soon to check cholesterol levels. - Follow up [facility] for hearing aid fitting. [facility] Medical History Sleep apnea Normal esophagogastroduodenoscopy (EGD) DDD (degenerative disc disease), lumbar COPD (chronic obstructive pulmonary disease) Renal calculi Bladder cancer Bilateral cataracts Muscle pain High cholesterol Asthma GERD (gastroesophageal reflux disease) Surgical History History of transurethral resection of bladder tumor (TURBT) History of carpal tunnel release History of testicular surgery Hx of lithotripsy History of esophagogastroduodenoscopy (EGD) H/O colonoscopy Hx of cystoscopy Social History Housing: Apartment Patient Tobacco Use Status: Former Tobacco user Tobacco use type: Cigarette Years Smoked: quit 2 years ago e-Cigarette/Vaping Use: Never Used Second Hand Smoke Exposure: No service: No Current occupational status: disabled Cognitive needs: No Hearing needs: No Vision needs: No Questionnaire Thrive Questionnaire Date Thrive assessed: 08/15/24 HAN-7 AMB Questionnaire HAN-7 Date HAN - 7 assessed: 08/15/24 Source: Developed by Drs. Luis Byrd, Siobhan Hughes, Rene Ge and colleagues, with an educational [email or web address] from [email or web address]. Physical exam (Primary Care) Vital Signs: Last Vital Signs Temp 98.3 F 02/11/25 09:48 Pulse 89 02/11/25 09:48 Resp 16 02/11/25 09:48 BP 128/78 02/11/25 09:48 Pulse Ox 96 02/11/25 09:48 Oxygen Delivery Method Room Air 02/11/25 09:48 BMI result Body Mass Index 19.4 Tobacco/Smoking Status: Tobacco use Status Tobacco use date assessed 08/15/24 02/11/25 09:49 Patient Tobacco Use Status Former Tobacco user 02/11/25 09:49 Tobacco use type Cigarette 02/11/25 09:49 e-Cigarette/Vaping Use Never Used 02/11/25 09:49 Thrive Assessment: Date of Thrive Assessment Date Thrive assessed 08/15/24 02/11/25 09:49 Office Procedures Cerumen Removal From which ear canal was the cerumen removed: left Removal: irrigation Notes: patient tolerated procedure well, no complications and ear canal clear [id number] Irrigation/Lavage Coding Level of Care Code Est Pt Level 3 (37326) Diagnoses Dyslipidemia E78.5 Cerumen impaction H61.20 CPT Codes Office Procedure - CPT: 82352-Hts Irrigation/Lavage ([id number]) Assessment & Plan Assessment & Plan (1) Dyslipidemia: Code(s): E78.5 - Hyperlipidemia, unspecified Category: Medical (2) Cerumen impaction: Code(s): H61.20 - Impacted cerumen, unspecified ear Category: Medical Plan . Orders: Orders Complete Blood Count Auto Diff Today E78.5 - Hyperlipidemia, unspecified Comprehensive [place]. Panel Fast Today E78.5 - Hyperlipidemia, unspecified UA CC w/rflx Micro + Cult Today E78.5 - Hyperlipidemia, unspecified Lipid Panel Today E78.5 - Hyperlipidemia, unspecified TSH reflex Free T4 Today E78.5 - Hyperlipidemia, unspecified
--- OUTSIDE RECORDS SUMMARY | 2025-02-11 10:19 | XMS_ITS | Encounter Summary ---
Author Organization [facility] Address [address] [place] [phone] Phone Care Team Providers Care Brazer Repair And Salvage Name Role Phone Pcp, Unknown Primary Care Provider Unavailabl e Encounter Details Date Type Department Care Team (Latest Contact Info) Description 10/04/2017 Ancillary Orders [facility] [address] [place] [address] [place] [address] Iván Sorenson MD [address] [place] [phone] [email or web address] Syncope and collapse Social History Tobacco [...] collapse documented in this encounter Care Teams [employer] Relationship Specialty Start Date End Date Pcp, Unknown PCP - General 10/04/17 documented as of this encounter Additional Source Comments The information contained in this document represents components of the legal health record. It is not the complete legal health record.[facility]
== END 2025-02-11 11:34 | disposition home or self-care (01) ==
LOC: HO.HMCC 09:45
PROVIDERS: PCP Nurse Practitioner Family; Visit Provider Nurse Practitioner Family
DX: E78.5 Hyperlipidemia, unspecified (principal); H61.22 Impacted cerumen, left ear

== ENCOUNTER → 2025-02-11 09:44 | Outpatient (BNVA) | payer OTHER, SELFPAY | PROVIDERS: PCP Nurse Practitioner Family; Visit Provider Nurse Practitioner Family | DX: H61.22 Impacted cerumen, left ear (principal); E78.5 Hyperlipidemia, unspecified; Z79.899 Other long term (current) drug therapy | CPT/HCPCS: 69209; 99212 ==

== ENCOUNTER 2025-03-18 09:22 | Outpatient (REF) | payer OTHER, SELFPAY ==
--- OUTSIDE RECORDS SUMMARY | 2025-03-18 10:18 | XMS_ITS | Encounter Summary ---
Author Organization [facility] Address [address] [place] [phone] Phone Care Team Providers Care Dry Mop Maker Name Role Phone Pcp, Unknown Primary Care Provider Unavailabl e Encounter Details Date Type Department Care Team (Latest Contact Info) Description 10/04/2017 Ancillary Orders [facility] [address] [place] [address] [place] [address] Iván Sorenson MD [address] [place] [phone] [email or web address] Syncope and collapse Social History Tobacco Use [...] collapse documented in this encounter Care Teams Dry Mop Maker Relationship Specialty Start Date End Date Pcp, Unknown PCP - General 10/04/17 documented as of this encounter Additional Source Comments The information contained in this document represents components of the legal health record. It is not the complete legal health record.[facility]
--- OUTSIDE RECORDS SUMMARY | 2025-03-18 10:18 | XMS_ITS | Clinical Summary ---
Author Organization [facility] Address [address] [place] [phone] Phone Care Team Providers Care Forging Press Operator Name Role Phone Pcp, Unknown Primary Care Provider Unavailabl e Social History Tobacco Use Types Packs/Day Years Used Date Smoking Tobacco: Never Assessed Sex and Gender Information Value Date Recorded Sex Assigned at Not on file Legal Sex Male 10:04 AM EDT Gender Identity Not on file Sexual Orientation Not on file Plan of Treatment Not on file Medical Devices Not on file Insurance [facility] MEDICARE [place] [address] [place] [address] CARE MEDICARE REPLACEMENT CARE MEDICARE REPLACEMENT MEDICARE REPLACEMENT CARE MEDICARE REPLACEMENT [facility] CARE MEDICARE REPLACEMENT Care Teams Forging Press Operator Relationship Specialty Start Date End Date Pcp, Unknown PCP - General 10/04/17 Additional Source Comments The information contained in this document represents components of the legal health record. It is not the complete legal health record.[facility]
[2025-03-18 10:52] LABS: MANUAL DIFF FLAG NO
[2025-03-18 10:58] LABS: Hematocrit 45.8 % (42.0-52.0); Hemoglobin 15.0 g/dl (14.0-18.0); Imm Gran Abs Auto 0.01 X10*3/uL (0.00-0.03); Imm Gran Pct Auto 0.1 % (0.0-0.4); Lymphocytes Absolute Auto 1.1 X10*3/uL (1.2-4.9); Mean Corpuscular HGB Conc 32.8 g/dl (31.0-36.0); Mean Corpuscular Hemoglobin 30.9 pg (27.0-33.0); Mean Corpuscular Volume 94.2 fL (80.0-98.0); NRBC Abs Auto 0.000 X10*3/uL (0.0-0.012); NRBC Pct Auto 0.0 /100WBC (0.0-0.2); Platelet Count 206 X10*3/uL (160-400); Red Blood Count 4.86 X10*6/uL (4.60-5.80); White Blood Count 7.4 X10*3/uL (4.8-10.8)
[2025-03-18 12:44] LABS: Alanine Aminotransferase 10 U/L (0-40); Albumin Level 4.2 g/dL (3.5-5.0); Alkaline Phosphatase 103 U/L (39-117); Anion Gap 13 (12-20); Aspartate Amino Transferase 19 U/L (5-37); Blood Urea Nitrogen 19 mg/dL (9-16); Calcium 9.1 mg/dL (8.4-10.2); Carbon Dioxide 28 mmol/L (22-29); Chloride 110 mmol/L (96-108); Cholesterol 140 mg/dL (<200); Estimated Glomerular Filt Rate > 60; HDL Cholesterol 41 mg/dL (>40); Potassium 4.5 mmol/L (3.3-5.1); Sodium 146 mmol/L (135-145); Total Protein 6.1 g/dL (6.5-8.0); Triglycerides 44 mg/dL (<150)
[2025-03-18 13:00] LABS: Appearance Urine Clear; Glucose Urine UA Negative (Negative); PH 8.0 (5.0-9.0); Specific Gravity - Urine 1.020 (1.005-1.025)
== END 2025-03-18 09:23 | disposition home or self-care (01) ==
LOC: HO.HMGCLDS 09:22
PROVIDERS: PCP Nurse Practitioner Family; Visit Provider Nurse Practitioner Family
DX: E78.5 Hyperlipidemia, unspecified (principal)
CPT/HCPCS: 36415; 80053; 80061; 81003; 84443; 85025

== ENCOUNTER 2025-03-19 09:14 | Outpatient (REF) | payer OTHER, SELFPAY ==
--- NOTE | ~2025-03-19 | FL_ITS ---
EXAMINATION: XR FLUOROSCOPY UPPER GI SERIES CLINICAL INFORMATION: Patient complaining of gastroesophageal reflux. COMPARISON: No prior. TECHNIQUE: Fluoroscopic air contrast upper GI examination was performed utilizing standard techniques with thin and thick barium and effervescent granules. Numerous spot images were obtained. Several fluoroscopic image hold cine sequences were also obtained. FINDINGS: UPPER GI SERIES: Lateral cine images of the oropharynx and hypopharynx demonstrate normal swallow mechanism with normal epiglottic inversion and soft palate elevation. No laryngeal penetration, glottic or subglottic aspiration identified. No nasopharyngeal reflux present. Hypopharyngeal structures appear normal without evidence of mass or diverticulum. There was mild cricopharyngeal achalasia present. Dual and single contrast images of the esophagus demonstrate normal caliber and contour. There was a granular mucosal pattern suggesting esophagitis. Esophageal peristalsis is mildly disordered. Small type I hiatus hernia present. Spontaneous gastroesophageal reflux present during the exam to the level of the thoracic inlet. Dual contrast and single contrast images of the stomach demonstrated normal contour and mucosal pattern without evidence of mass, ulceration, or other abnormality. Contrast freely passed into the gastric antrum and duodenal bulb without delay. Single and air-contrast images of the duodenal bulb demonstrate no abnormality. The duodenal sweep has a normal appearance, course, and mucosal fold appearance. FLUOROSCOPY TIME: 2 minutes, 46 seconds Number of Spot Images:11 Number of cines obtained: 7 DOSE AREA PRODUCT: 1957 uGy-m2 (microgray-meter squared) FL/FL upper GI w air w Ba Swallow IMPRESSION: 1. Mild cricopharyngeal achalasia present. 2. Mildly disorganized esophageal peristalsis. 3. Granular mucosal pattern to the esophagus suggesting esophagitis. 4. Small type I hiatus hernia present. 5. Spontaneous gastroesophageal reflux noted during the exam to the level of the thoracic inlet. 6. Diffuse prominence of the areae gastricae of the stomach, suggesting gastritis. Electronically signed by: Oskar Jordan MD 03/19/2025 10:17 AM EDT
--- OUTSIDE RECORDS SUMMARY | 2025-03-19 09:56 | XMS_ITS | Encounter Summary ---
Author Organization [facility] Address [address] [place] [phone] Phone Care Team Providers Care Hood Maker Name Role Phone Pcp, Unknown Primary Care Provider Unavailabl e Encounter Details Date Type Department Care Team (Latest Contact Info) Description 10/04/2017 Ancillary Orders [facility] [address] [place] [address] [place] [address] Iván Sorenson MD [address] [place] [phone] [email or web address] Syncope and collapse Social [...] collapse documented in this encounter Care Teams Hood Maker Relationship Specialty Start Date End Date Pcp, Unknown PCP - General 10/04/17 documented as of this encounter Additional Source Comments The information contained in this document represents components of the legal health record. It is not the complete legal health record.[facility]
--- OUTSIDE RECORDS SUMMARY | 2025-03-19 09:56 | XMS_ITS | Clinical Summary ---
Author Organization [facility] Address [address] [place] [phone] Phone Care Team Providers Care Youth Coordinator Name Role Phone Pcp, Unknown Primary Care [...] file Medical Devices Not on file Insurance [facility] MEDICARE REPLACEMENT [facility] CARE MEDICARE REPLACEMENT CARE MEDICARE REPLACEMENT MEDICARE REPLACEMENT CARE MEDICARE REPLACEMENT [facility] ONE CARE MEDICARE REPLACEMENT Care Teams Youth Coordinator Relationship Specialty Start Date End Date Pcp, Unknown PCP - General 10/04/17 Additional Source Comments The information contained in this document represents components of the legal health record. It is not the complete legal health record.[facility]
== END 2025-03-19 09:15 | disposition home or self-care (01) ==
LOC: HO.XRAY 09:14
PROVIDERS: PCP Nurse Practitioner Family; Visit Provider Nurse Practitioner Family
DX: K21.9 Gastro-esophageal reflux disease without esophagitis (principal)
CPT/HCPCS: 74246

== ENCOUNTER → 2025-03-19 09:17 | Outpatient (BNV) | payer OTHER, SELFPAY | PROVIDERS: PCP Nurse Practitioner Family; Visit Provider Radiology Diagnostic Radiology | DX: K21.9 Gastro-esophageal reflux disease without esophagitis (principal) | CPT/HCPCS: 74246 ==

== ENCOUNTER 2025-04-09 09:20 | Outpatient (REF) | payer OTHER, SELFPAY ==
[2025-04-09 15:10] LABS: Chlamydia pneumoniae PCR Not Detected (Not Detect.); Coronavirus 229E PCR Not Detected (Not Detect.); Coronavirus HKU1 PCR Not Detected (Not Detect.); Coronavirus NL63 PCR Not Detected (Not Detect.); Coronavirus OC43 PCR Not Detected (Not Detect.); RSV PCR Not Detected (Not Detect.); Rhino/Enterovirus PCR Detected (Not Detect.)
[2025-04-09 15:20] LABS: Influenza A H1 PCR Not Detected (Not Detect.); Influenza A H1-2009 PCR Not Detected (Not Detect.); Influenza A H3 PCR Not Detected (Not Detect.); SARS-CoV-2 PCR Not Detected (Not Detect.)
== END 2025-04-09 09:21 | disposition home or self-care (01) ==
LOC: HO.LNP 09:20
PROVIDERS: PCP Nurse Practitioner Family; Visit Provider Physician Assistant Medical
DX: J06.9 Acute upper respiratory infection, unspecified (principal); R09.81 Nasal congestion; R05.9 Cough, unspecified; Z87.891 Personal history of nicotine dependence
CPT/HCPCS: 87633; 99212

== ENCOUNTER 2025-04-09 09:20 | Outpatient (AMB) | payer OTHER, SELFPAY ==
--- NOTE | 2025-04-09 09:26 | AM.OFFWIN_ITS ---
Intake Vital Signs 04/09/25 09:28 Weight 137 lb BP 128/62 Blood Pressure Location Lt brachial Position Sitting Respiration 16 Pulse 78 Pulse Source Pulse Oximeter Temp 98.0 F Temp Source Oral Pulse Oximetry (%) 97 Oxygen Delivery Method Room Air Intake Visit Reasons: ep very congested Patient Tobacco Use Status: Former Tobacco user Behavioral Health Care Coordinator Required: No Accompanied by: Self / Same As Patient Allergies No Known Allergies (No Known Allergies*) Allergy (Verified 04/09/25 09:31) HPI HPI Comments History of Present Illness Details History - The patient is a 69-year-old male pres enting with congestion, wheezing, and cough with phlegm production. - Reports significant congestion, wheezi ng, and productive cough, with nasal congestion since Monday. - Suspects viral infection contracted fr om his , denies fever or chills, and has no history of allergies or asthma. - Ex-smoker, currently taking Tylenol fo r symptom relief, and missed flu shot. - He has not taken anything for his symp toms. - He has been forcing himself to eat. - He has no FIELD, sore throat, ear pain, C P, SOB, abd pain, or n/v/d. Physical Exam General: Cooperative, healthy appearing, comfortable and no acute distress Orientation/consciousness: Patient oriented x3 Limitations: No limitations Head: Normal to inspection Ears: Hearing grossly normal bilaterally, external ears normal and TM's normal bilaterally Nose: Normal external nose present, normal nares present, and no nasal discharge present. Nasal congestion noted. Face and sinus: Sinuses nontender to palpation. Mouth: Normal oral and palatal mucosa present and moist mucous membranes noted. Throat: Tonsils normal. Uvula is midline. Posterior oropharynx with erythema and no exudates. Eyes: Appearance normal, both eyes and all related structures Neck: Normal visual inspection, full ROM. No lymphadenopathy noted. Respiratory: Wheezing noted. Clear to auscultation bilaterally. Normal respiratory effort, able to speak in complete sentences. No respiratory distress, not tachypneic, no tripod positioning and no use of accessory muscles. Cardiovascular: Regular rate and rhythm. Normal S1 and S2 Skin: No rashes or lesions noted Patient was informed and verbally consented to the use of an ambient scribe for clinic note documentation during this visit COUNTS INCLUDE 234 BEDS AT THE [facility] Medical History Sleep apnea Normal esophagogastroduodenoscopy (EGD) DDD (degenerative disc disease), lumbar COPD (chronic obstructive pulmonary disease) Renal calculi Bladder cancer Bilateral cataracts Muscle pain High cholesterol Asthma GERD (gastroesophageal reflux disease) Surgical History History of transurethral resection of bladder tumor (TURBT) History of carpal tunnel release History of testicular surgery Hx of lithotripsy History of esophagogastroduodenoscopy (EGD) H/O colonoscopy Hx of cystoscopy Social History Housing: Apartment Patient Tobacco Use Status: Former Tobacco user Tobacco use type: Cigarette Years Smoked: quit 2 years ago e-Cigarette/Vaping Use: Never Used Second Hand Smoke Exposure: No service: No Current occupational status: disabled Cognitive needs: No Hearing needs: No Vision needs: No Review of Systems Const All systems reviewed & are unremarkable except as noted in HPI and below Physical Exam Vital Signs: Last Vital Signs Temp 98.0 F 04/09/25 09:28 Pulse 78 04/09/25 09:28 Resp 16 04/09/25 09:28 BP 128/62 04/09/25 09:28 Pulse Ox 97 04/09/25 09:28 Oxygen Delivery Method Room Air 04/09/25 09:28 Assessment & Plan Assessment & Plan (1) URI with cough and congestion: Code(s): J06.9 - Acute upper respiratory infection, unspecified Plan Most likely URI vs covid vs flu vs RSV vs viral illness plan - Prescribed prednisone to alleviate chest tightness. - Recommended use of an inhaler for wheezing. - Viral testing conducted to identify specific virus. - Advised to take cough medicine and decongestants for symptom relief. - will call with results - follow up with PCP Orders: Orders Resp Pathogen Panel - [facility] [place] J06.9 - Acute upper respiratory infection, uns pecified Medications: New albuterol sulfate 90 mcg/actuation 2 puffs inhalation Q6H PRN 8.5 grams 0RF shortness of breath or wheezing or cough benzonatate 100 mg PO bid-tid PRN 21 caps 0RF Cough 7 days cetirizine-pseudoephedrine 5-120 mg ER 1 tab PO BID 14 tabs 0RF 7 days prednisone 40 mg (2 x 20 mg) PO DAILY 10 tabs 0RF 5 days Coding Level of Care Code Est Pt Level 3 (52102) Diagnoses URI with cough and congestion J06.9
[2025-04-09 09:28] VITALS: BP 128/62; PULSE 78; RESP 16; TEMP 36.7; O2SAT 97
--- OUTSIDE RECORDS SUMMARY | 2025-04-09 10:58 | XMS_ITS | Clinical Summary ---
Author Organization [facility] Address [address] [place] [phone] Phone Care Team Providers Care Fork Repairer Name Role Phone Pcp, Unknown Primary Care [...] file Medical Devices Not on file Insurance [facility] MEDICARE REPLACEMENT [address] [place] [address] CARE MEDICARE REPLACEMENT CARE MEDICARE REPLACEMENT MEDICARE REPLACEMENT CARE MEDICARE REPLACEMENT [facility] ONE CARE MEDICARE REPLACEMENT Care Teams Fork Repairer Relationship Specialty Start Date End Date Pcp, Unknown PCP - General 10/04/17 Additional Source Comments The information contained in this document represents components of the legal health record. It is not the complete legal health record.[facility]
--- OUTSIDE RECORDS SUMMARY | 2025-04-09 10:58 | XMS_ITS | Encounter Summary ---
Author Organization [facility] Address [address] [place] [phone] Phone Care Team Providers Care Reshipping Clerk Name Role Phone Pcp, Unknown Primary Care Provider Unavailabl e Encounter Details Date Type Department Care Team (Latest Contact Info) Description 10/04/2017 Ancillary Orders [facility] [address] [place] [address] [place] [address] Iván Sorenson MD [address] [place] [id number] [email or web address] Syncope and collapse Social History Tobacco Use [...] collapse documented in this encounter Care Teams Reshipping Clerk Relationship Specialty Start Date End Date Pcp, Unknown PCP - General 10/04/17 documented as of this encounter Additional Source Comments The information contained in this document represents components of the legal health record. It is not the complete legal health record.[facility]
== END 2025-04-09 10:10 | disposition home or self-care (01) ==
PROVIDERS: PCP Nurse Practitioner Family; Visit Provider Physician Assistant Medical
DX: J06.9 Acute upper respiratory infection, unspecified (principal)